=== PATIENT | male | born 1945 | race Caucasian/White ===

== ENCOUNTER → 2017-01-17 | Outpatient (CLI) | payer OTHER, MEDICARE ==
[~2017-01-17] MED LIST: ASPI81TA28 PO; CHOL2000 PO; CYAN100020 PO; DVN/160 PO; FOLATE PO; HYDR-5688 PO; LEVE250T PO; MELO7.5T5 PO; METF-384 PO; MULT-506 PO; SILD1TAB11 PO; TRAM-10 PO; VSC/10 PO; ZOLP5TAB6 PO
== END | disposition home or self-care (01) ==
LOC: C.LAB 13:11
PROVIDERS: ATTEND Urology
DX: N52.9 Male erectile dysfunction, unspecified (principal); R32 Unspecified urinary incontinence; C61 Malignant neoplasm of prostate

== ENCOUNTER 2017-02-09 10:13 | Inpatient (IN) | payer OTHER, MEDICARE ==
[2017-01-17 13:28] VITALS: Ht 182.9 cm; Wt 79.3 kg
--- NOTE | 2017-01-17 14:10 | PAT Medication Instructions ---
Service Date Jan 17, 2017. Current Home Medication List Aspirin (Aspirin Ec), 81 MG PO QAM Cholecalciferol (Vitamin D3), 1 CAP PO QAM Cyanocobalamin (Vitamin B12), 1 TAB PO QAM Hydrocodone/Acetaminophen 5MG/325MG (Palisades 5MG/325MG), 1 TABLET PO Q6 PRN for Pain Levetiracetam (Keppra), 1,000 MG PO BID Meloxicam (Mobic), 7.5 MG PO Q6 PRN for QAM Metformin Hcl (Glucophage), 1,000 MG PO BID Multivitamin (Multivitamin), 1 TAB PO QAM Sildenafil Citrate (Viagra), 25 MG PO PRN Solifenacin Succinate (Vesicare), 10 MG PO DAILY PRN for PRN Tramadol (Ultram), 50 MG PO Q4H PRN for Pain Valsartan (Diovan), 160 MG PO QAM Zolpidem Tartrate (Zolpidem Tartrate), 1 TAB PO HS PRN for Insomnia [Folate], 1,000 MCG PO QAM Medication Instructions For Your Scheduled Surgery - Hold the following medications 1 week prior to surgery per surgeon's instructions: Meloxicam (Mobic), 7.5 MG PO Q6 PRN for QAM - Hold the following medications 48 hours prior to surgery: Metformin Hcl (Glucophage), 1,000 MG PO BID - Hold the following medications the morning of surgery: [Folate], 1,000 MCG PO QAM Valsartan (Diovan), 160 MG PO QAM Sildenafil Citrate (Viagra), 25 MG PO PRN Multivitamin (Multivitamin), 1 TAB PO QAM Cholecalciferol (Vitamin D3), 1 CAP PO QAM Cyanocobalamin (Vitamin B12), 1 TAB PO QAM - Take the following medications the morning of surgery with a sip of water: Tramadol (Ultram), 50 MG PO Q4H PRN for Pain (can take up to four hours before the surgery if needed) Aspirin (Aspirin Ec), 81 MG PO QAM Hydrocodone/Acetaminophen 5MG/325MG (Palisades 5MG/325MG), 1 TABLET PO Q6 PRN for Pain (can take up to four hours before the surgery if needed) Solifenacin Succinate (Vesicare), 10 MG PO DAILY PRN for PRN (if needed) Levetiracetam (Keppra), 1,000 MG PO BID - Take the following medications as scheduled the night before surgery: Zolpidem Tartrate (Zolpidem Tartrate), 1 TAB PO HS PRN for Insomnia (if needed) Levetiracetam (Keppra), 1,000 MG PO BID Tramadol (Ultram), 50 MG PO Q4H PRN for Pain (if needed) Hydrocodone/Acetaminophen 5MG/325MG (Palisades 5MG/325MG), 1 TABLET PO Q6 PRN for Pain (if needed) Solifenacin Succinate (Vesicare), 10 MG PO DAILY PRN for PRN (if needed) If you have any questions please call us at [phone] or [phone] or [phone]
[2017-01-17 14:58] LABS: BASO % 0.6 %; BASO ABS # 0.04 K/uL (0-0.2); COMPLETE YES; EOS % 4.5 %; HEMATOCRIT 34.3 % (42-52); IG% 0.3 %; LYMPH ABS # 1.57 K/uL (1.2-3.4); MEAN CELL VOLUME 90.7 fL (80-100); MEAN CORPUSCULAR HEMOGLOBIN 30.2 pg (25-34); MEAN CORPUSCULAR HGB CONC 33.2 g/dl (32-36); MEAN PLATELET VOLUME 9.8 fL (7.4-10.4); MONO % 6.2 %; NEUT % 66.4 %; PLATELET COUNT 256 K/uL (130-400); RED BLOOD COUNT 3.78 M/uL (4.7-6.1); WHITE BLOOD COUNT 7.13 K/uL (4.8-10.8)
[2017-01-17 15:00] LABS: URINE APPEARANCE CLEAR (CLEAR); URINE BILIRUBIN NEG (NEG); URINE EPITHELIAL CELL AUTO 0-5 /lpf (0-5); URINE NITRITE NEG (NEG); URINE SPECIFIC GRAVITY 1.021 (1.000-1.030); UROBILINOGEN NEG (NEG); ZZUR CULT IF INDIC CLEAN CATCH NO
[2017-01-17 15:04] LABS: MANUAL MICROSCOPIC REQUIRED? NO; REVIEW REQ? NO
[2017-01-17 15:04] LABS: ESTIMATED AVERAGE GLUCOSE 123 mg/dl; HA1C FLAG Normal (Normal)
[2017-01-17 15:05] LABS: BUN/CREATININE RATIO 20.2 (10-20); CALCIUM 9.2 mg/dl (8.5-10.1); CREATININE 0.97 mg/dl (0.60-1.40); POTASSIUM 4.1 mmol/L (3.5-5.1)
[2017-01-17 15:05] LABS: URINE COLOR YELLOW
[2017-01-17 15:08] LABS: PARTIAL THROMBOPLASTIN RATIO 1.1; PROTHROMBIN TIME (PATIENT) 10.7 SECONDS (9.0-12.0)
--- NOTE | 2017-01-17 15:11 | DIAGNOSTIC IMAGING REPORT ---
CHEST PREADMISSION(PA/LAT) CLINICAL HISTORY: Preoperative chest COMPARISON STUDY: No previous studies for comparison. FINDINGS: The cardiac and mediastinal contours are normal. There is no evidence of focal pulmonary consolidation. There is no evidence of failure. No pleural effusions are visualized.[ IMPRESSION: No active disease in the chest. Electronically signed by: Gene Boyd M.D. 01/17/2017 3:10 PM Dictated Date/Time: 01/17/2017 3:09 PM
--- NOTE | 2017-02-08 19:11 | HISTORY & PHYSICAL EXAMINATION ---
DATE OF ADMISSION: 02/09/2017 CHIEF COMPLAINT: Chronic left shoulder pain. HISTORY OF PRESENT ILLNESS: This is a 71-year-old male patient of Dr. Hardwick'james complaining of chronic left shoulder pain, longstanding, now progressively getting worse status post a fall, recently in the last couple months. MRI has confirmed a chronic rotator cuff tear. The patient wishes to proceed with a left reversed total shoulder arthroplasty. PAST MEDICAL HISTORY: Hypertension, sleep apnea, carpal tunnel syndrome, diabetes mellitus, rheumatoid arthritis, spine problems, sciatica, kidney stones, prostate cancer. SOCIAL HISTORY: Nonsmoker, nondrinker. PAST SURGICAL HISTORY: Back surgery and prostate surgery. FAMILY HISTORY: Noncontributory. REVIEW OF SYSTEMS: The patient has been complaining of chronic left shoulder pain and decreased motion and strength. Otherwise, denies any shortness of breath, chest pain, nausea, vomiting or joint complaints. MEDICATIONS: Include gabapentin 4 times daily, metformin 1000 mg b.i.d., valsartan 160 mg 2 tablets daily, zolpidem tartrate 5 mg at bedtime, VESIcare 10 mg daily, tramadol as needed, Meloxicam 15 mg daily as needed, hydrocodone as needed, Centrum Silver daily, multivitamin daily, aspirin 81 mg daily, vitamin D3 200 international units daily, vitamin B12 1000 mcg daily, Optimized Folate 1000 mcg daily. ALLERGIES: No known drug allergies. PHYSICAL EXAMINATION: GENERAL: Well-developed, well-nourished 71-year-old male in no acute distress. The patient is alert and oriented x3 and pleasant. HEENT: Normocephalic, atraumatic. Extraocular motions are intact. Pupils are equal and reactive to light. HEART: Regular rate and rhythm. No murmurs appreciated. LUNGS: Clear. ABDOMEN: Soft, nontender, bowel sounds present. EXTREMITIES: Left shoulder reveals 4/5 strength with an active range of motion of 45 degrees. Passively 95 degrees with pain. He has crepitation with passive range of motion. NEUROLOGIC: Neurovascularly, he is intact in his left upper extremity. DIAGNOSES: Left shoulder rotator cuff tendinopathy and osteoarthritis. He also has a history of hypertension, sleep apnea, carpal tunnel syndrome, diabetes mellitus, rheumatoid arthritis, spine problems, sciatica, kidney stones, prostate cancer. PLAN: The patient was advised of his diagnosis. Indications, risks, benefits, and postop course have all been reviewed. The patient wishes to proceed with a left reversed total shoulder arthroplasty. Necessary consent forms, preoperative testing and clearances will be obtained. JOELLEN
[~2017-02-09] VITALS: Ht 182.9 cm; Wt 79.3 kg
[2017-02-09] VITALS (8 sets, daily range): BP systolic 155–178; BP diastolic 73–86; PULSE 59–97; TEMP 36.3–37.1; O2SAT 98–100
[~2017-02-09 10:13] MED LIST changes: +ACETAMINOPHEN 500 MG TAB PO SCH; +ATROPINE SULFATE 0.1 MG/ML 5ML SYR IV PRN; +BUPIVACAINE/EPINEPHRINE 0.5% MPF 1:200,000 10 ML VIAL ONE; +CEFAZOLIN 2000MG IV PUSH 10 ML IV SCH; +CeleBREX 200 MG CAP PO SCH; +EpHEDrine SULFATE INJ 50 MG/ML AMP IV PRN; +FAMOTIDINE 20 MG TAB PO SCH; +FENTANYL CITRATE INJ 50 MCG/1 ML 2 ML VIAL IV PRN; +GABAPENTIN 300 MG CAP PO SCH; +HYDROmorphone INJ 1 MG/ML SYR IV PRN; +LACTATED RINGER'S 1000ML 1,000 ML IV SCH; +METOCLOPRAMIDE HCL 10 MG TAB PO SCH; +ONDANSETRON INJ 2 MG/ML 2 ML VIAL IV PRN; +ROPIVACAINE 0.5% 5 MG/ML 30 ML VIAL ONE
--- NOTE | 2017-02-09 10:46 | History & Physical Bridge Note ---
H&P Re-Evaluation Bridge Note: I have examined the patient, reviewed the History & Physical and in the interval since the performance of the History & Physical I have noted the following changes of clinical significance: No changes noted
[2017-02-09] MEDS: LACTATED RINGER'S 1000ML 1,000 ML IV SCH ×2 (10:58→18:08)
[2017-02-09] MEDS ORDERED: NEOSTIGMINE METHYLSULFATE 5 MG/5 ML SYR ONE (11:04)
[2017-02-09] MEDS ORDERED: LIDOCAINE HCL 2% 2 ML VIAL (20MG/ML) ONE (11:04)
[2017-02-09] MEDS ORDERED: ONDANSETRON INJ 2 MG/ML 2 ML VIAL ONE (11:04)
[2017-02-09] MEDS ORDERED: MIDAZOLAM HCL 1 MG/ML 2ML VIAL ONE ×2 (11:04)
[2017-02-09] MEDS ORDERED: EpHEDrine SULFATE INJ 50 MG/ML AMP ONE (11:04)
[2017-02-09] MEDS ORDERED: GLYCOPYRROLATE INJ 0.2 MG/ML VIAL ONE (11:04)
[2017-02-09] MEDS ORDERED: SUCCINYLCHOLINE CHLORIDE 20 MG/ML 10 ML VIAL IV ONE (11:04)
[2017-02-09] MEDS ORDERED: PHENYLEPHRINE HCL INJ 10 MG/ML VIAL ONE (11:04)
[2017-02-09] MEDS ORDERED: FENTANYL CITRATE INJ 50 MCG/1 ML 2 ML VIAL ONE (11:04)
[2017-02-09] MEDS ORDERED: PROPOFOL IV EMULSION 10 MG/ML 20 ML VIAL IV ONE (11:04)
[2017-02-09] MEDS ORDERED: DEXAMETHASONE SOD INJ 4 MG/ML VIAL ONE (11:04)
[2017-02-09] MEDS ORDERED: BACITRACIN 50000 UNIT VIAL ONE (11:24)
--- NOTE | 2017-02-09 16:01 | [facility] Post Operative Brief Note ---
Immediate Operative Summary Operative Date Feb 09, 2017. Pre-Operative Diagnosis Left shoulder rotator cuff tendinopathy and osteoarthritis norepairable rotaotr cuff tear and biceps rupture Post-Operative Diagnosis same Procedure(s) Performed Left Reverse Total Shoulder Arthroplasty Surgeon Dr. Hardwick Arch Cushion Skiving Machine Operator Surgeon(s) Nasim Bray PA-C Estimated Blood Loss 75cc Findings as above subscapularis supraspinatus and infraspinatus tears Specimens A. Left humeral head Drains 2 hemovac Anesthesia general and regional Complication(s) None Disposition Recovery Room / PACU
[2017-02-09] MEDS ORDERED: ONDANSETRON INJ 2 MG/ML 2 ML VIAL IV PRN (16:15)
[2017-02-09] MEDS ORDERED: METOCLOPRAMIDE HCL INJ 5 MG/ML 2 ML VIAL IV PRN (16:15)
[2017-02-09] MEDS ORDERED: MoRPHine SULFATE 2 MG/ML CARP IV PRN (16:15)
[2017-02-09] MEDS ORDERED: BISACODYL 10 MG SUPP PR PRN (16:15)
[2017-02-09] MEDS ORDERED: MAGNESIUM HYDROXIDE SUSP 30 ML UDC PO PRN (16:15)
[2017-02-09] MEDS ORDERED: SOD PHOSPHATE/SOD BIPHOSPHATE ENEMA 132 ML BTL PR PRN (16:15)
[2017-02-09] MEDS ORDERED: ZOLPIDEM TARTRATE 5 MG TAB PO PRN (16:15)
[2017-02-09] MEDS ORDERED: NALOXONE HCL 0.4 MG/1 ML VIAL/CARP IV PRN (16:15)
[2017-02-09] MEDS ORDERED: SILDENAFIL CITRATE 25 MG PO SCH (16:15)
--- NOTE | 2017-02-09 16:43 | Anesthesiology Progress Note ---
Anesthesia Post Op Note Date & Time Feb 09, 2017 at 16:43 Vital Signs Pain Intensity: 0 Vital Signs Past 12 Hours Date Time Temp Pulse Resp B/P (MAP) Pulse Ox O2 Delivery O2 Flow Rate FiO2 02/09/17 16:35 61 16 166/85 100 Nasal Cannula 2 02/09/17 16:25 61 16 167/82 99 Nasal Cannula 2 02/09/17 16:15 66 15 154/94 100 Oxymask 10 02/09/17 16:06 36.2 76 23 164/94 100 Oxymask 10 02/09/17 13:10 61 18 154/75 (101) 100 High Flow Oxygen 02/09/17 13:01 66 18 150/87 (108) 100 High Flow Oxygen 02/09/17 12:50 58 18 139/68 (91) 98 02/09/17 11:03 37.1 64 18 171/86 98 Room Air Notes Mental Status: alert / awake / arousable, participated in evaluation Pt Amnestic to Procedure: Yes Nausea / Vomiting: adequately controlled Pain: adequately controlled Airway Patency, RR, SpO2: stable & adequate BP & HR: stable & adequate Hydration State: stable & adequate Anesthetic Complications: no major complications apparent
--- NOTE | 2017-02-09 16:51 | DIAGNOSTIC IMAGING REPORT ---
LEFT SHOULDER 2 VIEWS CLINICAL HISTORY: Postoperative examination. FINDINGS: 2 portable supine views of the left shoulder are obtained. No prior studies are available for comparison at the time of dictation. The skeletal structures are osteopenic. A left shoulder arthroplasty is in near-anatomic alignment. No acute fracture is seen. No periprosthetic lucency is identified. Productive change is noted at the acromioclavicular joint. There are expected postoperative changes overlying the left shoulder including skin clips, a surgical drain, subcutaneous gas, and soft tissue swelling. The visualized left lung parenchyma appears clear. IMPRESSION: Expected postoperative findings status post left shoulder arthroplasty. No acute fracture is seen. Electronically signed by: Noel Dotson M.D. 02/09/2017 4:50 PM Dictated Date/Time: 02/09/2017 4:49 PM
[2017-02-09] MEDS ORDERED: NURSING VERBAL MED ORDER ONE (19:00)
[2017-02-09] MEDS ORDERED: MoRPHine SULFATE 4 MG/ML 1 ML CARP\\VIAL IV PRN (19:00)
[2017-02-09] MEDS ORDERED: HydrALAZINE HCL 20 MG/ML VIAL IV. PRN (19:00)
[2017-02-09] MEDS: POTASSIUM CHLORIDE INJ 10 MEQ in SODIUM CHLORIDE 0.9% 1000ML 1,000 ML IV SCH (19:32)
--- NOTE | 2017-02-09 19:43 | Medical Consult ---
Consultation Date of Consultation: Feb 09, 2017. Attending Physician: Arnie Hardwick M.D. Reason for Consultation: Medical management History of Present Illness This is a 71-year-old male with PMHx of prostate cancer s/p surgical resection and XRT in 1998, incontinence, seizure disorder, sleep apnea, carpal tunnel syndrome, DM II, rheumatoid arthritis, spine problems, sciatica, nephrolithiasis who presents for an elective left reverse total shoulder arthroplasty by Dr. Hardwick on 02/09/17. Patient reports his shoulder currently is pain-free. Earlier patient reports falling with causing discomfort, since being adjusted this has resolved. He reports not being able to piece since coming up to the floor from PACU, and notes he feels as if he's needs to go slightly. Patient denies any lower abdominal pain. He reports not having a Isaacs during surgery. Patient anticipates utilizing [facility] PT/OT after 4-6 weeks from surgery per orthopedics. Past Medical/Surgical History Medical history Arthritis Hypertension Prostate cancer incontinence Seizure disorder sleep apnea carpal tunnel syndrome DM II rheumatoid arthritis sciatica hx nephrolithiasis Surgical history Back surgery Inguinal hernia repair Nasal septal deviation repair Radical prostatectomy Social History Smoking Status: Never Smoker Smokeless Tobacco Use: No Alcohol Use: none Drug Use: none Marital Status: Housing Status: lives with family Occupation Status: employed (electrician's helper) Allergies Coded Allergies: No Known Allergies (Unverified , 01/17/17) Current Inpatient Medications Current Inpatient Medications Medications (Trade) Dose Ordered Sig/David Route Start Time Stop Time Status Last Admin Dose Admin Aspirin (Ecotrin Tab) 81 mg QAM PO 02/10/17 09:00 03/12/17 08:59 Levetiracetam (Keppra Tab) 1,000 mg BID PO 02/09/17 21:00 03/11/17 20:59 Valsartan (Diovan Tab) 160 mg QAM PO 02/10/17 09:00 03/12/17 08:59 Zolpidem Tartrate (Ambien Tab) 5 mg HSZ PRN PO 02/09/17 16:15 03/11/17 16:14 Cholecalciferol (Vitamin D Tab) 2,000 inter.unit QAM PO 02/10/17 09:00 03/12/17 08:59 Cyanocobalamin (Vitamin B-12 Tab) 1,000 mcg QAM PO 02/10/17 09:00 03/12/17 08:59 Non-Formulary Medication (Solifenacin Succinate (Vesicare)) 10 mg DAILY PRN PO 02/09/17 16:15 03/11/17 16:14 UNV Folic Acid (Folvite Tab) 1 mg QAM PO 02/10/17 09:00 03/12/17 08:59 Diphenhydramine HCl (Benadryl Cap) 25 mg Q8 PRN PO 02/09/17 16:15 03/11/17 16:14 Zolpidem Tartrate (Ambien Tab) 5 mg HSZ PRN PO 02/09/17 16:15 03/11/17 16:14 Metoclopramide HCl (Reglan Inj) 10 mg Q6H PRN IV 02/09/17 16:15 03/11/17 16:14 Ondansetron HCl (Zofran Inj) 4 mg Q6H PRN IV 02/09/17 16:15 03/11/17 16:14 Pantoprazole Sodium (Protonix Tab) 40 mg QAM PO 02/10/17 09:00 03/12/17 08:59 Potassium Chloride 10 meq/ Sodium Chloride 1,005 ml @ 100 mls/hr Q10H3M IV 02/09/17 19:00 02/10/17 16:00 Oxycodone HCl (Roxicodone Immediate Rel Tab) `1-2 TABS FOR PAIN `1 TAB... Q4H PRN PO 02/09/17 16:15 02/23/17 16:14 Oxycodone HCl (Oxycontin Tab) 10 mg Q12 PO 02/09/17 21:00 02/23/17 20:59 Acetaminophen (Tylenol Tab) 1,000 mg Q8H PO 02/09/17 22:00 03/11/17 21:59 Morphine Sulfate (MoRPHine SULFATE INJ) as above Q2H PRN IV 02/09/17 16:15 02/23/17 16:14 UNV Naloxone HCl (Narcan Inj) 0.1 mg Q2M PRN IV 02/09/17 16:15 03/11/17 16:14 Magnesium Hydroxide (Milk Of Magnesia Susp) 30 ml Q6H PRN PO 11/9/17 16:15 03/11/17 16:14 Bisacodyl (Dulcolax Supp) 10 mg DAILY PRN SD 02/09/17 16:15 03/11/17 16:14 Sodium Biphosphate/ Sodium Phosphate (Fleet Enema) 132 ml DAILY PRN SD 02/09/17 16:15 03/11/17 16:14 Docusate Sodium (coLACE CAP) 100 mg BID PO 02/09/17 21:00 03/11/17 20:59 Multivitamins (Multivitamin Tab) 1 tab DAILY PO 02/10/17 09:00 03/12/17 08:59 Cefazolin Sodium 1000 mg/Dextrose 55 ml @ 100 mls/hr Q8H IV 02/09/17 16:15 02/10/17 00:47 UNV Insulin Aspart (novoLOG ASPART) SLIDING SCALE G... ACHS SC 02/09/17 21:00 03/11/17 20:59 Review of Systems Constitutional: No fever, sweats or chills Eyes: No diplopia, no worsening or blurred vision ENT: normal hearing, no trouble swallowing Respiratory: No cough, sputum, dyspnea at rest or on exertion Cardiovascular: No chest pain, tightness or palpitations Abdomen: No pain, nausea, vomiting, diarrhea or constipation Musculoskeletal: No joint pain, calf pain, swelling. + Left shoulder with some discomfort earlier, currently pain-free Neurologic: No weakness, numbness/tingling, or balance problems, + neuropathy worse in the right leg compared to the last and goes up to the ankle. Psychiatric: No anxiety or depression Skin: No rash or itch Physical Exam Date Time Temp Pulse Resp B/P (MAP) Pulse Ox O2 Delivery O2 Flow Rate FiO2 02/09/17 18:25 100 Nasal Cannula 2.0 02/09/17 18:00 36.3 60 18 178/85 (116) 100 Nasal Cannula 2.0 02/09/17 17:29 62 20 173/77 (109) 100 Nasal Cannula 2.0 02/09/17 17:05 99 Nasal Cannula 2.0 02/09/17 17:00 36.6 59 16 160/80 (106) 99 Nasal Cannula 2.0 02/09/17 16:45 36.2 62 15 160/80 99 Nasal Cannula 2 02/09/17 16:35 61 16 166/85 100 Nasal Cannula 2 02/09/17 16:25 61 16 167/82 99 Nasal Cannula 2 02/09/17 16:15 66 15 154/94 100 Oxymask 10 02/09/17 16:06 36.2 76 23 164/94 100 Oxymask 10 02/09/17 13:10 61 18 154/75 (101) 100 High Flow Oxygen 02/09/17 13:01 66 18 150/87 (108) 100 High Flow Oxygen 02/09/17 12:50 58 18 139/68 (91) 98 02/09/17 11:03 37.1 64 18 171/86 98 Room Air General: awake, alert, no apparent distress, +thin Head: Normocephalic, atraumatic ENT: PERRL, EOMI, no pharyngeal exudate, mucous membranes moist Chest: Clear to auscultation, on room air, no adventitious breath sounds Cardiac: Regular rate and rhythm, no murmur, no JVD, normal peripheral pulses, good capillary refill Abdominal: NABS x 4 quadrants, soft, nontender to palpation, no rebound, guarding or tenderness Extremities: + left shoulder dressing appears C/D/I, currently in sling, Hemovac drain in place. Otherwise normal inspection, no peripheral edema or erythema, calfs nontender to palpation Psych: Normal mood and affect Neuro: AAO x 3, speech is clear, no peripheral sensory deficits Laboratory Results Last 24 Hours Test 02/09/17 10:55 02/09/17 16:08 02/09/17 17:01 Bedside Glucose 106 mg/dl 114 mg/dl 131 mg/dl Assessment & Plan This is a 71-year-old male with PMHx of prostate cancer s/p surgical resection and XRT in 1998, incontinence, seizure disorder, sleep apnea, carpal tunnel syndrome, DM II, rheumatoid arthritis, lumbar spine DJD, sciatica, nephrolithiasis who presents for an elective left reverse total shoulder arthroplasty by Dr. Hardwick on 02/09/17. S/P total reverse left shoulder arthroplasty - Pain management, bowel regimen, DVT with ASA 81 mg daily per the primary team - PT/OT Urinary retention -Bladder scan Q4H and straight cathprn for urine retention of>450 mL -NSS currently running at 100 ml/hr - Patient is tolerating oral intake without difficulties Sciatica Lumbar DJD History of microdiscectomy 10 years ago -Has seen Dr. Tovar as an outpatient, previously received injections into the lumbar spine for pain relief but it has been more than 6 months since that point. He plans to make an appointment after this hospitalization and after healing of shoulder DM type II -Resume metformin 1000mg BID - Insulin sliding scale with Accu-Cheks before meals at bedtime Hypertension - Continue valsartan 160 mg every morning - Blood pressure is elevated in the 170s to 180s - can use IV hydralazine prn for SBP >175 Seizure disorder - Continue Keppra 1000 mg po BID - Follows with Dr. Bansal as an outpatient Insomnia -Continue zolpidem 5 mg qhs prn DVT prophylaxis: Teds, SCDs, ASA 81 mg daily CODE STATUS: Full code Disposition: From home, lives with , anticipate outpatient PT and OT after 4 -6 weeks. Thank you for allowing us to participate in the care of Mr. Musa, please do not hesitate to call with any questions or concerns. Supervising Note by Dr. Go I agree with above note. My exam did not differ from the APC's described in this note. I discussed plan of care with APC and patient in detail and answered all of the patient's questions.
--- NOTE | 2017-02-09 20:37 | OPERATIVE REPORT ---
DATE OF OPERATION: 02/09/2017 INDICATION FOR PROCEDURE: The patient is a 71-year-old male who presents with chronic pain and weakness in his left shoulder. He was worked up with x-rays and MRI demonstrating a massive rotator cuff tear, biceps rupture. Based on x-ray and MRI criteria, he has nonrepairable rotator cuff tear. Clinically, he has pseudoparalytic arm and cannot raise his arm up over head and he has a functional deltoid when his arm is assisted to be raised over head. PREOPERATIVE DIAGNOSES: Left shoulder rotator cuff arthropathy, chronic nonrepairable rotator cuff tear, long head biceps rupture, nonrepairable rotator cuff. POSTOPERATIVE DIAGNOSIS: Same. PROCEDURE: Left reverse total shoulder arthroplasty. SURGEON: Arnie Hardwick MD. OCULAR PATHOLOGIST: Nasim Bray PA-C. ANESTHESIA: Regional block and general. OPERATIVE PROCEDURE: The patient was taken to the operating room and anesthetized with regional block and general anesthetic. He was placed on about a 30 degree beachchair position on the operating room table. A towel roll was placed on the medial border of his left scapula. He was translated to the left side of the bed, so his shoulder could be manipulated off the bed as necessary. His head was placed on a foam headrest. He had protective eyewear placed. His lower extremities were well padded. He had TEDs and SCDs placed. His left shoulder exam demonstrated good passive range of motion and subacromial crepitation and anterior instability. After shoulder was sterilely prepped and draped with ChloraPrep, an anterior deltopectoral approach was performed. A longitudinal incision was made in the deltopectoral interval. Skin was incised sharply. Subcutaneous flaps were elevated. The cephalic vein was dissected out and retracted laterally with the deltoid. Pectoralis was retracted medially. The upper centimeter of the pectoralis was released for inferior exposure. There was a large bursal collection of fluid overlying the subscapularis tendon. An abnormal subscapularis tendon which appeared to be torn and moderately retracted. He had a very thin tendinopathic subscap tissue but some of the lower subscapularis was still attached. The biceps tendon was noted to be ruptured and retracted distally. There was still some muscle fibers of the subscapularis that was thin tissue that was confluent with the capsule of the joint and some of this tissue was intact and still repairable. The supraspinatus tissue was completely torn most of the infraspinatus was torn. He did have a small section of infraspinatus and teres minor still intact posteriorly. There were degenerative changes on the undersurface of the intact rotator cuff tissue. The humeral head showed good articular surface as well as the glenoid. There was biceps remnants in the joint where it had previously ruptured and retracted. First, I removed all the subscapularis bursal tissue and subacromial bursal tissue. Then we freed up the subdeltoid adhesions around the posterior deltoid and identified the circumflex vessels that were tied off with silk ties and divided laterally. The muscle fibers of the subscapularis was split at the level of the circumflex vessels, reflected off the inferior capsule. These fibers were significantly scarred there. We did use a Kitner soft tissue elevator to free up these fibers and placed a blunt Марина retractor there. We did try to identify the axillary nerve with a tug test, but could not identify in typical fashion. The upper part of the capsule was already torn off the lesser tuberosity and the lower part was released. Then we did release of the capsule and remaining subscapularis tendon tissue off the neck of the humerus subperiosteally. At this time, I did a capsular release starting in the rotator interval and extended down to about the 5 o'clock position staying above the level of the course of the axillary nerve. I placed a #1 Vicryl traction suture into the end of the capsular subscapularis tissue. The Fukuda retractor was placed into the joint and the humeral head was retracted posteriorly. The degenerative glenoid labrum was resected circumferentially and the biceps tendon was resected. Then I did a capsular release anterior inferiorly and posterior inferiorly using electrocautery on bone and a Monzon elevator staying the capsular glenoid bone junction to stay away from the course of the axillary nerve. After I completed the releases then the humeral head was exposed with extension and external rotation. I used the Tornier Aequalis reversed II glenoid component and the Ascend Flex shoulder system humeral component. The guide for the neck cut was placed down to the humeral head. The guide was set at 20 degrees of retroversion. The humeral head cut was made. The patient had very hard bone. We did open up the canal with an awl, followed by broaches up to a size 4, which had a tight fit. The patient had dense cancellous bone. We placed a cup protector in place and retracted the humeral head posterior to the glenoid. I curetted the articular cartilage off the glenoid, so we get the tubers and the glenoid. Then I used the guide for the 29 mm baseplate. I drilled the hole for the reamer at 10 degrees of inferior tilt. I used the reamer at 10 degrees of inferior tilt. Then we widened the hole for the baseplate and impacted the 29 mm baseplate in position with tight pressfit. We used anterior and posterior compression screws and superior and inferior locking screws to transfix the baseplate with an excellent fixation. Then the fan reamer was placed for the glenoid glenosphere at 36 mm diameter and I chose to use a +2 offset with offset inferior. After irrigation of the baseplate and clearing all the bone from the fan reamer, then the glenoid sphere was impacted onto the base plate and then screw was tightened and we assessed the stability and then moved on back to the humerus. We used the +0 thickness reversed tray low offset and dialed this into the best coverage over the humeral cut surface and then used the +6 mm reversed insert trial and this had good stability through full range of motion. There was no shuck and the soft tissue tension on the deltoid and conjoined tendon appeared appropriate. The trial was removed and then the final component was assembled. Final component was the 4B long TTC humeral stem Ascend Flex system and that was assembled to the +0 reversed tray, assembled to the 6 mm 36 mm diameter polyethylene insert. We placed drill holes through the hard bone, the bicipital groove area lateral to the lesser tuberosity. I placed three #5 FiberWire sutures. Then these were later used for the repair. The implant was then impacted into position with a tight pressfit. The humerus was reduced to the glenosphere, stability was verified and then after copious irrigation with antibiotic solution and bacitracin. The subscapularis capsular type tissue was repaired using the #5 FiberWire sutures with Vijay-Sanchez suture technique. The pectoralis was repaired with a [id number] #2 FiberWire suture. I took the arm through range of motion and patient had 130 degrees of forward elevation, 90 degrees of abduction and 55 degrees of external rotation without any tension on the repair. After further irrigation, 2 drains were brought out laterally into a Hemovac and the deltoid pectoral interval was repaired with [id number] #1 Vicryl sutures. The subcutaneous tissue was closed with interrupted 2-0 Vicryl, skin closed with abelardo. Sterile dressing was applied and a sling immobilizer. The patient tolerated the procedure well. SHYLA Eden was my cutter first. He functioned as cutter first during the procedure with performing soft tissue retraction, instrument management and performed the subcutaneous and skin closure and will participate in postoperative care of the patient. I attest to the content of the Intraoperative Record and any orders documented therein. Any exception s are noted below.
[2017-02-09] MEDS ORDERED: VALSARTAN 80 MG TAB PO ONE (20:45)
[2017-02-09] MEDS: DOCUSATE SODIUM 100 MG CAP PO SCH (21:20)
[2017-02-09] MEDS: OXYCODONE HCL 10 MG TABCR (OXYCONTIN) PO SCH (21:20)
[2017-02-09] MEDS: LEVETIRACETAM 500 MG TAB PO SCH (21:21)
[2017-02-09] MEDS: ACETAMINOPHEN 500 MG TAB PO SCH (21:22)
[2017-02-09] MEDS: CEFAZOLIN IV 1,000 MG in SYRINGE 0 ML IV SCH (21:23)
[2017-02-09] MEDS: INSULIN ASPART 100 UNITS/ML 3 ML PEN SC SCH (21:29)
[2017-02-10] MEDS: ZOLPIDEM TARTRATE 5 MG TAB PO PRN (00:07)
[2017-02-10 03:08] VITALS: BP 129/72; PULSE 93; TEMP 36.7; O2SAT 96
[2017-02-10] MEDS: ACETAMINOPHEN 500 MG TAB PO SCH ×3 (05:11→21:22)
[2017-02-10] MEDS: CEFAZOLIN IV 1,000 MG in SYRINGE 0 ML IV SCH (05:12)
[2017-02-10] MEDS: POTASSIUM CHLORIDE INJ 10 MEQ in SODIUM CHLORIDE 0.9% 1000ML 1,000 ML IV SCH ×2 (05:12→15:06)
[2017-02-10 05:48] LABS: HEMATOCRIT 29.6 % (42-52); MEAN CELL VOLUME 88.9 fL (80-100); MEAN CORPUSCULAR HEMOGLOBIN 29.4 pg (25-34); MEAN CORPUSCULAR HGB CONC 33.1 g/dl (32-36); PLATELET COUNT 215 K/uL (130-400); RED BLOOD COUNT 3.33 M/uL (4.7-6.1); WHITE BLOOD COUNT 13.21 K/uL (4.8-10.8)
[2017-02-10 06:24] LABS: BUN/CREATININE RATIO 16.2 (10-20); CALCIUM 7.9 mg/dl (8.5-10.1); CREATININE 1.23 mg/dl (0.60-1.40); POTASSIUM 4.3 mmol/L (3.5-5.1)
[2017-02-10 07:41] VITALS: BP 130/58; PULSE 90; TEMP 36.5; O2SAT 97
[2017-02-10 08:42] VITALS: O2SAT 97
--- NOTE | 2017-02-10 08:50 | Orthopedic Progress Note ---
Orthopedic Progress Note Date of Service Feb 10, 2017. Subjective Post OP Day: 1 Reports: feeling well, pain controlled w PO medications, Denies: complaints, chest pain, SOB, nausea / vomiting, light headedness, calf pain Objective calves soft nontender, N/V intact, capillary refill less than 2 sec., dressing C /D/I, A&O x3 SLING IN TACT, FINGERS MOBILE Date Time Temp Pulse Resp B/P (MAP) Pulse Ox O2 Delivery O2 Flow Rate FiO2 02/10/17 08:42 97 Room Air 02/10/17 07:41 36.5 90 18 130/58 (82) 97 Room Air 02/10/17 07:25 Room Air 02/10/17 03:08 36.7 93 16 129/72 (91) 96 Room Air 02/10/17 00:10 Room Air 02/09/17 23:01 36.5 97 17 160/73 (102) 98 Room Air 02/09/17 20:02 36.3 84 18 157/84 (108) 100 Room Air 02/09/17 19:11 36.3 65 18 155/76 (102) 98 Room Air 02/09/17 18:25 100 Nasal Cannula 2.0 02/09/17 18:00 36.3 60 18 178/85 (116) 100 Nasal Cannula 2.0 02/09/17 17:29 62 20 173/77 (109) 100 Nasal Cannula 2.0 02/09/17 17:05 99 Nasal Cannula 2.0 02/09/17 17:00 36.6 59 16 160/80 (106) 99 Nasal Cannula 2.0 02/09/17 16:45 36.2 62 15 160/80 99 Nasal Cannula 2 02/09/17 16:35 61 16 166/85 100 Nasal Cannula 2 02/09/17 16:25 61 16 167/82 99 Nasal Cannula 2 02/09/17 16:15 66 15 154/94 100 Oxymask 10 02/09/17 16:06 36.2 76 23 164/94 100 Oxymask 10 02/09/17 13:10 61 18 154/75 (101) 100 High Flow Oxygen 02/09/17 13:01 66 18 150/87 (108) 100 High Flow Oxygen 02/09/17 12:50 58 18 139/68 (91) 98 02/09/17 11:03 37.1 64 18 171/86 98 Room Air Laboratory Results 24 Hours: Test 02/10/17 05:33 Hematocrit 29.6 % Hemoglobin 9.8 g/dL Assessment & Plan Assessment: POD #1, LEFT REVERSED TSA Plan: LIMITED PT/ OT, NO FORMAL PT JUST HEP DVT PROPH- ASA D/C PLANNING- HOME PER MEDICINE Inhouse Planning Pain Management: Oxycontin, Morphine, PO Tylenol, Oxy IR DVT Prophylaxis: TEDs, SCDs, ASA Discharge Planning Discharge Planning: home Pain Management: Oxycontin, PO Tylenol, Oxy IR DVT Prophylaxis: ASA
--- NOTE | 2017-02-10 08:51 | Discharge Instructions ---
Discharge Instructions Date of Service Feb 10, 2017. Admission Reason for Admission: Left Shoulder Rotator Cuff Arthropahty Discharge Discharge Diagnosis / Problem: LEFT REVERSEDE TSA Discharge Goals Goal(s): Improve function Activity Recommendations Activity Limitations: as noted below . Instructions / Follow-Up Instructions / Follow-Up ACTIVITY RECOMMENDATIONS: SELF CARE INSTRUCTIONS AFTER TOTAL SHOULDER ARTHROPLASTY REVERSE A. You may do daily exercises as taught in physical therapy while in hospital. No lifting with the operative arm. B. You are to wear your sling/immobilizer at all times EXCEPT when performing your daily exercises and for hygiene purposes. C. You may perform dry, daily dressing changes. Please keep your incision covered. You may shower 48 hours after surgery. Do not apply soap or any ointment/ lotions directly over incision. Do not soak incision in bath tub/swimming pool. D. You may use ice as needed to operative shoulder. SPECIAL CARE INSTRUCTIONS: VERY IMPORTANT TO READ AND REVIEW A. There are a few signs you need to watch for after you are home. Call [facility] at [phone] if you experience any of the followin. Increased severe shoulder pain. Some pain is expected especially when you exercise. 2. Increased swelling in you shoulder or arm; pain or swelling in either upper extremity. 3. Any fluid drainage from the incision. 4. Shortness of breath or chest pain. B. Please call [facility] at [phone] if you have any questions or concerns about your operation or recovery. C. Call your physician if: 1. Temperature is greater than 101 degrees (F). 2. Pain is not relieved by prescribed pain medications. 3. Increase drainage or redness from incision. 4. Unanswered questions or concerns. FOLLOW UP VISIT: Please call [facility] at [phone] to schedule a follow up appointment with Dr. Hardwick or his PA in 12-14 days from your surgery date. Current Hospital Diet Patient's current hospital diet: Diabetes Type 2 Diet Discharge Diet Recommended Diet: Regular Diet Procedures Procedures Performed: Left Reverse Total Shoulder Arthroplasty Pending Studies Studies pending at discharge: no Laboratory Results Hemoglobin A1c Test 01/17/17 14:23 Range/Units Estimated Average Glucose 123 mg/dl Hemoglobin A1c 5.9 H 4.5-5.6 % Medical Emergencies . Who to Call and When: Medical Emergencies: If at any time you feel your situation is an emergency, please call 911 immediately. . Non-Emergent Contact Non-Emergency issues call your: Primary Care Provider . "Provider Documentation" section prepared by Nasim Bray. . VTE Core Measure Inpt VTE Proph given/why not?: Other Anticoagulation (ASA), T.E.D. Stockings, SCD's [place] Drug Monitoring Program Search Results: patient reviewed within database, no issues identified
[2017-02-10] MEDS: LEVETIRACETAM 500 MG TAB PO SCH ×2 (08:56→21:10)
[2017-02-10] MEDS: CHOLECALCIFEROL 1000 INTER.UNIT TAB PO SCH (08:57)
[2017-02-10] MEDS: CYANOCOBALAMIN 500 MCG TAB (VIT B-12) PO SCH (08:57)
[2017-02-10] MEDS: DOCUSATE SODIUM 100 MG CAP PO SCH ×2 (08:57→21:11)
[2017-02-10] MEDS: MULTIVITAMIN TAB PO SCH (08:57)
[2017-02-10] MEDS: PANTOprazole SOD 40 MG TAB PO SCH (08:57)
[2017-02-10] MEDS: ASPIRIN 81 MG ECTAB PO SCH (08:58)
[2017-02-10] MEDS ORDERED: VALSARTAN 80 MG TAB PO SCH ×2 (09:00→21:00)
[2017-02-10] MEDS: INSULIN ASPART 100 UNITS/ML 3 ML PEN SC SCH ×4 (09:00→21:21)
[2017-02-10] MEDS: OXYCODONE HCL 10 MG TABCR (OXYCONTIN) PO SCH ×2 (09:04→21:10)
[2017-02-10 11:20] VITALS: BP 124/78; PULSE 93; TEMP 36.7; O2SAT 99
[2017-02-10] MEDS: OXYCODONE HCL IR 5 MG TAB (IMMEDIATE RELEASE) PO PRN ×2 (12:26→19:41)
[2017-02-10 15:33] VITALS: BP 117/66; PULSE 89; TEMP 37; O2SAT 98
--- NOTE | 2017-02-10 17:13 | Progress Note ---
Orthopedic SOAP Note Subjective Date of Service: Feb 10, 2017. Reports: feeling well Additional Notes: still some numbness in index finger Objective good radial pulse , axillary motor nerve and sensation intact, able to abduct shoulder actively, cannot flex index finger or thumb actively. Date Time Temp Pulse Resp B/P (MAP) Pulse Ox O2 Delivery O2 Flow Rate FiO2 02/10/17 15:33 37.0 89 16 117/66 (83) 98 Room Air 02/10/17 15:20 Room Air 02/10/17 11:20 36.7 93 18 124/78 (93) 99 Room Air 02/10/17 08:42 97 Room Air 02/10/17 07:41 36.5 90 18 130/58 (82) 97 Room Air 02/10/17 07:25 Room Air 02/10/17 03:08 36.7 93 16 129/72 (91) 96 Room Air 02/10/17 00:10 Room Air 02/09/17 23:01 36.5 97 17 160/73 (102) 98 Room Air 02/09/17 20:02 36.3 84 18 157/84 (108) 100 Room Air 02/09/17 19:11 36.3 65 18 155/76 (102) 98 Room Air 02/09/17 18:25 100 Nasal Cannula 2.0 02/09/17 18:00 36.3 60 18 178/85 (116) 100 Nasal Cannula 2.0 02/09/17 17:29 62 20 173/77 (109) 100 Nasal Cannula 2.0 Laboratory Results 24 Hours: Test 02/10/17 05:33 Hematocrit 29.6 % Hemoglobin 9.8 g/dL Assessment POD #1, LEFT REVERSED TSA,possible traction neuropraxia vs residual effects of nerve block Plan LIMITED PT/ OT, NO FORMAL PT JUST HEP,observe neuro status. DVT PROPH- ASA D/C PLANNING- HOME PER MEDICINE
--- NOTE | 2017-02-10 18:09 | Hospitalist Progress Note ---
Hospitalist Progress Note Date of Service Feb 10, 2017. (Patience Perkins PA-C) Subjective Pt evaluation today including: conversation w/ patient, conversation w/ family , physical exam, chart review, lab review, review of studies, review of inpatient medication list Patient seen and evaluated. No acute events overnight. Reporting good pain control with medications but having significant pain off medications. Ambulating without difficulty. Tolerating a diet. Still has some numbness/tingling in L hand resulting in some limitation in movement. Perfusion adequately. Constitutional: No fever, No chills Respiratory: No cough Cardiovascular: No chest pain, No palpitations Abdomen: No pain, No nausea, No vomiting, No diarrhea, No constipation Musculoskeletal: + joint pain (L shoulder) Neurologic: + numbness/tingling (L hand) Heme: No abnormal bleeding/bruising Skin: No rash (Patience Perkins PA-C) Medications Current Inpatient Medications Medications (Trade) Dose Ordered Sig/David Route Start Time Stop Time Status Last Admin Dose Admin Aspirin (Ecotrin Tab) 81 mg QAM PO 02/10/17 09:00 03/12/17 08:59 02/10/17 08:58 81 MG Levetiracetam (Keppra Tab) 1,000 mg BID PO 02/09/17 21:00 03/11/17 20:59 02/10/17 08:56 1,000 MG Cholecalciferol (Vitamin D Tab) 2,000 inter.unit QAM PO 02/10/17 09:00 03/12/17 08:59 02/10/17 08:57 2,000 INTER.UNIT Cyanocobalamin (Vitamin B-12 Tab) 1,000 mcg QAM PO 02/10/17 09:00 03/12/17 08:59 02/10/17 08:57 1,000 MCG Miscellaneous Information (Order Awaiting Action) 1 ea QS PO 02/09/17 19:00 03/11/17 18:59 Folic Acid (Folvite Tab) 1 mg QAM PO 02/10/17 09:00 03/12/17 08:59 02/10/17 08:58 1 MG Diphenhydramine HCl (Benadryl Cap) 25 mg Q8 PRN PO 02/09/17 16:15 03/11/17 16:14 Zolpidem Tartrate (Ambien Tab) 5 mg HSZ PRN PO 02/09/17 16:15 03/11/17 16:14 02/10/17 00:07 5 MG Metoclopramide HCl (Reglan Inj) 10 mg Q6H PRN IV 02/09/17 16:15 03/11/17 16:14 Ondansetron HCl (Zofran Inj) 4 mg Q6H PRN IV 02/09/17 16:15 03/11/17 16:14 Pantoprazole Sodium (Protonix Tab) 40 mg QAM PO 02/10/17 09:00 03/12/17 08:59 02/10/17 08:57 40 MG Oxycodone HCl (Roxicodone Immediate Rel Tab) `1-2 TABS FOR PAIN `1 TAB... Q4H PRN PO 02/09/17 16:15 02/23/17 16:14 02/10/17 12:26 5 MG Oxycodone HCl (Oxycontin Tab) 10 mg Q12 PO 02/09/17 21:00 02/23/17 20:59 02/10/17 09:04 10 MG Acetaminophen (Tylenol Tab) 1,000 mg Q8H PO 02/09/17 22:00 03/11/17 21:59 02/10/17 13:47 1,000 MG Morphine Sulfate (MoRPHine SULFATE INJ) 2 mg Q2H PRN IV 02/09/17 16:15 02/23/17 16:14 Naloxone HCl (Narcan Inj) 0.1 mg Q2M PRN IV 02/09/17 16:15 03/11/17 16:14 Magnesium Hydroxide (Milk Of Magnesia Susp) 30 ml Q6H PRN PO 02/09/17 16:15 03/11/17 16:14 Bisacodyl (Dulcolax Supp) 10 mg DAILY PRN MO 02/09/17 16:15 03/11/17 16:14 Sodium Biphosphate/ Sodium Phosphate (Fleet Enema) 132 ml DAILY PRN MO 02/09/17 16:15 03/11/17 16:14 Docusate Sodium (coLACE CAP) 100 mg BID PO 02/09/17 21:00 03/11/17 20:59 02/10/17 08:57 100 MG Multivitamins (Multivitamin Tab) 1 tab DAILY PO 02/10/17 09:00 03/12/17 08:59 02/10/17 08:57 1 TAB Insulin Aspart (novoLOG ASPART) SLIDING SCALE G... ACHS SC 02/09/17 21:00 03/11/17 20:59 02/10/17 12:50 5 UNITS Morphine Sulfate (MoRPHine SULFATE INJ) 4 mg Q2H PRN IV 02/09/17 19:00 02/23/17 18:59 Hydralazine HCl (HydrALAZINE INJ) 10 mg Q6 PRN IV. 02/09/17 19:00 03/11/17 18:59 Valsartan (Diovan Tab) 160 mg QPM PO 02/10/17 21:00 03/12/17 20:59 (Patience Perkins PA-C) Objective Vital Signs Date Time Temp Pulse Resp B/P (MAP) Pulse Ox O2 Delivery O2 Flow Rate FiO2 02/10/17 15:33 37.0 89 16 117/66 (83) 98 Room Air 02/10/17 15:20 Room Air 02/10/17 11:20 36.7 93 18 124/78 (93) 99 Room Air 02/10/17 08:42 97 Room Air 02/10/17 07:41 36.5 90 18 130/58 (82) 97 Room Air 02/10/17 07:25 Room Air 02/10/17 03:08 36.7 93 16 129/72 (91) 96 Room Air 02/10/17 00:10 Room Air 02/09/17 23:01 36.5 97 17 160/73 (102) 98 Room Air 02/09/17 20:02 36.3 84 18 157/84 (108) 100 Room Air 02/09/17 19:11 36.3 65 18 155/76 (102) 98 Room Air 02/09/17 18:25 100 Nasal Cannula 2.0 (Patience Perkins PA-C) Physical Exam General Appearance: WD/WN, no apparent distress Eyes: sclerae normal ENT: hearing grossly normal Neck: supple, no JVD, trachea midline Respiratory/Chest: lungs clear, normal breath sounds, no respiratory distress, no accessory muscle use Cardiovascular: regular rate, rhythm, no gallop, no murmur Abdomen: normal bowel sounds, non tender, soft Extremities: no pedal edema, no calf tenderness Neurologic/Psychiatric: alert, oriented x 3, + motor weakness (reduced flexion of fingers but improving) Skin: normal color, warm/dry (Patience Perkins, ROSALINDAC) Laboratory Results Last 24 Hours Test 02/09/17 20:45 02/10/17 05:33 02/10/17 07:54 02/10/17 11:47 Bedside Glucose 123 mg/dl 142 mg/dl 130 mg/dl White Blood Count 13.21 K/uL Red Blood Count 3.33 M/uL Hemoglobin 9.8 g/dL Hematocrit 29.6 % Mean Corpuscular Volume 88.9 fL Mean Corpuscular Hemoglobin 29.4 pg Mean Corpuscular Hemoglobin Concent 33.1 g/dl RDW Standard Deviation 43.2 fL RDW Coefficient of Variation 13.2 % Platelet Count 215 K/uL Mean Platelet Volume 10.0 fL Sodium Level 135 mmol/L Potassium Level 4.3 mmol/L Chloride Level 103 mmol/L Carbon Dioxide Level 25 mmol/L Anion Gap 7.0 mmol/L Blood Urea Nitrogen 20 mg/dl Creatinine 1.23 mg/dl Est Creatinine Clear Calc Drug Dose 59.6 ml/min Estimated GFR () 67.6 Estimated GFR (Non- 58.3 BUN/Creatinine Ratio 16.2 Random Glucose 138 mg/dl Calcium Level 7.9 mg/dl Test 02/10/17 17:20 Bedside Glucose 148 mg/dl (Patience Perkins, SHYLA-C) Assessment and Plan This is a 71-year-old male with PMHx of prostate cancer s/p surgical resection and XRT in 1998, incontinence, seizure disorder, sleep apnea, carpal tunnel syndrome, DM II, rheumatoid arthritis, lumbar spine DJD, sciatica, nephrolithiasis who presents for an elective left reverse total shoulder arthroplasty by Dr. Hardwick on 02/09/17. S/P Total Reverse L Shoulder Arthroplasty - Pain management, bowel regimen, DVT with ASA 81 mg daily per the primary team - PT/OT Urinary Retention: IMPROVING - Continue to monitor - can bladder scan and straight cath PRN Sciatica/Lumbar DJD/Microdiscectomy (10 Years Ago): STABLE - Has seen Dr. Tovar as an outpatient, previously received injections into the lumbar spine for pain relief but it has been more than 6 months since that point. He plans to make an appointment after this hospitalization and after healing of shoulder DM type II: A1c 5.9 - Cover with SSI and can continue Metformin at D/C Hypertension - Valsartan 160 mg daily and Hydralazine PRN Seizure Disorder - Keppra 1000 mg po BID - Follows with Dr. Bansal as an outpatient Insomnia - Zolpidem 5 mg PRN DVT prophylaxis: DMITRIY/SCDs CODE STATUS: FULL RESUSCITATION Disposition: From home, lives with , anticipate outpatient PT and OT and D/ C tomorrow by primary Thank you for allowing us to participate in the care of Mr. Musa, please do not hesitate to call with any questions or concerns. (Patience Perkins, [place]) Reviewed: Pt Seen/Exam by Me (Kyra Bravo MD) History Physician Able Seaman Supervision Note: I interviewed and examined the patient. Discussed with SHYLA Perkins and agree with findings and plan as documented in the note. Any exceptions or clarifications are listed here: Pt still with weakness and numbness in left thumb-3rd or 4th fingers. Otherwise has a sore throat from intubation, no CP or SOB Vitals Reviewed RRR no mgr CTAB no wcr Ext no edema, no calf tenderness 71 yo male with left reverse TSA, also with left thumb and index finger weakness , numbness in 3rd and maybe 4th digit, possible residual nerve block vs traction neuropraxia as per Ortho note -observe for return of nerve function left hand -pain control -continue home meds, can restart metformin tomorrow Documented By: Kyra Bravo (Kyra Bravo MD)
[2017-02-10] MEDS ORDERED: COUGH DROP (SUGAR FREE) LOZ 24 LOZ/1 BOX ONE (21:05)
[2017-02-10] MEDS ORDERED: NURSING DECISION MEDICATION ORDER SCH (21:15)
[2017-02-10 23:05] VITALS: BP 139/70; PULSE 98; TEMP 36.8; O2SAT 96
[2017-02-10] MEDS ORDERED: COUGH DROP (SUGAR FREE) LOZ 24 LOZ/1 BOX PO PRN (23:15)
[2017-02-11] MEDS: ZOLPIDEM TARTRATE 5 MG TAB PO PRN (01:26)
[2017-02-11] MEDS: ACETAMINOPHEN 500 MG TAB PO SCH (05:25)
[2017-02-11 06:13] LABS: HEMATOCRIT 28.8 % (42-52); MEAN CELL VOLUME 89.2 fL (80-100); MEAN CORPUSCULAR HEMOGLOBIN 29.4 pg (25-34); MEAN PLATELET VOLUME 10.3 fL (7.4-10.4); PLATELET COUNT 229 K/uL (130-400); RED BLOOD COUNT 3.23 M/uL (4.7-6.1); WHITE BLOOD COUNT 13.42 K/uL (4.8-10.8)
[2017-02-11 06:34] VITALS: BP 134/68; PULSE 90; TEMP 36.7; O2SAT 98
[2017-02-11 06:47] LABS: BUN/CREATININE RATIO 21.2 (10-20); CALCIUM 8.7 mg/dl (8.5-10.1); CREATININE 1.03 mg/dl (0.60-1.40); POTASSIUM 3.9 mmol/L (3.5-5.1)
[2017-02-11] MEDS: OXYCODONE HCL IR 5 MG TAB (IMMEDIATE RELEASE) PO PRN (07:39)
[2017-02-11] MEDS: OXYCODONE HCL 10 MG TABCR (OXYCONTIN) PO SCH (07:39)
[2017-02-11] MEDS: PANTOprazole SOD 40 MG TAB PO SCH (07:40)
[2017-02-11] MEDS: MULTIVITAMIN TAB PO SCH (07:40)
[2017-02-11] MEDS: ASPIRIN 81 MG ECTAB PO SCH (07:41)
[2017-02-11] MEDS: DOCUSATE SODIUM 100 MG CAP PO SCH (07:41)
[2017-02-11] MEDS: CYANOCOBALAMIN 500 MCG TAB (VIT B-12) PO SCH (07:41)
[2017-02-11] MEDS: CHOLECALCIFEROL 1000 INTER.UNIT TAB PO SCH (07:41)
[2017-02-11] MEDS: LEVETIRACETAM 500 MG TAB PO SCH (07:42)
[2017-02-11] MEDS: INSULIN ASPART 100 UNITS/ML 3 ML PEN SC SCH ×2 (07:47→12:52)
--- NOTE | 2017-02-11 10:04 | Orthopedic Progress Note ---
Orthopedic Progress Note Date of Service Feb 11, 2017. Subjective Post OP Day: 2 Reports: feeling well, pain controlled w PO medications, Denies: complaints, chest pain, SOB, nausea / vomiting, light headedness, calf pain Objective calves soft nontender, N/V intact, capillary refill less than 2 sec., dressing C /D/I, A&O x3, hemovac drainage (25 cc today) Left hand fingers are mobile. NV intact. LUE in sling. Date Time Temp Pulse Resp B/P (MAP) Pulse Ox O2 Delivery O2 Flow Rate FiO2 02/11/17 06:34 36.7 90 16 134/68 (90) 98 Room Air 02/10/17 23:38 Room Air 02/10/17 23:05 36.8 98 18 139/70 (93) 96 Room Air 02/10/17 15:33 37.0 89 16 117/66 (83) 98 Room Air 02/10/17 15:20 Room Air 02/10/17 11:20 36.7 93 18 124/78 (93) 99 Room Air Laboratory Results 24 Hours: Test 02/11/17 05:21 Hematocrit 28.8 % Hemoglobin 9.5 g/dL Assessment & Plan Assessment: POD #2, LEFT REVERSED TSA, possible traction neuropraxia vs residual effects of nerve block--NV intact today Plan: LIMITED PT/ OT, NO FORMAL PT JUST HEP,observe neuro status. DVT PROPH- ASA D/C PLANNING- HOME today PER MEDICINE Inhouse Planning Pain Management: Oxycontin, Morphine, PO Tylenol, Oxy IR DVT Prophylaxis: TEDs, SCDs, ASA Discharge Planning Discharge Planning: home Pain Management: PO Tylenol, Oxy IR DVT Prophylaxis: ASA
[2017-02-11] MEDS ORDERED: ACET-24 PO (10:05)
[2017-02-11] MEDS ORDERED: RXC5 PO (10:05)
[2017-02-11 12:19] VITALS: BP 134/68; PULSE 90; TEMP 36.7; O2SAT 98
== END 2017-02-11 13:20 | disposition home or self-care (01) | DRG 483 ==
LOC: C.ACU 10:13 → C.3E 10:45 → ENRESERV 16:36
PROVIDERS: ADMIT Orthopaedic Surgery Sports Medicine; ATTEND Orthopaedic Surgery Sports Medicine
PROC: 0RRK0JZ Replacement of Left Shoulder Joint with Synthetic Substitute, Open Approach (ICD-10-PCS; principal; 2017-02-09 12:15)
DX: M19.012 Primary osteoarthritis, left shoulder (principal); I10 Essential (primary) hypertension; G47.30 Sleep apnea, unspecified; E11.9 Type 2 diabetes mellitus without complications; Z85.46 Personal history of malignant neoplasm of prostate; Z79.82 Long term (current) use of aspirin

== ENCOUNTER → 2017-02-14 | Outpatient (CLI) | payer OTHER, MEDICARE ==
[~2017-02-14] MED LIST changes: +ACET-24 PO; -ACETAMINOPHEN 500 MG TAB PO SCH; -ATROPINE SULFATE 0.1 MG/ML 5ML SYR IV PRN; -BUPIVACAINE/EPINEPHRINE 0.5% MPF 1:200,000 10 ML VIAL ONE; -CEFAZOLIN 2000MG IV PUSH 10 ML IV SCH; -CeleBREX 200 MG CAP PO SCH; -EpHEDrine SULFATE INJ 50 MG/ML AMP IV PRN; -FAMOTIDINE 20 MG TAB PO SCH; -FENTANYL CITRATE INJ 50 MCG/1 ML 2 ML VIAL IV PRN; -GABAPENTIN 300 MG CAP PO SCH; -HYDR-5688 PO; -HYDROmorphone INJ 1 MG/ML SYR IV PRN; -LACTATED RINGER'S 1000ML 1,000 ML IV SCH; -METOCLOPRAMIDE HCL 10 MG TAB PO SCH; -ONDANSETRON INJ 2 MG/ML 2 ML VIAL IV PRN; -ROPIVACAINE 0.5% 5 MG/ML 30 ML VIAL ONE; +RXC5 PO; -TRAM-10 PO
[2017-02-14 13:12] LABS: BASO % 0.2 %; BASO ABS # 0.02 K/uL (0-0.2); EOS % 1.1 %; HEMATOCRIT 25.5 % (42-52); IG% 0.4 %; LYMPH % 13.1 %; LYMPH ABS # 1.24 K/uL (1.2-3.4); MEAN CELL VOLUME 89.2 fL (80-100); MEAN CORPUSCULAR HEMOGLOBIN 29.7 pg (25-34); MEAN CORPUSCULAR HGB CONC 33.3 g/dl (32-36); MEAN PLATELET VOLUME 10.2 fL (7.4-10.4); MONO % 9.2 %; PLATELET COUNT 270 K/uL (130-400); RED BLOOD COUNT 2.86 M/uL (4.7-6.1); WHITE BLOOD COUNT 9.46 K/uL (4.8-10.8)
[2017-02-14 13:44] LABS: COMPLETE YES
== END | disposition home or self-care (01) ==
LOC: C.LAB 12:02
PROVIDERS: ATTEND Physician Assistant
DX: M19.012 Primary osteoarthritis, left shoulder (principal)

== ENCOUNTER → 2017-02-21 | Outpatient (CLI) | payer OTHER, MEDICARE ==
[2017-02-21 10:15] LABS: BASO % 0.3 %; BASO ABS # 0.03 K/uL (0-0.2); COMPLETE YES; EOS % 2.5 %; HEMATOCRIT 27.7 % (42-52); IG% 0.4 %; LYMPH % 15.6 %; LYMPH ABS # 1.56 K/uL (1.2-3.4); MEAN CELL VOLUME 90.2 fL (80-100); MEAN CORPUSCULAR HEMOGLOBIN 29.3 pg (25-34); MEAN CORPUSCULAR HGB CONC 32.5 g/dl (32-36); MEAN PLATELET VOLUME 9.5 fL (7.4-10.4); MONO % 7.5 %; NEUT % 73.7 %; PLATELET COUNT 613 K/uL (130-400); RED BLOOD COUNT 3.07 M/uL (4.7-6.1); WHITE BLOOD COUNT 10.02 K/uL (4.8-10.8)
[2017-02-21 10:25] LABS: PARTIAL THROMBOPLASTIN RATIO 1.1; PROTHROMBIN TIME (PATIENT) 11.1 SECONDS (9.0-12.0)
== END | disposition home or self-care (01) ==
LOC: C.LAB 09:16
PROVIDERS: ATTEND Orthopaedic Surgery Sports Medicine
DX: Z98.890 Other specified postprocedural states (principal)

== ENCOUNTER 2019-10-16 08:35 | Inpatient (IN) ==
--- NOTE | 2019-10-01 12:31 | Anesthesiology Consultation ---
Date of Service October 01, 2019 Assessment & Plan (1) Encounter for pre-operative examination: COVID Status: As of 09/30 assessment, patient denies travel to endemic area, known exposure/sick contacts, or symptoms of COVID19. Patient instructed to follow strict social distancing guidelines, wear a mask in public and avoid travel for 14 days prior to surgery. Preoperative COVID19 testing to be completed prior to surgery. Patient made aware to self-isolate as much as possible between COVID testing and surgery. Chart Review Chart Review: Acceptable Risk for Surgery and Patient seen in Pre Admission Testing Teaching & Discussion Instructed NPO after midnight before surgery, except medications with 15 cc of water. Medication instructions provided according to the PAT guidelines. History Surgery Operation Date: 10/16/19 07:45 Proposed Procedures p L2-S1 Decompression, T12-S1 Fusion, Spinal Cord Monitoring - Cricket Tovar, Height/Weight Height: 5 ft 11 in Weight: 71.8 kg Allergies Allergy/AdvReac Type Severity Reaction Status Date / Time No Known Allergies Allergy Verified 09/25/19 11:42 Medications Home Medications Medication Instructions Recorded Confirmed Last Taken ascorbic acid (vitamin C) [Vitamin 1,000 mg PO QAM 09/25/19 09/25/19 Unknown C] cholecalciferol (vitamin D3) 25 mcg PO QAM 09/25/19 09/25/19 Unknown [Vitamin D3] cyanocobalamin (vitamin B-12) 1,000 mcg PO QAM 09/25/19 09/25/19 Unknown docusate sodium [Stool Softener] 100 mg PO BID 09/25/19 09/25/19 Unknown ferrous sulfate [iron] 325 mg PO BID 09/25/19 09/25/19 Unknown folic acid 1 mg PO QAM 09/25/19 09/25/19 Unknown gabapentin 600 mg PO BID 09/25/19 09/25/19 Unknown irbesartan 300 mg PO QAM 09/25/19 09/25/19 Unknown levetiracetam [Keppra] 1,000 mg PO BID 09/25/19 09/25/19 Unknown metformin 1,000 mg PO BID 09/25/19 09/25/19 Unknown multivitamin 1 tab PO QAM 09/25/19 09/25/19 Unknown oxybutynin chloride 5 mg PO BID 09/25/19 09/25/19 Unknown tramadol 50 mg PO Q6H PRN 09/25/19 09/25/19 Unknown vitamins A,C,T-rejk-fljrke 1 tab PO BID 09/25/19 09/25/19 Unknown [PreserVision AREDS] Past Medical History Medical History Arthritis Cancer PROSTATE, s/p total prostatectomy 20 yrs ago Chronic back pain Deviated septum Diabetes mellitus, type 2 High blood pressure Kidney stones Seizure 1 SEIZURE LONG TIME AGO ON MEDS SINCE-NO ISSUES SINCE Exercise / Class Metabolic Activity II 4-5 Yardwork/Stairs/Walk up hill (Limited by back pain but denies any chest pain or SOB with 1 FOS) Past Family History Family History Father Hypertension Grandmother Diabetes PATERNAL Sister Family hx of colon cancer Past Surgical History Surgical History H/O shoulder surgery LEFT History of cardiac cath 2008 NO STENTS NEEDED, FALSE + STRESS TEST History of colonoscopy History of prostate surgery History of prostatectomy 20 YRS AGO History of total knee replacement LEFT Hx of hernia repair Previous back surgery MINI LAMINECTOMY Past Anesthesia History No Hx of Anesthesia Complications and No Family Hx of Anesthesia Complications History of PONV No Hx of PONV and No Hx of Motion Sickness Social History Smoking Status: Former smoker Do You Dip or Chew Tobacco: No Smoking End Date: QUIT 1964 Hx Alcohol Use: No Hx Substance Use: No Review of Systems Pt denies any recent chest pain, shortness of breath, palpitations, cough, fever or URI. Physical Exam Vital Signs BP: 142/75 P: 58bpm SPO2: 98% RA T: 97.7 F R: 12 ENMT Mouth: + dentures (full upper) and + small oral opening; no chipped teeth and no loose teeth Thyromental Distance: > or= 3.5 Finger Breadths (3.5) Mallampati Class: II Neck normal visual inspection; neck extension not limited Respiratory normal respiratory effort Auscultation: lungs clear to auscultation bilaterally Cardiovascular Rate/Rhythm: regular rate and regular rhythm Heart Sounds: no murmur Extremities: no edema Testing Laboratory Results 10/01/19 12:20 10/01/19 12:20 PT 11.5 Seconds (9.0-12.0) 10/01/19 12:20 INR 1.1 (0.9-1.1) 10/01/19 12:20 APTT 31.6 Seconds (21.0-31.0) H 10/01/19 12:20 Urine Color Yellow 10/01/19 12:20 Urine Appearance Clear (Clear) 10/01/19 12:20 Urine pH 7.0 (4.5-7.5) 10/01/19 12:20 Ur Specific [place] 1.017 (1.000-1.030) 10/01/19 12:20 Urine Protein Negative (Negative) 10/01/19 12:20 Urine Glucose (UA) Negative (Negative) 10/01/19 12:20 Urine Ketones Negative (Negative) 10/01/19 12:20 Urine Nitrite Negative (Negative) 10/01/19 12:20 Ur Leukocyte Esterase Negative (Negative) 10/01/19 12:20 Blood Type A Positive 10/01/19 12:20 Antibody Screen NEGATIVE 10/01/19 12:20 Electrocardiogram Date: 10/01/19 Findings: + SB @ (59bpm) Chest X-Ray Date: 10/01/19 Findings: + NAD
--- NOTE | 2019-10-01 12:33 | PAT Medication Instructions ---
Medication Instructions Date of Service October 01, 2019 Home Medications ascorbic acid (vitamin C) 1,000 mg PO QAM cholecalciferol (vitamin D3) 25 mcg PO QAM cyanocobalamin (vitamin B-12) 1,000 mcg PO QAM docusate sodium [Stool Softener] 100 mg PO BID ferrous sulfate [iron] 325 mg PO BID folic acid 1 mg PO QAM gabapentin 600 mg PO BID irbesartan 300 mg PO QAM levetiracetam [Keppra] 1,000 mg PO BID metformin 1,000 mg PO BID multivitamin 1 tab PO QAM oxybutynin chloride 5 mg PO BID tramadol 50 mg PO Q6H PRN vitamins A,C,E-qzux-mtyfac [PreserVision AREDS] 1 tab PO BID STOP taking 2 weeks before surgery If surgery is within 2 weeks, stop taking as soon as possible. vitamins A,C,W-vbyj-vwzkox [PreserVision AREDS] 1 tab PO BID DO NOT take the morning of surgery ascorbic acid (vitamin C) 1,000 mg PO QAM cholecalciferol (vitamin D3) 25 mcg PO QAM cyanocobalamin (vitamin B-12) 1,000 mcg PO QAM docusate sodium [Stool Softener] 100 mg PO BID ferrous sulfate [iron] 325 mg PO BID folic acid 1 mg PO QAM irbesartan 300 mg PO QAM metformin 1,000 mg PO BID multivitamin 1 tab PO QAM oxybutynin chloride 5 mg PO BID Take morning of surgery With a small sip of water, OTHERWISE NOTHING TO EAT OR DRINK AFTER MIDNIGHT: gabapentin 600 mg PO BID levetiracetam [Keppra] 1,000 mg PO BID tramadol 50 mg PO Q6H PRN (if needed, may be taken up to four hours before surgery) Take evening before surgery docusate sodium [Stool Softener] 100 mg PO BID ferrous sulfate [iron] 325 mg PO BID gabapentin 600 mg PO BID levetiracetam [Keppra] 1,000 mg PO BID metformin 1,000 mg PO BID oxybutynin chloride 5 mg PO BID tramadol 50 mg PO Q6H PRN (if needed) Other Notes If you have any questions please call us at [phone] or [phone] or [phone] or [phone]
[2019-10-01 13:03] LABS: Basophils # (auto) 0.03 K/uL (0-0.2); Basophils % (auto) 0.5 %; Eosinophils # (auto) 0.24 K/uL (0-0.5); Eosinophils % (auto) 3.6 %; Hematocrit (blood only) 36.9 % (42-52); Hemoglobin 11.8 g/dL (14.0-18.0); Immature Granulocytes # (auto) 0.02 K/uL (0.00-0.02); Immature Granulocytes % (auto) 0.3 %; Lymphocytes # (auto) 1.27 K/uL (1.2-3.4); Lymphocytes % (auto) 19.1 %; Mean Corpuscular Volume 90.7 fL (80-100); Mean Platelet Volume 11.3 fL (7.4-10.4); Monocytes # (auto) 0.55 K/uL (0.11-0.59); Monocytes % (auto) 8.3 %; Neutrophils # (auto) 4.55 K/uL (1.4-6.5); Neutrophils % (auto) 68.2 %; Platelet Count 216 K/uL (130-400); RDW Coefficient of Variation 13.5 % (11.5-14.5); RDW Standard Deviation 44.4 fL (36.4-46.3); Red Blood Count 4.07 M/uL (4.7-6.1); White Blood Count 6.66 K/uL (4.8-10.8)
[2019-10-01 13:14] LABS: INR 1.1 (0.9-1.1); Partial Thromboplastin Ratio 1.1; Partial Thromboplastin Time 31.6 Seconds (21.0-31.0); Prothrombin Time 11.5 Seconds (9.0-12.0)
[2019-10-01 13:16] LABS: Appearance Urine Clear (Clear); Bilirubin Urine Negative (Negative); Blood Urine Negative (Negative); Color Urine Yellow; Glucose Urine UA Negative (Negative); Ketones Urine Negative (Negative); Leukocyte Esterase Urine Negative (Negative); Nitrite Urine Negative (Negative); Protein Urine Negative (Negative); Specific Gravity Urine 1.017 (1.000-1.030); Urobilinogen Urine Negative (Negative)
--- NOTE | 2019-10-01 13:19 | XRay Report ---
XR chest Pre-admission PA/Lat HISTORY: Preop. COMPARISON: None. FINDINGS: The lungs are clear. Cardiac silhouette is normal in size. No pleural effusions. No pneumot horax. Left shoulder prosthesis. IMPRESSION: No acute process. ACT 112: Negative or not required by law. Electronically signed by: Matias Garg M.D. 10/01/2019 1:18 PM
--- NOTE | 2019-10-01 13:27 | Electrocardiogram Report ---
Test Reason : Blood Pressure : / mmHG Vent. Rate : 059 BPM Atrial Rate : 059 BPM P-R Int : 152 ms QRS Dur : 082 ms QT Int : 434 ms P-R-T Axes : 070 074 079 degrees QTc Int : 429 ms Sinus bradycardia Otherwise normal ECG When compared with ECG of 30-MAR-2018 14:56, No significant change was found Confirmed by Agustin Cole ([id number]) on 10/01/2019 1:26:25 PM Referred By: Cricket Tovar Confirmed By:Agustin Cole
[2019-10-01 15:57] LABS: BUN Creatinine Ratio 15.6 (10-20); Calcium 9.1 mg/dl (8.5-10.1); Creatinine Clr Calc Pharmacy 55.4 ml/min; Est GFR (African American) 70.3; Est GFR (Non-African American) 60.6; Potassium 4.2 mmol/L (3.5-5.1)
[~2019-10-16 08:35] MED LIST changes: -ACET-24 PO; +ACETAMINOPHEN 500 MG TAB PO SCH; -ASPI81TA28 PO; +CEFAZOLIN 1000MG 1,000 MG/7.5 ML SYR IV SCH; -CHOL2000 PO; -CYAN100020 PO; +CeleBREX 200 MG CAP PO SCH; -DVN/160 PO; -FOLATE PO; +GABAPENTIN 300 MG CAP PO SCH; -LEVE250T PO; +LR 15ML/HR IV SCH; -MELO7.5T5 PO; -METF-384 PO; -MULT-506 PO; -RXC5 PO; -SILD1TAB11 PO; -VSC/10 PO; -ZOLP5TAB6 PO
[2019-10-16] MEDS ORDERED: ONDANSETRON INJ 2 MG/ML 2 ML VIAL IV PRN ×2 (09:46→17:40)
[2019-10-16] MEDS ORDERED: ATROPINE SULFATE 0.1 MG/ML 10ML SYR IV PRN (09:46)
[2019-10-16] MEDS ORDERED: ePHEDrine sulfate 50 MG/ML AMP IV PRN (09:46)
--- NOTE | 2019-10-16 10:49 | History & Physical Bridge Note ---
Date of Service October 16, 2019 History & Physical Bridge Note I have examined the patient, reviewed the History & Physical and in the interval since the performance of the History & Physical I have noted the following changes of clinical significance: no changes noted
--- NOTE | 2019-10-16 10:50 | History & Physical Report ---
Date of Service October 16, 2019 Assessment & Plan (1) Neurogenic claudication due to lumbar spinal stenosis: L2-S1 decompression, T12-S1 fusion Present on Admission?: Yes History of Present Illness Chief Complaint: Back and bilateral leg pain Primary Care Provider: Ash Ackerman This is a 74-year-old male that has marked back and leg symptoms. After failing a course of nonoperative care is here for surgical intervention. Allergies Allergy/AdvReac Type Severity Reaction Status Date / Time No Known Allergies Allergy Verified 10/16/19 09:03 Home Medications Home Medications Medication Instructions Recorded Confirmed Type ascorbic acid (vitamin C) [Vitamin 1,000 mg PO QAM 09/25/19 10/16/19 History C] cholecalciferol (vitamin D3) 25 mcg PO QAM 09/25/19 10/16/19 History [Vitamin D3] cyanocobalamin (vitamin B-12) 1,000 mcg PO QAM 09/25/19 10/16/19 History docusate sodium [Stool Softener] 100 mg PO BID 09/25/19 10/16/19 History ferrous sulfate [iron] 325 mg PO BID 09/25/19 10/16/19 History folic acid 1 mg PO QAM 09/25/19 10/16/19 History gabapentin 600 mg PO BID 09/25/19 10/16/19 History irbesartan 300 mg PO QAM 09/25/19 10/16/19 History levetiracetam [Keppra] 1,000 mg PO BID 09/25/19 10/16/19 History metformin 1,000 mg PO BID 09/25/19 10/16/19 History multivitamin 1 tab PO QAM 09/25/19 10/16/19 History oxybutynin chloride 5 mg PO BID 09/25/19 10/16/19 History tramadol 50 mg PO Q6H PRN 09/25/19 10/16/19 History vitamins A,C,T-slog-syfhph 1 tab PO BID 09/25/19 10/16/19 History [PreserVision AREDS] Past Med/Surg History Medical History Arthritis Cancer PROSTATE, s/p total prostatectomy 20 yrs ago Chronic back pain Deviated septum Diabetes mellitus, type 2 High blood pressure Kidney stones Seizure 1 SEIZURE LONG TIME AGO ON MEDS SINCE-NO ISSUES SINCE Surgical History H/O shoulder surgery LEFT History of cardiac cath 2008 NO STENTS NEEDED, FALSE + STRESS TEST History of colonoscopy History of prostate surgery History of prostatectomy 20 YRS AGO History of total knee replacement LEFT Hx of hernia repair Previous back surgery MINI LAMINECTOMY Family History Father Hypertension Grandmother Diabetes PATERNAL Sister Family hx of colon cancer Social History (Updated 09/13/19 @ 09:04 by Jolynn Mullins) Preferred Language: Dive[place] Communication Ability: Effective Sap Abap Developer Required: No Beliefs That Will Affect Care: None marital status: Current Living Situation: Spouse current occupational status: retired Other Information That Helps Us Care for You: No Feels Safe at Home: Yes Safety Concerns: Feels Safe At This Time Smoking Status: Former smoker Do You Dip or Chew Tobacco: No ; Smoking End Date: QUIT 1964 ; Second Hand Exposure: Yes (FRIENDS/RESTAURANT IN PAST) ; Hx Alcohol Use: No Hx Substance Use: No Physical Exam Physical Exam: Patient is alert and oriented neurologically intact Heart regular rate and rhythm Lungs clear to auscultation Results & Data Vital Signs (Past 12 Hours) Vital Signs Temp Pulse Resp BP Pulse Ox 10/16/19 09:42 36.7 C 58 L 16 147/76 H 99
[2019-10-16] MEDS ORDERED: HYDROmorphone INJ 2 MG/ML SYR/VIAL ONE (11:17)
[2019-10-16] MEDS ORDERED: BUPIVACAINE/EPINEPHRINE 0.25% 1:200,000 30 ML VIAL ONE (11:17)
[2019-10-16] MEDS ORDERED: PROPOFOL IV EMULSION 10 MG/ML 20 ML VIAL IV ONE (11:17)
[2019-10-16] MEDS ORDERED: LIDOCAINE HCL 2% 2 ML VIAL/AMP(20MG/ML) INFIL ONE (11:17)
[2019-10-16] MEDS ORDERED: NEOSTIGMINE METHYLSULFATE 1 MG/ML 10ML VIAL ONE (11:17)
[2019-10-16] MEDS ORDERED: GLYCOPYRROLATE 0.2 MG/ML VIAL ONE (11:17)
[2019-10-16] MEDS ORDERED: ONDANSETRON INJ 2 MG/ML 2 ML VIAL ONE (11:17)
[2019-10-16] MEDS ORDERED: ROCURONIUM BROMIDE 10 MG/ML 5 ML VIAL IV ONE (11:17)
[2019-10-16] MEDS ORDERED: DEXAMETHASONE SOD INJ 4 MG/ML VIAL ONE (11:17)
[2019-10-16] MEDS ORDERED: BACITRACIN INJ 50,000 UNIT VIAL ONE (11:18)
[2019-10-16] MEDS ORDERED: ALBUMIN HUMAN 5% 12.5 GM/250 ML VIAL IV ONE (11:20)
[2019-10-16] MEDS ORDERED: FLOSEAL HEMOSTATIC MATRIX 10ML TOP ONE (12:51)
[2019-10-16] MEDS ORDERED: ePHEDrine sulfate 50 MG/ML AMP ONE (15:06)
--- NOTE | 2019-10-16 15:34 | Operative Report ---
Post Operative Report Pre & Post Diagnosis Operation Date: 10/16/19 10:05 Pre-Op Diagnosis: LUMBAR SPINAL STENOSIS WITH NEUROGENIC CLAUDICATION Post-Op Diagnosis: LUMBAR SPINAL STENOSIS WITH NEUROGENIC CLAUDICATION I identified the patient and participated in the time-out.: Yes Procedure Operation Date: 10/16/19 10:05 Actual Procedures #1 lumbar decompression with bilateral medial facetectomies and foraminotomies L2-3, L3-4, L4-5 L5-S1. #2 posterior spinal fusion T12-S1. #3 placement posterior segmental instrumentation T12 and S1. #4 interbody fusion L4-5 and L5-S1. #5 placement peek cage 8 x 26 mm at L4-5 and 11 x 26 mm at L5-S1. #6 placement of locally harvested morselized autograft in the posterior lateral gutters. #7 placement peek collagen sponge and master graft in the posterior lateral gutters and ostial amp and interbody space. Surgeon Cricket Tovar, DO Virtual Customer Assistant Mireya Cuevas Estimated Blood Loss 800 Findings See Below Patient has significant degenerative disease and scoliosis had over 800 cc an EBL during the procedure. This did add to the significant technical difficulty adding at least 30% enlarged operative time. Specimens None Indications This is a 74-year-old male who presents above-mentioned diagnosis after failing course of nonoperative care is here for surgical invention. Description of Procedure Patient was met with identified informed consent obtained. Patient was then taken to the operative suite underwent an patient placed in a prone position the Deshawn table on top of the Jamal frame. All bony prominences well-padded eyes inspected to ensure no external pressure placed upon them. This point the thoracolumbar spine was prepped and draped in normal sterile fashion. Sharp dissection with assistance of Bovie cautery was performed down to and exposing the lamina and transverse processes of T12 and the sacrum. Caudal cephalad fashion complete laminectomy of L5 L4 L3 and L2 was performed including bilateral medial facetectomies and foraminotomies addressing severe spinal stenosis. Pedicle screws were then placed in T12 L1-L2 L3-L4-L5 and S1 levels bilaterally with assistance of fluoroscopy and appropriately sized agustina contoured and placed. Believe a transforaminal approach on the right complete discectomy of L5-S1 was performed endplates curetted to subcortical bleeding bone and an 11 x 26 mm peek cage filled with osteo-bone graft tapped in position. Then proceeded L4-[address] of a transforaminal approach on the right complete discectomy performed endplates curetted to subcortical bleeding bone and an 8 mm peek cage filled with osteo-bone graft tapped position. The rods were then locked into final position bilaterally. A cross-link was locked into position. The transverse processes of T12 L1-L2 L3-L4-L5 and the sacral ala were then burred to subcortical bleeding bone. Infuse collagen sponge master graft local autograft placed in the posterior lateral gutters. 15 round SUMIT drain inserted. The incision was then closed with 1 Vicryl in the fascia 2-0 Vicryl subcutaneously and 4 Monocryl for final skin closure. Steri-Strip sterile dressings placed. Patient will continue PACU stable condition. Please note spinal cord monitoring was utilized that the procedure no changes noted. Lastly Mireya Cuevas was present at the entire procedure involved in patient positioning complex portions of the surgery and final skin closure. I attest to the content of the Intraoperative Record and any orders documented therein. Any exceptions are noted below.
--- NOTE | 2019-10-16 15:40 | Fluoroscopy Report ---
INTRAOPERATIVE RADIOGRAPHS CLINICAL HISTORY: T12-S1 spinal fusion. Fluoroscopy time: 43 seconds. FINDINGS: 4 spot fluoroscopic views of the thoracolumbar spine are presented. There has been discecto my at L4-L5 and L5-S1 with laminectomy and posterior fusion from T12-S1. Interpedicular screws are pr esent at all levels. The orthopedic hardware appears intact. IMPRESSION: Intraoperative images from T12-S1 spinal fusion as above. Electronically signed by: Noel Dotson M.D. 10/16/2019 3:39 PM
[2019-10-16] MEDS: fentaNYL citrate 100 MCG/2 ML VIAL IV PRN ×4 (16:17→16:32)
[2019-10-16 16:18] LABS: Hematocrit (blood only) 27.6 % (42-52); Hemoglobin 9.5 g/dL (14.0-18.0)
[2019-10-16] MEDS: HYDROmorphone INJ 1 MG/ML SYRINGE IV PRN ×4 (16:37→16:58)
--- NOTE | 2019-10-16 16:52 | Anesthesiology Progress Note ---
Date of Service October 16, 2019 Anesthesia Post Procedure Vital Signs Vital Signs: Temp Pulse Pulse Resp BP BP Pulse Ox 10/16/19 16:50 75 20 133/77 99 10/16/19 16:40 79 12 142/70 H 99 10/16/19 16:30 79 15 148/77 H 99 10/16/19 16:20 73 18 153/77 H 99 10/16/19 16:10 76 16 158/82 H 100 10/16/19 16:00 79 20 151/72 H 100 10/16/19 15:54 36.2 C L 79 14 144/76 H 100 10/16/19 09:42 36.7 C 58 L 16 147/76 H 99 Pain Intensity Back: Pain Intensity: 4 Transfer of Care Handoff Completed per policy Notes Mental Status: alert / awake / arousable and participated in evaluation Patient Amnestic to Procedure: Yes Nausea / Vomiting: adequately controlled Pain: adequately controlled Airway Patency, RR, SpO2: stable & adequate BP & HR: stable & adequate Hydration State: stable & adequate Anesthetic Complications: no major complications apparent and Pt Satisfied with anesthetic care
[2019-10-16] MEDS ORDERED: NALOXONE HCL 0.4 MG/1 ML VIAL/CARP IV PRN (17:40)
[2019-10-16] MEDS ORDERED: SOD PHOSPHATE/SOD BIPHOSPHATE ENEMA 132 ML BTL PR PRN (17:40)
[2019-10-16] MEDS ORDERED: HYDROmorphone INJ 0.5 MG/0.5 ML SYR IV PRN (17:40)
[2019-10-16] MEDS ORDERED: DO NOT ADMINISTER PNEUMOCOCCAL VACCINE PRN (17:40)
[2019-10-16] MEDS ORDERED: FAMOTIDINE 20 MG TAB PO PRN (17:40)
[2019-10-16] MEDS ORDERED: LORazepam 0.5 MG/1 ML VIAL IV PRN (17:40)
[2019-10-16] MEDS ORDERED: PROMETHAZINE HCL 12.5 MG in SODIUM CHLORIDE 0.9% 50 ML IV PRN (17:40)
[2019-10-16] MEDS ORDERED: HYDROmorphone INJ 1 MG/ML SYRINGE IV PRN (17:40)
[2019-10-16] MEDS ORDERED: LORazepam 0.5 MG TAB PO PRN (17:40)
[2019-10-16] MEDS ORDERED: METOCLOPRAMIDE HCL INJ 5 MG/ML 2 ML VIAL IV PRN (17:40)
[2019-10-16] MEDS ORDERED: ALUMINUM/MAGNESIUM SUSP 30 ML UDC PO PRN (17:40)
[2019-10-16] MEDS ORDERED: ACETAMINOPHEN 1,000 MG/100 ML VIAL IV PRN (17:40)
[2019-10-16] MEDS ORDERED: MAGNESIUM HYDROXIDE SUSP 30 ML UDC PO PRN (17:40)
[2019-10-16] MEDS ORDERED: DO NOT ADMINISTER FLU VACCINE PRN (17:40)
[2019-10-16] MEDS ORDERED: bisacodyL 10 MG SUPP PR PRN (17:40)
[2019-10-16] MEDS ORDERED: ONDANSETRON 4 MG OD TAB PO PRN (17:40)
[2019-10-16] MEDS ORDERED: PHARMACY GLYCEMIC MGMT CONSULT PRN (18:22)
[2019-10-16] MEDS ORDERED: GLUCOSE 40% GEL 15 GM TUBE PO PRN (18:30)
[2019-10-16] MEDS ORDERED: GLUCAGON FOR INJ 1 MG VIAL IM PRN (18:30)
[2019-10-16] MEDS ORDERED: GLUCOSE 10 TABS/TUBE PO PRN (18:30)
[2019-10-16] MEDS ORDERED: CARBOHYDRATES FOR HYPOGLYCEMIA PO PRN (18:30)
[2019-10-16] MEDS ORDERED: DEXTROSE 50% 50 ML SYRINGE IV PRN (18:30)
[2019-10-16] MEDS ORDERED: LANTUS PER UNIT CHARGE SQ ONE (18:30)
[2019-10-16] MEDS: OXYCODONE HCL IR 5 MG TAB (IMMEDIATE RELEASE) PO PRN (19:04)
[2019-10-16] MEDS: SODIUM CHLORIDE 0.9% 1000ML 1,000 ML IV SCH (19:05)
[2019-10-16] MEDS: CEFAZOLIN 2000MG 2,000 MG/15 ML SYR IV SCH (19:06)
[2019-10-16] MEDS: INSULIN ASPART 100 UNITS/ML 3 ML PEN SC SCH ×2 (19:10→21:11)
--- NOTE | 2019-10-16 19:54 | Hospitalist Consultation ---
Date of Consultation October 16, 2019 Assessment & Plan (1) Neurogenic claudication due to lumbar spinal stenosis: Patient is a very pleasant 74 year old gentleman consulted on for medical management, POD#0 lumbar decompression and Fusion T12-S1 surgery for lumbar spinal stenosis with neurogenic claudication. Neurogenic Claudication 2/2 Lumbar Spinal Stenosis -POD#0 Lumbar decompression and Spinal fusion T12-S1 with Dr. Tovar -Continue pain management per orthopedic surgery -Continue Gabapentin 600mg BID -Advance diet as tolerated -Nasal Cannula O2 PRN, >93% -Neurovascular checks q4h -PT Consulted -CBC, BMP in AM Diabetes Mellitus 2 -SSI -Lantus 12u QD -Hold Metformin while inpatient -Glycemic consult requested Seizure -Continue Keppra 1000mg qAM, 1500mg qHS Overactive Bladder -Continue Oxybutynin 5mg QD HTN -Continue Irbesartan 300mg daily Dispo: Med/Surg FEN: Full Liquids, NSS 100ml/hr DVT: SCDs Code: Full (2) Overactive bladder: (3) Diabetes mellitus, type 2: (4) Seizure: (5) High blood pressure: Supervising Physician Co-Signing Physician Notes Attending addendum: I have physically seen this patient, have supervised the medical residents activities, and agree with the H&P unless as otherwise noted. Assessment and Plan: Status post lumbar decompression and spinal fusion T12-S1- Seen postoperatively medically stable. Ongoing care and pain management per Dr. Tovar. Diabetes mellitus- Continue Lantus 12 units subcu daily. Hold metformin Placed on Accu-Cheks before meals and at bedtime with NovoLog coverage for scale Hypertension- Continue irbesartan 3 to milligrams p.o. daily Follow renal function Seizure disorder- Continue current dosing of Keppra 1000 mg p.o. every morning and 1500 mg p.o. nightly Overactive bladder- Continue oxybutynin 5 mg p.o. daily Remainder of orders and notations as noted. We will follow during hospital stay. History of Present Illness Reason for Consultation: Medical Management Attending Physician: Cricket Tovar, DO History of Present Illness Patient is a very pleasant 74 year old gentleman consulted on for medical management, POD#0 lumbar decompression and Fusion T12-S1 surgery for lumbar spinal stenosis with neurogenic claudication. Patient states that he had significantly worsened low back and R hip pain s/p a L knee replacement and that he had gone from taking a single dose of tramadol daily, up to 4x/day. His notes that the patients pain and symptoms drastically worsened within the past 6-8 weeks stating that he couldn't go more than being up and about for 15 minutes before having to lye down. Patient noted that his right leg "felt like a sponge." Currently patient states that his pain is a 5/10 and manageable, he had just taken an oxycodone a few minutes prior to exam. He He denies any nausea, vomiting, diarrhea, sob, chest pain, fevers, chills, weakness, headache, visual changes, abdominal pain. Allergies Allergy/AdvReac Type Severity Reaction Status Date / Time No Known Allergies Allergy Verified 10/16/19 09:03 Home Medications Home Medications Medication Instructions Recorded Confirmed Type ascorbic acid (vitamin C) [Vitamin 1,000 mg PO QAM 09/25/19 10/16/19 History C] cholecalciferol (vitamin D3) 25 mcg PO QAM 09/25/19 10/16/19 History [Vitamin D3] cyanocobalamin (vitamin B-12) 1,000 mcg PO QAM 09/25/19 10/16/19 History docusate sodium [Stool Softener] 100 mg PO BID 09/25/19 10/16/19 History ferrous sulfate [iron] 325 mg PO BID 09/25/19 10/16/19 History folic acid 1 mg PO QAM 09/25/19 10/16/19 History gabapentin 600 mg PO BID 09/25/19 10/16/19 History irbesartan 300 mg PO QAM 09/25/19 10/16/19 History levetiracetam [Keppra] 1,000 mg PO BID 09/25/19 10/16/19 History metformin 1,000 mg PO BID 09/25/19 10/16/19 History multivitamin 1 tab PO QAM 09/25/19 10/16/19 History oxybutynin chloride 5 mg PO BID 09/25/19 10/16/19 History tramadol 50 mg PO Q6H PRN 09/25/19 10/16/19 History vitamins A,C,K-oidx-kunwpo 1 tab PO BID 09/25/19 10/16/19 History [PreserVision AREDS] oxycodone 5 mg PO Q6H PRN #20 tab 10/17/19 Rx tramadol 50 mg PO Q6H PRN #20 tab 10/17/19 Rx Patient History Medical History Arthritis Cancer PROSTATE, s/p total prostatectomy 20 yrs ago Chronic back pain Deviated septum Diabetes mellitus, type 2 High blood pressure Kidney stones Seizure 1 SEIZURE LONG TIME AGO ON MEDS SINCE-NO ISSUES SINCE Surgical History H/O shoulder surgery LEFT History of cardiac cath 2008 NO STENTS NEEDED, FALSE + STRESS TEST History of colonoscopy History of prostate surgery History of prostatectomy 20 YRS AGO History of total knee replacement LEFT Hx of hernia repair Previous back surgery MINI LAMINECTOMY Family History Father Hypertension Grandmother Diabetes PATERNAL Sister Family hx of colon cancer Social History (Updated 09/13/19 @ 09:04 by Jolynn Mullins) Preferred Language: [place] Citizen Communication Ability: Effective 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 Beliefs That Will Affect Care: None marital status: Current Living Situation: Spouse current occupational status: retired Other Information That Helps Us Care for You: No Feels Safe at Home: Yes Safety Concerns: Feels Safe At This Time Smoking Status: Former smoker Do You Dip or Chew Tobacco: No ; Smoking End Date: QUIT 1964 ; Second Hand Exposure: Yes (FRIENDS/RESTAURANT IN PAST) ; Hx Alcohol Use: No Hx Substance Use: No Review of Systems Review of Systems: All systems reviewed & are unremarkable except as noted in Subjective Physical Exam Constitutional: well developed and well nourished; no acute distress Eyes: PERRL, conjunctivae normal, anicteric sclerae ENMT: external ear and nose normal, oropharynx normal Neck: trachea midline, no thyromegaly Respiratory: normal respiratory effort, lungs clear to auscultation Cardiovascular: RRR, no murmur, no edema Vessels: posterior tibial pulses present and dorsalis pedis pulses present Extremities: normal capillary refill; no calf tenderness Gastrointestinal (Abdomen): normal bowel sounds, soft, nontender, no hepatosplenomegaly Neurologic: PERRL, EOMI, accommodation nl, no face palsy, no dysarthria CN's II-XI intact bilaterally and awake Results & Data Results & Data ([facility]) Vital Signs (Past 12 Hours) Vital Signs Temp Pulse Pulse Resp BP BP Pulse Ox 10/16/19 18:51 36.4 C L 77 16 138/75 100 10/16/19 18:00 36.0 C L 78 14 139/72 100 10/16/19 17:40 36.5 C 75 13 146/70 H 100 10/16/19 17:20 74 12 154/69 H 98 10/16/19 17:10 36.4 C L 73 12 150/70 H 98 10/16/19 17:00 73 12 108/82 96 10/16/19 16:50 75 20 133/77 99 10/16/19 16:40 79 12 142/70 H 99 10/16/19 16:30 79 15 148/77 H 99 10/16/19 16:20 73 18 153/77 H 99 10/16/19 16:10 76 16 158/82 H 100 10/16/19 16:00 79 20 151/72 H 100 10/16/19 15:54 36.2 C L 79 14 144/76 H 100 10/16/19 09:42 36.7 C 58 L 16 147/76 H 99 PG Care Time/CCT Total # of Minutes Spent Total Time Spent with Patient: Total time spent is greater than 50% in coordination of care (as documented) at patient's floor/unit and/or counseling patient: Coding Level of Care Code 43007 Inpt Consult Level 3 Diagnoses Neurogenic claudication due to lumbar spinal stenosis M48.062 Overactive bladder N32.81 Diabetes mellitus, type 2 E11.9 Seizure R56.9 High blood pressure I10 Resident Activity Tracking Resident Involvement: Resident Care Provided Care Provided: Adult Hospital Medicine
[2019-10-16] MEDS ORDERED: NON-FORMULARY MEDICATION (Vitamins A,C,E-Zinc-Copper [Preservision Areds] 1 TAB) PO SCH (21:00)
[2019-10-16] MEDS ORDERED: levETIRAcetam 500 MG TAB PO SCH (21:00)
[2019-10-16] MEDS: OXYBUTYNIN CHLORIDE 5 MG TAB PO SCH (21:09)
[2019-10-16] MEDS: GABAPENTIN 300 MG CAP PO SCH (21:09)
[2019-10-16] MEDS: levETIRAcetam 500 MG TAB PO SCH (21:10)
[2019-10-16] MEDS: DOCUSATE SODIUM/SENNA 50/8.6MG TAB PO SCH (21:10)
[2019-10-16] MEDS: ACETAMINOPHEN 500 MG TAB PO PRN (21:15)
[2019-10-17] MEDS: INSULIN ASPART 100 UNITS/ML 3 ML PEN SC SCH ×6 (00:04→21:30)
[2019-10-17] MEDS: CEFAZOLIN 2000MG 2,000 MG/15 ML SYR IV SCH (02:59)
[2019-10-17] MEDS: OXYCODONE HCL IR 5 MG TAB (IMMEDIATE RELEASE) PO PRN ×4 (03:04→21:04)
[2019-10-17] MEDS: SODIUM CHLORIDE 0.9% 1000ML 1,000 ML IV SCH (05:24)
[2019-10-17] MEDS: POLYETHYLENE (MIRALAX) 17 GM PACK PO SCH ×4 (05:24→23:42)
[2019-10-17 06:23] LABS: Basophils # (auto) 0.01 K/uL (0-0.2); Basophils % (auto) 0.1 %; Eosinophils # (auto) 0.02 K/uL (0-0.5); Eosinophils % (auto) 0.2 %; Hematocrit (blood only) 24.1 % (42-52); Hemoglobin 8.1 g/dL (14.0-18.0); Immature Granulocytes # (auto) 0.03 K/uL (0.00-0.02); Immature Granulocytes % (auto) 0.3 %; Lymphocytes # (auto) 1.03 K/uL (1.2-3.4); Lymphocytes % (auto) 8.9 %; Mean Corpuscular Hemoglobin 29.6 pg (25-34); Mean Corpuscular Hgb Conc 33.6 g/dL (32-36); Mean Platelet Volume 10.8 fL (7.4-10.4); Monocytes # (auto) 0.82 K/uL (0.11-0.59); Monocytes % (auto) 7.1 %; Neutrophils # (auto) 9.62 K/uL (1.4-6.5); Neutrophils % (auto) 83.4 %; Platelet Count 176 K/uL (130-400); RDW Coefficient of Variation 13.9 % (11.5-14.5); RDW Standard Deviation 44.6 fL (36.4-46.3); Red Blood Count 2.74 M/uL (4.7-6.1); White Blood Count 11.53 K/uL (4.8-10.8)
[2019-10-17 06:58] LABS: BUN Creatinine Ratio 16.4 (10-20); Calcium 7.9 mg/dl (8.5-10.1); Creatinine Clr Calc Pharmacy 55.1 ml/min; Est GFR (African American) 70.3; Est GFR (Non-African American) 60.6
[2019-10-17] MEDS ORDERED: SODIUM CHLORIDE 0.9% 250 ML IV PRN (08:13)
--- NOTE | 2019-10-17 08:15 | Orthopedic Progress Note ---
Date of Service October 17, 2019 Assessment & Plan (1) Neurogenic claudication due to lumbar spinal stenosis: This time we will transfuse 2 units of blood. Will initiate physical therapy. Monitor his SUMIT output. Present on Admission?: Yes Admission and Anticipated Discharge Date Admission Date: October 16, 2019 Subjective Patient's back pain is controlled right leg pain markedly improved. Physical Exam Physical Exam: Patient is good strength testing. Results & Data ([facility]) Vital Signs (Past 12 Hours) Vital Signs Temp Pulse Resp BP Pulse Ox 10/17/19 07:23 36.4 C L 70 15 104/57 L 99 10/17/19 03:11 36.4 C L 67 15 114/64 100 10/16/19 23:00 36.4 C L 66 15 110/58 L 95 10/16/19 20:54 36.3 C L 75 16 122/58 L 98
--- NOTE | 2019-10-17 08:28 | Anesthesiology Progress Note ---
Date of Service October 17, 2019 Anesthesia Post Procedure Vital Signs Vital Signs: Temp Pulse Pulse Resp BP BP Pulse Ox 10/17/19 07:23 36.4 C L 70 15 104/57 L 99 10/17/19 03:11 36.4 C L 67 15 114/64 100 10/16/19 23:00 36.4 C L 66 15 110/58 L 95 10/16/19 20:54 36.3 C L 75 16 122/58 L 98 10/16/19 19:40 36.5 C 82 16 141/70 H 97 10/16/19 18:51 36.4 C L 77 16 138/75 100 10/16/19 18:00 36.0 C L 78 14 139/72 100 10/16/19 17:40 36.5 C 75 13 146/70 H 100 10/16/19 17:20 74 12 154/69 H 98 10/16/19 17:10 36.4 C L 73 12 150/70 H 98 10/16/19 17:00 73 12 108/82 96 10/16/19 16:50 75 20 133/77 99 10/16/19 16:40 79 12 142/70 H 99 10/16/19 16:30 79 15 148/77 H 99 10/16/19 16:20 73 18 153/77 H 99 10/16/19 16:10 76 16 158/82 H 100 10/16/19 16:00 79 20 151/72 H 100 10/16/19 15:54 36.2 C L 79 14 144/76 H 100 10/16/19 09:42 36.7 C 58 L 16 147/76 H 99 Pain Intensity Back: Pain Intensity: 2 Notes Mental Status: alert / awake / arousable Patient Amnestic to Procedure: Yes Nausea / Vomiting: adequately controlled Pain: adequately controlled Airway Patency, RR, SpO2: stable & adequate BP & HR: stable & adequate Hydration State: stable & adequate Anesthetic Complications: no major complications apparent and Pt Satisfied with anesthetic care
[2019-10-17] MEDS ORDERED: NovoLIN-N (NPH) PER UNIT CHARGE SQ SCH (09:00)
[2019-10-17] MEDS ORDERED: INSULIN GLARGINE SOLOSTAR 100 UNITS/ML 3 ML PEN SC SCH (09:00)
[2019-10-17] MEDS: GABAPENTIN 300 MG CAP PO SCH ×2 (09:03→21:00)
[2019-10-17] MEDS: CYANOCOBALAMIN 500 MCG TABLET (VITAMIN B-12) PO SCH (09:03)
[2019-10-17] MEDS: IRBESARTAN 150 MG TAB PO SCH (09:04)
[2019-10-17] MEDS: MULTIVITAMIN TAB PO SCH (09:04)
[2019-10-17] MEDS: OXYBUTYNIN CHLORIDE 5 MG TAB PO SCH ×2 (09:04→21:02)
[2019-10-17] MEDS: FERROUS SULFATE 325 MG TAB PO SCH ×2 (09:04→17:05)
[2019-10-17] MEDS: FOLIC ACID 1 MG TAB PO SCH (09:04)
[2019-10-17] MEDS: CHOLECALCIFEROL 1,000 UNITS 25 MCG TAB PO SCH (09:04)
[2019-10-17] MEDS: ASCORBIC ACID 500 MG TAB PO SCH (09:04)
[2019-10-17] MEDS: DEXAMETHASONE SOD PHOSPHATE 6 MG in SYRINGE 0 ML IV SCH (09:12)
[2019-10-17] MEDS: levETIRAcetam 500 MG TAB PO SCH ×2 (09:12→21:00)
[2019-10-17] MEDS: ACETAMINOPHEN 500 MG TAB PO PRN ×2 (11:14→22:13)
--- NOTE | 2019-10-17 15:28 | Pharmacy Report ---
Glycemic Control Consultation - Date of Service October 17, 2019 - Scope Scope: Glycemic Pharmacist consulted for glycemic control and to write orders per [facility], located within [facility] inpatient glycemic control protocol. - Objective Weight: 71.4 kg Acctejinderecks BSG (last 24hrs): 10/16/19 10/16/19 10/16/19 16:12 18:13 20:51 Glucose POC Glucose 182 H 200 H 172 H 10/16/19 10/17/19 10/17/19 23:59 04:00 05:58 Glucose 120 H POC Glucose 152 H 126 H 10/17/19 10/17/19 08:23 12:11 Glucose POC Glucose 109 H 150 H Laboratory Data (last 24hrs): 10/17/19 05:58 Potassium 4.0 Carbon Dioxide 26 Anion Gap 7.0 Creatinine 1.17 Est Cr Clr Drug Dosing 55.1 - Recent Pertinent Medications Outpatient Anti-diabetic Regimen: * metformin * A1c = 5.9 % 08/19/19 - Assessment & Plan Assessment & Plan: ASSESSMENT: * 74 year old now s/p lumbar decompression/fusion, POD 1. Type 2 diabetic managed on metformin only at home * Pharmacy consulted for glycemic management * Received 19 units of insulin yesterday, of which 15 were basal to help cover with steroids * Fasting BSG this AM 120 mg/dL - steroids ordered again this AM / will utilize NPH to cover hyperglycemic effects - used a slightly lower than traditional dose of NPH this AM, as Lantus is still on board * Tighten CR this AM PLAN FOR INPATIENT GLYCEMIC CONTROL: * Holding outpatient oral diabetes medications * Basal insulin * NPH 10 units x 1 * Bolus insulin * NovoLog per scale ACHS or Q6hrs while NPO * Goal Range: Low 110 mg/dL - High 140 mg/dL * Correction Factor: 35 mg/dL/unit * Nutritional / Prandial insulin per carb ratio of 1 unit per 12 grams CHO consumed * Please note that the plan above was derived based on current level of insulin resistance and hospital stress. These recommendations are appropriate for inpatient admission only. Plan of care upon discharge will need to be reassessed to avoid potential outpatient hypo/hyperglycemia. Thank you.
--- NOTE | 2019-10-17 17:53 | Hospitalist Progress Note ---
Date of Service October 17, 2019 Assessment & Plan (1) Neurogenic claudication due to lumbar spinal stenosis: This patient is a 74-year-old male consulted on for medical management, POD#1 lumbar decompression and Fusion T12-S1 surgery for lumbar spinal stenosis with neurogenic claudication. Neurogenic Claudication 2/2 Lumbar Spinal Stenosis-he is doing very well postoperatively. Hemoglobin did drop to 8.1 he had some lightheadedness overnight. He was transfused 2 units PRBCs today and is feeling well. Has some soreness in the back. -Continue pain management per orthopedic surgery-dexamethasone 6 mg IV daily, IV Dilaudid as needed, acetaminophen as needed, and tramadol PRN. -Continue Gabapentin 600mg BID -Follow CBC again in the morning for acute blood loss anemia -PT/OT consultations Diabetes Mellitus 2-very well controlled, last hemoglobin A1c was 5.9% in 08/2019. He is not having hypoglycemia here despite being on dexamethasone Pharmacy glycemic control consult is in place -Continue basal and bolus insulin as per pharmacy -Hold Metformin while inpatient Seizure disorder-with a history of partial complex seizures since 2007, none since then and doing very well. Follows with neurology Dr. Perez of [facility] -Continue Keppra 1000mg qAM, 1500mg qHS Overactive Bladder -Continue Oxybutynin 5mg twice daily HTN-blood pressures are well controlled -Continue Irbesartan 300mg daily Dispo: Continued stay med/Surg DVT: SCDs Code: Full Hospitalist service will sign off at this time. Please feel free to reconsult or call with any new or acute issues. Thank you. (2) Overactive bladder: (3) Diabetes mellitus, type 2: (4) Seizure: (5) High blood pressure: (6) Acute blood loss anemia: Admission and Anticipated Discharge Date Admission Date: October 16, 2019 Subjective Patient reports he had some lightheadedness with standing last night, but none further today. He denies chest pains or shortness of breath. He received 2 units of packed red blood cells today as ordered by orthopedic surgery. He denies any nausea or vomiting, no abdominal pain. He has not had a bowel movement yet but is passing flatus. He is tolerating regular diet. He is pleased with his recovery. He has no other complaints. We reviewed his medical history. He had his Isaacs catheter removed and he has voided since that time. Review of Systems Review of Systems: All systems reviewed & are unremarkable except as noted in HPI & below He reports a history of overactive bladder and urinary incontinence only at nighttime for which he wears diapers Physical Exam Constitutional: WD/WN, vitals as above Eyes: + anicteric sclerae Neck: trachea midline, no thyromegaly Respiratory: normal respiratory effort, lungs clear to auscultation Cardiovascular: RRR, no murmur, no edema Chest (Breasts): Chest: normal inspection of chest Gastrointestinal (Abdomen): normal bowel sounds, soft, nontender, no hepatosplenomegaly Musculoskeletal: Extremities: extremities normal to inspection; no cyanosis and no clubbing Skin: no rashes, warm and dry Neurologic: moves all extremities and awake; no focal motor deficits Psychiatric: A+Ox3, euthymic affect Lymphatic: no lymphedema Results & Data Results & Data ([facility]) Vital Signs (Past 12 Hours) Vital Signs Temp Pulse Pulse Resp BP BP BP 10/17/19 15:31 36.6 C 66 16 144/71 H 10/17/19 14:44 36.6 C 67 16 122/66 10/17/19 14:10 36.4 C L 90 16 121/71 10/17/19 12:45 36.7 C 74 16 117/65 10/17/19 12:17 36.8 C 78 16 118/65 10/17/19 12:15 36.9 C 70 16 115/62 10/17/19 12:00 37.0 C 81 16 100/60 10/17/19 11:46 36.8 C 73 16 106/61 10/17/19 10:45 36.7 C 73 16 133/68 10/17/19 10:15 36.5 C 76 16 128/70 10/17/19 09:45 36.8 C 71 16 120/68 10/17/19 09:15 36.4 C L 71 18 130/67 10/17/19 09:00 36.5 C 75 18 116/67 10/17/19 08:41 36.8 C 90 18 115/68 10/17/19 07:23 36.4 C L 70 15 104/57 L Pulse Ox 10/17/19 15:31 98 10/17/19 14:44 94 10/17/19 14:10 07/16/20 12:45 10/17/19 12:17 10/17/19 12:15 10/17/19 12:00 99 10/17/19 11:46 10/17/19 10:45 99 10/17/19 10:15 97 10/17/19 09:45 97 10/17/19 09:15 99 10/17/19 09:00 99 10/17/19 08:41 10/17/19 07:23 99 Laboratory Results 10/17/19 10/17/19 10/17/19 Range/Units 17:10 12:11 08:23 WBC (4.8-10.8) K/uL RBC (4.7-6.1) M/uL Hgb (14.0-18.0) g/dL Hct (42-52) % MCV (80-100) fL MCH (25-34) pg MCHC (32-36) g/dL RDW Std Deviation (36.4-46.3) fL RDW Coeff of Hallie (11.5-14.5) % Plt Count (130-400) K/uL MPV (7.4-10.4) fL Immature Gran % (Auto) % Neut % (Auto) % Lymph % (Auto) % Valley % (Auto) % Eos % (Auto) % Baso % (Auto) % Neut # (Auto) (1.4-6.5) K/uL Lymph # (Auto) (1.2-3.4) K/uL Valley # (Auto) (0.11-0.59) K/uL Eos # (Auto) (0-0.5) K/uL Baso # (Auto) (0-0.2) K/uL Immature Gran # (Auto) (0.00-0.02) K/uL Sodium (136-145) mmol/L Potassium (3.5-5.1) mmol/L Chloride (98-107) mmol/L Carbon Dioxide (21-32) mmol/L Anion Gap (3-11) BUN (7-18) mg/dl Creatinine (0.6-1.4) mg/dl Est Cr Clr Drug Dosing ml/min Est GFR ( Amer) Est GFR (Non-Af Amer) BUN/Creatinine Ratio (10-20) Glucose (70-99) mg/dl POC Glucose 122 H 150 H 109 H (70-99) mg/dl Calcium (8.5-10.1) mg/dl Blood Type Antibody Screen Crossmatch 10/17/19 10/17/19 10/17/19 Range/Units 05:58 05:58 04:00 WBC 11.53 H (4.8-10.8) K/uL RBC 2.74 L (4.7-6.1) M/uL Hgb 8.1 L (14.0-18.0) g/dL Hct 24.1 L (42-52) % MCV 88.0 (80-100) fL MCH 29.6 (25-34) pg MCHC 33.6 (32-36) g/dL RDW Std Deviation 44.6 (36.4-46.3) fL RDW Coeff of Hallie 13.9 (11.5-14.5) % Plt Count 176 (130-400) K/uL MPV 10.8 H (7.4-10.4) fL Immature Gran % (Auto) 0.3 % Neut % (Auto) 83.4 % Lymph % (Auto) 8.9 % Valley % (Auto) 7.1 % Eos % (Auto) 0.2 % Baso % (Auto) 0.1 % Neut # (Auto) 9.62 H (1.4-6.5) K/uL Lymph # (Auto) 1.03 L (1.2-3.4) K/uL Valley # (Auto) 0.82 H (0.11-0.59) K/uL Eos # (Auto) 0.02 (0-0.5) K/uL Baso # (Auto) 0.01 (0-0.2) K/uL Immature Gran # (Auto) 0.03 H (0.00-0.02) K/uL Sodium 144 (136-145) mmol/L Potassium 4.0 (3.5-5.1) mmol/L Chloride 111 H (98-107) mmol/L Carbon Dioxide 26 (21-32) mmol/L Anion Gap 7.0 (3-11) BUN 19 H (7-18) mg/dl Creatinine 1.17 (0.6-1.4) mg/dl Est Cr Clr Drug Dosing 55.1 ml/min Est GFR ( Amer) 70.3 Est GFR (Non-Af Amer) 60.6 BUN/Creatinine Ratio 16.4 (10-20) Glucose 120 H (70-99) mg/dl POC Glucose 126 H (70-99) mg/dl Calcium 7.9 L (8.5-10.1) mg/dl Blood Type Antibody Screen Crossmatch 10/16/19 10/16/19 10/16/19 Range/Units 23:59 20:51 18:13 WBC (4.8-10.8) K/uL RBC (4.7-6.1) M/uL Hgb (14.0-18.0) g/dL Hct (42-52) % MCV (80-100) fL MCH (25-34) pg MCHC (32-36) g/dL RDW Std Deviation (36.4-46.3) fL RDW Coeff of Hallie (11.5-14.5) % Plt Count (130-400) K/uL MPV (7.4-10.4) fL Immature Gran % (Auto) % Neut % (Auto) % Lymph % (Auto) % Valley % (Auto) % Eos % (Auto) % Baso % (Auto) % Neut # (Auto) (1.4-6.5) K/uL Lymph # (Auto) (1.2-3.4) K/uL Valley # (Auto) (0.11-0.59) K/uL Eos # (Auto) (0-0.5) K/uL Baso # (Auto) (0-0.2) K/uL Immature Gran # (Auto) (0.00-0.02) K/uL Sodium (136-145) mmol/L Potassium (3.5-5.1) mmol/L Chloride (98-107) mmol/L Carbon Dioxide (21-32) mmol/L Anion Gap (3-11) BUN (7-18) mg/dl Creatinine (0.6-1.4) mg/dl Est Cr Clr Drug Dosing ml/min Est GFR ( Amer) Est GFR (Non-Af Amer) BUN/Creatinine Ratio (10-20) Glucose (70-99) mg/dl POC Glucose 152 H 172 H 200 H (70-99) mg/dl Calcium (8.5-10.1) mg/dl Blood Type Antibody Screen Crossmatch 10/16/19 Range/Units 08:55 WBC (4.8-10.8) K/uL RBC (4.7-6.1) M/uL Hgb (14.0-18.0) g/dL Hct (42-52) % MCV (80-100) fL MCH (25-34) pg MCHC (32-36) g/dL RDW Std Deviation (36.4-46.3) fL RDW Coeff of Hallie (11.5-14.5) % Plt Count (130-400) K/uL MPV (7.4-10.4) fL Immature Gran % (Auto) % Neut % (Auto) % Lymph % (Auto) % Valley % (Auto) % Eos % (Auto) % Baso % (Auto) % Neut # (Auto) (1.4-6.5) K/uL Lymph # (Auto) (1.2-3.4) K/uL Valley # (Auto) (0.11-0.59) K/uL Eos # (Auto) (0-0.5) K/uL Baso # (Auto) (0-0.2) K/uL Immature Gran # (Auto) (0.00-0.02) K/uL Sodium (136-145) mmol/L Potassium (3.5-5.1) mmol/L Chloride (98-107) mmol/L Carbon Dioxide (21-32) mmol/L Anion Gap (3-11) BUN (7-18) mg/dl Creatinine (0.6-1.4) mg/dl Est Cr Clr Drug Dosing ml/min Est GFR ( Amer) Est GFR (Non-Af Amer) BUN/Creatinine Ratio (10-20) Glucose (70-99) mg/dl POC Glucose (70-99) mg/dl Calcium (8.5-10.1) mg/dl Blood Type A Positive Antibody Screen NEGATIVE Crossmatch See Detail PG Care Time/CCT Total # of Minutes Spent Total Time Spent with Patient: Total time spent is greater than 50% in coordination of care (as documented) at patient's floor/unit and/or counseling patient: Coding Level of Care Code 63629 Subseq Hosp Care Lvl 2 Diagnoses Neurogenic claudication due to lumbar spinal stenosis M48.062 Overactive bladder N32.81 Diabetes mellitus, type 2 E11.9 Seizure R56.9 High blood pressure I10 Acute blood loss anemia D62
[2019-10-17] MEDS: DOCUSATE SODIUM/SENNA 50/8.6MG TAB PO SCH (21:01)
[2019-10-17] MEDS: TRAMADOL HCL 50 MG TABLET PO PRN (23:39)
--- NOTE | 2019-10-18 02:18 | Billing Data ---
Date of Service October 18, 2019 Coding Level of Care Code 78548 Inpt Consult Level 3
[2019-10-18] MEDS: OXYCODONE HCL IR 5 MG TAB (IMMEDIATE RELEASE) PO PRN ×4 (04:40→22:27)
[2019-10-18] MEDS: POLYETHYLENE (MIRALAX) 17 GM PACK PO SCH ×4 (04:41→23:56)
[2019-10-18 06:08] LABS: Basophils # (auto) 0.01 K/uL (0-0.2); Basophils % (auto) 0.1 %; Eosinophils % (auto) 0.9 %; Hematocrit (blood only) 28.5 % (42-52); Hemoglobin 9.6 g/dL (14.0-18.0); Immature Granulocytes # (auto) 0.05 K/uL (0.00-0.02); Immature Granulocytes % (auto) 0.4 %; Lymphocytes # (auto) 1.36 K/uL (1.2-3.4); Lymphocytes % (auto) 11.6 %; Mean Corpuscular Hemoglobin 29.2 pg (25-34); Mean Corpuscular Hgb Conc 33.7 g/dL (32-36); Mean Corpuscular Volume 86.6 fL (80-100); Mean Platelet Volume 10.6 fL (7.4-10.4); Monocytes # (auto) 1.13 K/uL (0.11-0.59); Monocytes % (auto) 9.7 %; Neutrophils # (auto) 9.03 K/uL (1.4-6.5); Neutrophils % (auto) 77.3 %; Platelet Count 144 K/uL (130-400); RDW Coefficient of Variation 14.6 % (11.5-14.5); RDW Standard Deviation 45.9 fL (36.4-46.3); Red Blood Count 3.29 M/uL (4.7-6.1); White Blood Count 11.68 K/uL (4.8-10.8)
[2019-10-18 06:38] LABS: BUN Creatinine Ratio 17.5 (10-20); Est GFR (African American) 65.5; Est GFR (Non-African American) 56.5
[2019-10-18] MEDS: TRAMADOL HCL 50 MG TABLET PO PRN ×2 (07:49→15:11)
[2019-10-18] MEDS: CYANOCOBALAMIN 500 MCG TABLET (VITAMIN B-12) PO SCH (07:51)
[2019-10-18] MEDS: FOLIC ACID 1 MG TAB PO SCH (07:51)
[2019-10-18] MEDS: FERROUS SULFATE 325 MG TAB PO SCH ×2 (07:51→17:44)
[2019-10-18] MEDS: CHOLECALCIFEROL 1,000 UNITS 25 MCG TAB PO SCH (07:51)
[2019-10-18] MEDS: GABAPENTIN 300 MG CAP PO SCH ×2 (07:51→20:37)
[2019-10-18] MEDS: ASCORBIC ACID 500 MG TAB PO SCH (07:52)
[2019-10-18] MEDS: MULTIVITAMIN TAB PO SCH (07:52)
[2019-10-18] MEDS: levETIRAcetam 500 MG TAB PO SCH ×2 (07:52→20:37)
[2019-10-18] MEDS: IRBESARTAN 150 MG TAB PO SCH (07:52)
[2019-10-18] MEDS: OXYBUTYNIN CHLORIDE 5 MG TAB PO SCH ×2 (07:53→20:36)
[2019-10-18] MEDS: DEXAMETHASONE SOD PHOSPHATE 6 MG in SYRINGE 0 ML IV SCH (07:55)
[2019-10-18] MEDS: INSULIN ASPART 100 UNITS/ML 3 ML PEN SC SCH ×4 (08:37→20:40)
[2019-10-18] MEDS ORDERED: NovoLIN-N (NPH) PER UNIT CHARGE SQ SCH (09:00)
--- NOTE | 2019-10-18 09:38 | XRay Report ---
XR lumbar spine 2-3V CLINICAL HISTORY: post op standing COMPARISON STUDY: No previous studies for comparison. FINDINGS: There are postsurgical changes of a T12-S1 posterior spinal fusion. There is evidence for d iscectomies interbody fusions at the L4-5 and L-S1 levels. There is an overlying posterior surgical d rain. There is a mild S-shaped scoliosis. There are moderate multilevel degenerative changes. There a re scattered air-fluid levels present within the bowel, possibly representing a postsurgical ileus. IMPRESSION: 1. Postsurgical changes within the thoracolumbar spine 2. Multiple air-fluid levels, possibly representing a postsurgical ileus ACT 112: Negative or not required by law. Electronically signed by: Gene Boyd M.D. 10/18/2019 9:36 AM
--- NOTE | 2019-10-18 10:34 | Orthopedic Progress Note ---
Date of Service October 18, 2019 Assessment & Plan (1) Neurogenic claudication due to lumbar spinal stenosis: We will continue physical therapy today monitor his SUMIT output advance his bowel regiment anticipate discharge home later this weekend. Present on Admission?: Yes Admission and Anticipated Discharge Date Admission Date: October 16, 2019 Subjective Patient's back pain is controlled leg symptoms markedly improved. Physical Exam Physical Exam: He has good strength testing peers comfortable. Results & Data ([facility]) Vital Signs (Past 12 Hours) Vital Signs Temp Pulse Resp BP Pulse Ox 10/18/19 07:24 36.5 C 67 16 126/60 98 10/17/19 23:49 36.8 C 76 18 124/61 98
[2019-10-18] MEDS: DOCUSATE SODIUM/SENNA 50/8.6MG TAB PO SCH (20:38)
[2019-10-18] MEDS: ACETAMINOPHEN 500 MG TAB PO PRN (22:28)
[2019-10-19] MEDS: OXYCODONE HCL IR 5 MG TAB (IMMEDIATE RELEASE) PO PRN ×4 (04:12→22:20)
[2019-10-19] MEDS: POLYETHYLENE (MIRALAX) 17 GM PACK PO SCH ×2 (05:31→12:34)
[2019-10-19] MEDS: GABAPENTIN 300 MG CAP PO SCH ×2 (08:00→20:09)
[2019-10-19] MEDS: IRBESARTAN 150 MG TAB PO SCH (08:00)
[2019-10-19] MEDS: FOLIC ACID 1 MG TAB PO SCH (08:00)
[2019-10-19] MEDS: ASCORBIC ACID 500 MG TAB PO SCH (08:00)
[2019-10-19] MEDS: FERROUS SULFATE 325 MG TAB PO SCH ×2 (08:00→16:35)
[2019-10-19] MEDS: OXYBUTYNIN CHLORIDE 5 MG TAB PO SCH ×2 (08:00→20:08)
[2019-10-19] MEDS: MULTIVITAMIN TAB PO SCH (08:00)
[2019-10-19] MEDS: CHOLECALCIFEROL 1,000 UNITS 25 MCG TAB PO SCH (08:00)
[2019-10-19] MEDS: CYANOCOBALAMIN 500 MCG TABLET (VITAMIN B-12) PO SCH (08:00)
[2019-10-19] MEDS: levETIRAcetam 500 MG TAB PO SCH ×2 (08:01→20:08)
[2019-10-19] MEDS: DEXAMETHASONE SOD PHOSPHATE 6 MG in SYRINGE 0 ML IV SCH ×2 (08:01→08:08)
[2019-10-19] MEDS ORDERED: NovoLIN-N (NPH) PER UNIT CHARGE SQ SCH (09:00)
[2019-10-19] MEDS: INSULIN ASPART 100 UNITS/ML 3 ML PEN SC SCH ×4 (09:11→21:20)
--- NOTE | 2019-10-19 09:49 | Orthopedic Progress Note ---
Date of Service October 19, 2019 Assessment & Plan (1) Neurogenic claudication due to lumbar spinal stenosis: This time we will continue physical therapy today monitor his SUMIT output continue his bowel regiment. Anticipate discharge home tomorrow. Present on Admission?: Yes Admission and Anticipated Discharge Date Admission Date: October 16, 2019 Subjective Back pain controlled leg pain improved. No bowel movement as of yet. Positive flatus. Physical Exam Physical Exam: Patient is in the chair at the bedside. Is good strength testing. Appears comfortable. Results & Data ([facility]) Vital Signs (Past 12 Hours) Vital Signs Temp Pulse Resp BP BP Pulse Ox 10/19/19 07:00 36.4 C L 68 16 121/66 96 10/18/19 23:12 37.1 C 77 16 130/57 L 98
[2019-10-19] MEDS: ACETAMINOPHEN 500 MG TAB PO PRN ×2 (12:43→20:10)
[2019-10-19] MEDS: DOCUSATE SODIUM/SENNA 50/8.6MG TAB PO SCH (20:10)
[2019-10-20] MEDS: ACETAMINOPHEN 500 MG TAB PO PRN (04:59)
[2019-10-20] MEDS: CHOLECALCIFEROL 1,000 UNITS 25 MCG TAB PO SCH (07:48)
[2019-10-20] MEDS: ASCORBIC ACID 500 MG TAB PO SCH (07:48)
[2019-10-20] MEDS: OXYBUTYNIN CHLORIDE 5 MG TAB PO SCH (07:49)
[2019-10-20] MEDS: FOLIC ACID 1 MG TAB PO SCH (07:49)
[2019-10-20] MEDS: levETIRAcetam 500 MG TAB PO SCH (07:49)
[2019-10-20] MEDS: FERROUS SULFATE 325 MG TAB PO SCH (07:49)
[2019-10-20] MEDS: GABAPENTIN 300 MG CAP PO SCH (07:49)
[2019-10-20] MEDS: IRBESARTAN 150 MG TAB PO SCH (07:49)
[2019-10-20] MEDS: CYANOCOBALAMIN 500 MCG TABLET (VITAMIN B-12) PO SCH (07:50)
[2019-10-20] MEDS: MULTIVITAMIN TAB PO SCH (07:50)
[2019-10-20] MEDS: INSULIN ASPART 100 UNITS/ML 3 ML PEN SC SCH ×2 (07:55→12:55)
[2019-10-20] MEDS: DEXAMETHASONE SOD PHOSPHATE 6 MG in SYRINGE 0 ML IV SCH ×2 (08:04→08:08)
--- NOTE | 2019-10-20 08:46 | Discharge Summary ---
Date of Service October 20, 2019 Admission HPI Per Admitting Provider This is a 74-year-old male that has marked back and leg symptoms. After failing a course of nonoperative care is here for surgical intervention. Admission Exam (Per Admitting) Constitutional WD/WN, vitals as above Eyes normal visual rodriguez by confrontation ENMT external ear and nose normal, oropharynx normal Neck normal visual inspection Respiratory normal respiratory effort Cardiovascular RRR, no murmur, no edema Gastrointestinal (Abdomen) Inspection/Auscultation: abdomen normal to inspection Musculoskeletal Extremities: extremities normal to inspection and strength 5/5 throughout Skin no rashes, warm and dry Neurologic patellar DTR's 2+ bilat, sensation intact normal touch/pain/proprioception and moves all extremities Psychiatric A+Ox3, euthymic affect Discharge Data Consultations 10/16/19 17:40 Consult Case Management - Discharge Planning Routine 10/16/19 18:36 Consult Hospitalist Routine Procedures Performed Operation Date: 10/16/19 10:05 Actual Procedures p L2-S1 Decompression, T12-S1 Fusion, Spinal Cord Monitoring, Interbody placement at L4-L5, L5-S1, Application of Bone Morphogenetic Protein (Not Applicable) - Cricket Tovar, [facility] Course (1) Neurogenic claudication due to lumbar spinal stenosis: Patient has had an uncomplicated postoperative course. He has made progress in physical therapy daily. Pain is controlled. He has had a bowel movement on postoperative day 3. Lab values have been stable. He is being discharged home on postoperative day 4. Discharge Instructions ACTIVITY RECOMMENDATIONS: SELF CARE INSTRUCTIONS AFTER THORACIC/LUMBAR FUSIONS 1. You may walk to your tolerance. It is good exercise for your legs and back. Expect some back and intermittent leg aches and pains. 2. You may perform "counter-top" level activities (make a sandwich, reuben with a project, etc.). 3. No bending or lifting of more than 10 pounds or back twisting of any nature (roll like a log when turning in bed). 4. You may ride in a car for 20-30 minutes at a time. No driving until after your first visit with your doctor. 5. Frequent changes of position and restricting sitting to 30 minutes at a time will help limit the amount of back spasms and stiffness you may experience. 6. You may discontinue the use of ambulatory aids (cane, crutches, etc.) once your strength and confidence allow. 7. You may infant toddler lead teacher the shower and let water strike your incision when you arrive home at least once daily. Do not take a tub bath, sit in a hot tub or go into a swimming pool until after your first recheck in the office. SPECIAL CARE INSTRUCTIONS: VERY IMPORTANT TO READ AND REVIEW A. Your surgical incision has been closed with a cosmetic suture under the skin that will dissolve in about 6 weeks. In 14 days, you can use a pair of clean scissors and cut the suture that is left outside of the skin at the ends of your incision. 1. The small skin tapes can be removed 7 days after surgery if they have not fallen off by that point. 2. You may keep the wound open to air as much as possible to promote healing after post-op day number 5 unless told otherwise by your doctor. 3. If you think the wound looks like it is becoming infected (redness or worsening drainage) and/or you are experiencing fever, chill or worsening back pain and muscle spasms, contact the office so that we may evaluate you as soon as possible. B. Complications are uncommon, but please contact us if you have any signs or symptoms of: 1. wound infection (fever higher than 102.5 degrees F, redness, separation of wound, drainage, or increasing pain from the incision) 2. blood clots in legs (pain, swelling, redness and warmth in legs) 3. urinary tract infection (fever higher than 102.5 degrees F, burning upon urination or increased frequency of urination) 4. nerve problems (inability to walk on your toes or heels, numbness, loss of bowel or bladder control) 5. any other symptoms that concern you C. Please call the office at if you have any concerns or questions about your operation or recovery. D. No smoking! Smoking drastically decreases the chance of a solid fusion. E. Do not take any anti-inflammatory medications (Indocin, Advil, Motrin, Aspirin, Naprosyn, etc.) as these may inhibit the chance of a solid fusion. Tylenol is okay to take for pain. MANAGING PAIN AFTER SPINAL SURGERY 1. Narcotic medication is intended for short-term use and will be provided for surgical pain. Surgical pain usually lasts for a period of 4-6 weeks. Narcotic medication includes Percocet, Vicodin, Darvocet, Tylenol #3 or Lortab. 2. Longer-term pain is more appropriately treated with non-narcotic medication such as Tylenol ES. 3. Muscle spasm is not appropriately treated with narcotics. Muscle relaxers such as Soma, Flexeril or Skelaxin can be used along with Tylenol ES. 4. Remember that we all live with some "aches and pains". This is not unusual or uncommon after an injury or as we get older. a. Back pain is expected and may include muscle spasms for 4 to 6 weeks after surgery. The pain should gradually improve. If the pain worsens for no apparent reason, please contact the office. b. Intermittent leg pain may also be experienced and should not be concerned about unless it worsens for no apparent reason. If so, please contact the office. 5. We will provide appropriate medication within the normal guidelines of their prescribed use. We will also be very cautious and aware of potential abuse and extended duration of patients' medication needs. a. Pain medications are for your comfort and to assist with sleep and rest so that the tissue can heal. They are not provided in order to return to normal activity and should not be used through the day. To do so or worsening pain at night can result from ongoing tissue damage and development of tolerance to the prescribed medicine. 6. Please allow 2-3 days to process refills. Prescriptions will not be mailed but must be picked up at the office. FOLLOW UP VISIT: Keep your scheduled follow-up appointment. Any questions, please call the office at . Supervising Physician Co-Signing Physician Notes Dr. Cricket Tovar
[2019-10-20] MEDS ORDERED: NovoLIN-N (NPH) PER UNIT CHARGE SQ SCH (09:00)
[2019-10-20] MEDS: OXYCODONE HCL IR 5 MG TAB (IMMEDIATE RELEASE) PO PRN (10:46)
== END 2019-10-20 13:27 | disposition home or self-care (01) | DRG 454 ==
LOC: ASU 08:35 → 3E 16:41

== ENCOUNTER 2023-11-20 08:38 | Observation (INO) ==
--- NOTE | 2023-10-24 10:37 | PAT Medication Instructions ---
Medication Instructions Date of Service October 24, 2023 Home Medications Medication Instructions Recorded oxycodone 5 mg tablet 5 mg PO Q6H PRN pain, severe #20 10/17/19 tabs oxybutynin chloride 10 mg 10 mg PO BID #180 tabs 10/26/22 tablet,extended release 24 hr ascorbic acid (vitamin C) 1,000 mg tablet (Vitamin C) 1,000 mg PO QAM cholecalciferol (vitamin D3) 25 mcg (1,000 unit) capsule (Vitamin D3) 25 mcg PO QAM cyanocobalamin (vitamin B-12) 1,000 mcg capsule 1,000 mcg PO QAM docusate sodium 100 mg capsule (Stool Softener) 100 mg PO BID ferrous sulfate 325 mg (65 mg iron) tablet (iron) 325 mg PO BID folic acid 1 mg tablet 1 mg PO QAM gabapentin 300 mg capsule 600 mg PO BID irbesartan 300 mg tablet 300 mg PO QAM levetiracetam 1,000 mg tablet (Keppra) 1,000 mg PO BID metformin 1,000 mg tablet 1,000 mg PO BID multivitamin 1 tab PO QAM tramadol 50 mg tablet 50 mg PO Q6H PRN vitamins A,C,R-uawz-mqxibg 2,148 mcg-113 mg-45 mg-17.4 mg tablet (PreserVision AREDS) 1 tab PO BID oxycodone 5 mg tablet 5 mg PO Q6H PRN evolocumab 140 mg/mL subcutaneous pen injector (Repatha SureClick) 0 mg subcut UD oxybutynin chloride 10 mg tablet,extended release 24 hr 10 mg PO BID ASK your prescriber and surgeon evolocumab 140 mg/mL subcutaneous pen injector (Repatha SureClick) 0 mg subcut UD STOP taking 2 weeks before surgery (or as soon as possible if surgery is within 2 weeks) vitamins A,C,J-eojg-gikssw 2,148 mcg-113 mg-45 mg-17.4 mg tablet (PreserVision AREDS) 1 tab PO BID DO NOT take the morning of surgery ascorbic acid (vitamin C) 1,000 mg tablet (Vitamin C) 1,000 mg PO QAM cholecalciferol (vitamin D3) 25 mcg (1,000 unit) capsule (Vitamin D3) 25 mcg PO QAM cyanocobalamin (vitamin B-12) 1,000 mcg capsule 1,000 mcg PO QAM docusate sodium 100 mg capsule (Stool Softener) 100 mg PO BID ferrous sulfate 325 mg (65 mg iron) tablet (iron) 325 mg PO BID folic acid 1 mg tablet 1 mg PO QAM irbesartan 300 mg tablet 300 mg PO QAM metformin 1,000 mg tablet 1,000 mg PO BID multivitamin 1 tab PO QAM oxybutynin chloride 10 mg tablet,extended release 24 hr 10 mg PO BID Take morning of surgery With a small sip of water, OTHERWISE NOTHING TO EAT OR DRINK AFTER MIDNIGHT: gabapentin 300 mg capsule 600 mg PO BID levetiracetam 1,000 mg tablet (Keppra) 1,000 mg PO BID tramadol 50 mg tablet 50 mg PO Q6H PRN(if needed) oxycodone 5 mg tablet 5 mg PO Q6H PRN(if needed) Take evening before surgery docusate sodium 100 mg capsule (Stool Softener) 100 mg PO BID ferrous sulfate 325 mg (65 mg iron) tablet (iron) 325 mg PO BID gabapentin 300 mg capsule 600 mg PO BID levetiracetam 1,000 mg tablet (Keppra) 1,000 mg PO BID metformin 1,000 mg tablet 1,000 mg PO BID oxybutynin chloride 10 mg tablet,extended release 24 hr 10 mg PO BID tramadol 50 mg tablet 50 mg PO Q6H PRN(if needed) oxycodone 5 mg tablet 5 mg PO Q6H PRN(if needed) Other Notes If you have any questions please call us at [phone] or [phone] or [phone] or [phone]
--- NOTE | 2023-10-24 14:35 | Anesthesiology Consultation ---
Date of Service October 24, 2023 Assessment & Plan (1) Encounter for pre-operative examination: Plan - will request carotid imaging and most recent office note from Dr. Bhatti completed in [facility] per patient. - surgeon ordered medical clearance (Dr. Ackerman). - Phyllis with surgeon's office advised and patient states he is to remain overnight after surgery. OR notified. Chart Review Chart Review: Pending: Refer to Additional Notes / Consult section and Patient seen in Pre Admission Testing Teaching & Discussion Pre-Anesthesia Teaching/Discussion Notes: Instructed NPO after midnight before surgery, except medications with 15 cc of water. Medication instructions provided according to the PAT guidelines. History Surgery Operation Date: 11/20/23 10:45 Proposed Procedures p OP: Left Total Hip Replacement - Anterior Approach - Sammy Duran MD Height/Weight Height: 5 ft 11 in Weight: 70.6 kg Allergies Allergy/AdvReac Type Severity Reaction Status Date / Time No Known Allergies Allergy Verified 10/24/23 08:34 Medications Home Medications Medication Instructions Recorded Confirmed Last Taken ascorbic acid (vitamin C) 1,000 mg 1,000 mg PO QAM 09/25/19 10/24/23 10/15/19 21:00 tablet (Vitamin C) cholecalciferol (vitamin D3) 25 25 mcg PO QAM 09/25/19 10/24/23 10/15/19 21:00 mcg (1,000 unit) capsule (Vitamin D3) cyanocobalamin (vitamin B-12) 1,000 mcg PO QAM 09/25/19 10/24/23 10/15/19 21:00 1,000 mcg capsule docusate sodium 100 mg capsule 100 mg PO BID 09/25/19 10/24/23 10/15/19 21:00 (Stool Softener) ferrous sulfate 325 mg (65 mg 325 mg PO BID 09/25/19 10/24/23 10/15/19 21:00 iron) tablet (iron) folic acid 1 mg tablet 1 mg PO QAM 09/25/19 10/24/23 10/15/19 21:00 gabapentin 300 mg capsule 600 mg PO BID 09/25/19 10/24/23 10/16/19 06:00 irbesartan 300 mg tablet 300 mg PO QAM 09/25/19 10/24/23 10/16/19 06:00 levetiracetam 1,000 mg tablet 1,000 mg PO BID 09/25/19 10/24/23 10/16/19 06:00 (Keppra) metformin 1,000 mg tablet 1,000 mg PO BID 09/25/19 10/24/23 10/15/19 21:00 multivitamin 1 tab PO QAM 09/25/19 10/24/23 10/15/19 21:00 tramadol 50 mg tablet 50 mg PO Q6H PRN Pain 09/25/19 10/24/23 10/15/19 21:00 vitamins A,C,P-pmmr-pwjxsa 2,148 1 tab PO BID 09/25/19 10/24/23 10/15/19 21:00 mcg-113 mg-45 mg-17.4 mg tablet (PreserVision AREDS) oxycodone 5 mg tablet 5 mg PO Q6H PRN pain, severe #20 10/17/19 10/24/23 Unknown tabs evolocumab 140 mg/mL subcutaneous 0 mg subcut UD 09/05/22 10/24/23 Unknown pen injector (Repmariposa Onealick) oxybutynin chloride 10 mg 10 mg PO BID #180 tabs 10/26/22 10/24/23 Unknown tablet,extended release 24 hr Past Medical History Medical History Arthritis Carotid artery stenosis Chronic back pain Deviated septum Diabetes History of anemia History of colon polyps History of kidney stones History of prostate cancer (~2003) sx and radiation History of seizure one per pt- approx 2019 - and no - re occurrence. Unknown etiology per pt-on Keppra. Hypertension controlled, stable per pt Macular degeneration early stage/no progression over last 2 yrs. Neuropathy feet Urinary incontinence Patient denies h/o stroke, heart attack, heart failure, DM, blood clots/DVTs or blood transfusions. Exercise / Class Metabolic Activity II 4-5 Yardwork/Stairs/Walk up hill (denies chest discomfort or shortness of breath with one flight of stairs) Past Family History Family History Father Hypertension Grandmother Diabetes PATERNAL Sister Family hx of colon cancer Past Surgical History Surgical History History of cardiac cath 2008 no stents History of colonoscopy History of lumbar spinal fusion History of prostatectomy approx 2003 History of total knee replacement left History of total replacement of left shoulder joint Hx of hernia repair Previous back surgery mini laminectomy Past Anesthesia History No Hx of Anesthesia Complications and No Family Hx of Anesthesia Complications History of PONV No Hx of PONV and No Hx of Motion Sickness Social History Smoking Status: Never smoker Do You Dip or Chew Tobacco: No Hx Alcohol Use: No Hx Substance Use: No substance use type: does not use Review of Systems Occasional snoring, denies witnessed apneas. Patient denies chest pain, shortness of breath, dyspnea on exertion, reflux, fever, chills, cough, wheezing, or palpitations. Physical Exam Vital Signs Vitals BP 122/60 P 66 SP02 98% on RA RESP 18 Physical Patient resting comfortably in chair in no acute distress, alert and oriented, responding appropriately throughout visit Full cervical extension range of motion without pain TMD 3.5 finger breadths Mallampati Score 2 Dentition: full upper dentures, denies chipped or loose teeth, caps/crowns, implants or bridges Lungs: normal respiratory effort. Good air movement, clear throughout to auscultation, no adventitious breath sounds Cardiac: regular rate and rhythm, no murmurs noted Carotid arteries: negative bruit bilat Lab Results Anesthesia Preop Results Results Anesthesia Widget: WBC 9.09 K/ul (4.8-10.8) 10/24/23 Hgb 11.4 g/dl (14.0-18.0) L 10/24/23 Hct 34.5 % (42.0-52.0) L 10/24/23 Plt 223 K/uL (130-400) 10/24/23 Na 138 mmol/L (136-145) 10/24/23 K 4.9 mmol/L (3.5-5.1) 10/24/23 Cl 102 mmol/L (98-107) 10/24/23 CO2 29 mmol/L (21-32) 10/24/23 BUN 29 mg/dl (6-23) H 10/24/23 Creat 1.40 mg/dl (0.6-1.4) 10/24/23 Glucose Level 108 mg/dl (70-99(Fasting)) H 10/24/23 PT 11.0 Seconds (9.0-12.0) 10/24/23 PTT 32 Seconds (21-31) H 10/24/23 INR 1.0 (0.9-1.1) 10/24/23 HA1c 7.0 % (4.5-5.6) H 10/24/23 Urine Color Yellow 10/24/23 Urine Appearance Clear (Clear) 10/24/23 Urine pH 6.0 (4.5-7.5) 10/24/23 Urine Specific [place] 1.019 (1.000-1.030) 10/24/23 Urine Protein Trace (Negative) H 10/24/23 Urine Glucose (UA) Negative (Negative) 10/24/23 Urine Ketones Negative (Negative) 10/24/23 Urine Blood Negative (Negative) 10/24/23 Urine Nitrite Negative (Negative) 10/24/23 Urine Bilirubin Negative (Negative) 10/24/23 Urine Urobilinogen Negative (Negative) 10/24/23 Urine Leukocyte Esterase Negative (Negative) 10/24/23 Urine WBC (Auto) 0-5 /hpf (0-5) 10/24/23 Urine RBC (Auto) 3-5 /hpf (0-2) H 10/24/23 Urine Hyaline Casts (Auto) 0-2 /lpf (0-2) 10/24/23 Urine Epithelial Cells (Auto) 0-2 /hpf (0-2) 10/24/23 Urine Bacteria (Auto) None Seen (None Seen) 10/24/23 Blood Type A Positive 10/24/23 Antibody Screen NEGATIVE 10/24/23 Testing Electrocardiogram Date: 10/24/23 Sinus bradycardia, rate 50 bpm Low voltage QRS Chest X-Ray Date: 10/24/23 No acute process of the chest.
--- NOTE | 2023-11-17 13:53 | History & Physical Report ---
Date of Service November 17, 2023 Assessment & Plan (1) Degenerative joint disease of left hip: Plan: Left total hip replacement cemented direct anterior approach most likely overnight stay and then home with [facility] History of Present Illness Chief Complaint: Left hip pain Primary Care Provider: Ash Ackerman Patient is a 78-year-old male with greater than 6-month history of left hip and groin pain. The pain is associated with marked decrease in range of motion. The patient cannot tie his shoe and sock at this time. He has limited standing and walking tolerance and requires a cane for most activities of daily living. Radiographically he has evidence of moderate to advanced degenerative joint disease with moderate acetabular dysplasia and large femoral head cam lesion. He is a diabetic his A1c has been in the mid sixes to no greater than 7. He also has a history of extensive spine surgery with a broken screw but his pain is all hip and groin and in consultation with spine is felt to be the hip as the primary pain generator. He is admitted for elective hip replacement for cemented total hip replacement. Allergies Allergy/AdvReac Type Severity Reaction Status Date / Time No Known Allergies Allergy Verified 10/27/23 13:55 Home Medications Medication Instructions Recorded Confirmed Type ascorbic acid (vitamin C) 1,000 mg 1,000 mg PO QAM 09/25/19 10/27/23 History tablet (Vitamin C) cholecalciferol (vitamin D3) 25 25 mcg PO QAM 09/25/19 10/27/23 History mcg (1,000 unit) capsule (Vitamin D3) cyanocobalamin (vitamin B-12) 1,000 mcg PO QAM 09/25/19 10/27/23 History 1,000 mcg capsule docusate sodium 100 mg capsule 100 mg PO BID 09/25/19 10/27/23 History (Stool Softener) ferrous sulfate 325 mg (65 mg 325 mg PO BID 09/25/19 10/27/23 History iron) tablet (iron) folic acid 1 mg tablet 1 mg PO QAM 09/25/19 10/27/23 History gabapentin 300 mg capsule 600 mg PO BID 09/25/19 10/27/23 History irbesartan 300 mg tablet 300 mg PO QAM 09/25/19 10/27/23 History levetiracetam 1,000 mg tablet 1,000 mg PO BID 09/25/19 10/27/23 History (Keppra) metformin 1,000 mg tablet 1,000 mg PO BID 09/25/19 10/27/23 History multivitamin 1 tab PO QAM 09/25/19 10/27/23 History tramadol 50 mg tablet 50 mg PO Q6H PRN Pain 09/25/19 10/27/23 History vitamins A,C,Q-wddz-jpuxek 2,148 1 tab PO BID 09/25/19 10/27/23 History mcg-113 mg-45 mg-17.4 mg tablet (PreserVision AREDS) oxycodone 5 mg tablet 5 mg PO Q6H PRN pain, severe #20 10/17/19 10/27/23 Rx tabs evolocumab 140 mg/mL subcutaneous 0 mg subcut UD 09/05/22 10/27/23 History pen injector (Makeda Vazquez) oxybutynin chloride 10 mg 10 mg PO BID #180 tabs 10/26/22 10/27/23 Rx tablet,extended release 24 hr Past Med/Surg History Problem List (Updated 11/17/23 @ 13:53 by Sammy Duran MD) 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 History of colon polyps Carotid artery stenosis History of anemia History of kidney stones Urinary incontinence Diabetes History of seizure one per pt- approx 2019 - and no - re occurrence. Unknown etiology per pt-on Keppra. Neuropathy feet History of prostate cancer (~2003) sx and radiation Chronic back pain Deviated septum Arthritis Surgical History History of lumbar spinal fusion History of total replacement of left shoulder joint History of total knee replacement left History of colonoscopy History of prostatectomy approx 2003 History of cardiac cath 2008 no stents Hx of hernia repair Previous back surgery mini laminectomy Family History Father Hypertension Grandmother Diabetes PATERNAL Sister Family hx of colon cancer Social History Smoking Status: Never smoker Second Hand Exposure: Yes (FRIENDS/RESTAURANT IN PAST); Do You Dip or Chew Tobacco: No; Hx Alcohol Use: No Hx Substance Use: No Preferred Language: Albanian Communication Ability: Effective Child Welfare Counselor Required: No Beliefs That Will Affect Care: None marital status: Current Living Situation: Spouse current occupational status: retired Feels Safe at Home: Yes Diet: regular Assistive Devices: Denture - Upper and Other Assistive Devices Comment: reading glasses Review of Systems Review of Systems: Hip and groin pain Physical Exam Physical Exam: Weight 78 kg BMI 24 General: Thin statured male who appears to be his stated age. HEENT: NCAT, EOMI, PERRLA. Neck: Supple without bruits Heart: Regular rate and rhythm no murmurs Lungs: Breath sounds clear and present in all rodriguez Abdomen: Flat soft nontender bowel sounds are positive Extremities: The right hip shows equal leg lengths to the left passive range of motion is 5 to 85 degrees flexion -10 degrees internal rotation all which reproduces groin pain. Neurological and vascular: Intact Results & Data Results & Data Vital Signs (Past 12 Hours) Blood pressure 142/70 Pulse 80
[~2023-11-20 08:38] MED LIST changes: -ACETAMINOPHEN 500 MG TAB PO SCH; +BUPIVACAINE 0.5 % 5 MG/1 ML PF 10ML VIAL ONE; -CEFAZOLIN 1000MG 1,000 MG/7.5 ML SYR IV SCH; -CeleBREX 200 MG CAP PO SCH; -GABAPENTIN 300 MG CAP PO SCH; -LR 15ML/HR IV SCH
[2023-11-20] MEDS ORDERED: PROMETHAZINE HCL 6.25 MG in SODIUM CHLORIDE 0.9% 50 ML IV PRN (09:42)
[2023-11-20] MEDS ORDERED: ONDANSETRON INJ 2 MG/ML 2 ML VIAL IV PRN ×2 (09:42→14:02)
[2023-11-20] MEDS ORDERED: ATROPINE SULFATE 0.1 MG/ML 10ML SYR IV PRN (09:42)
[2023-11-20] MEDS ORDERED: ePHEDrine sulfate 50 MG/ML AMP IV PRN (09:42)
[2023-11-20] MEDS ORDERED: fentaNYL citrate PF 100 MCG/2 ML VIAL IV PRN (09:42)
[2023-11-20] MEDS: traMADol HCL 50 MG TABLET PO SCH (09:47)
[2023-11-20] MEDS: LR 500ML BOLUS, THEN 15ML/HR IV SCH (09:47)
[2023-11-20] MEDS: CeleBREX 200 MG CAP PO SCH (09:47)
[2023-11-20] MEDS: FAMOTIDINE 20 MG TAB PO SCH (09:47)
[2023-11-20] MEDS: METOCLOPRAMIDE HCL 10 MG TABLET PO SCH (09:47)
[2023-11-20] MEDS: ACETAMINOPHEN 500 MG TAB PO SCH ×2 (09:47→14:56)
[2023-11-20] MEDS: GABAPENTIN 300 MG CAP PO SCH (09:48)
[2023-11-20] MEDS ORDERED: MIDAZOLAM HCL 1 MG/ML 2ML VIAL ONE (09:53)
--- NOTE | 2023-11-20 10:13 | History & Physical Bridge Note ---
Date of Service November 20, 2023 History & Physical Bridge Note I have examined the patient, reviewed the History & Physical and in the interval since the performance of the History & Physical I have noted the following changes of clinical significance: no changes noted
[2023-11-20] MEDS: LR 60ML/HR IV SCH (10:25)
[2023-11-20] MEDS: TRANEXAMIC ACID 1,000 MG **IV Pre-op IV SCH (10:27)
[2023-11-20] MEDS: ceFAZolin 2000MG 2,000 MG/15 ML SYR IV SCH ×2 (10:40→18:04)
[2023-11-20] MEDS: ORTHO JOINT ANESTHETIC ONE (11:24)
[2023-11-20] MEDS ORDERED: PROPOFOL IV EMULSION 10 MG/ML 20 ML VIAL IV ONE (11:49)
[2023-11-20] MEDS ORDERED: LIDOCAINE 2% 2 ML VIAL/AMP(20MG/ML) INFIL ONE (11:49)
[2023-11-20] MEDS: ROPIV 0.5% 246mg, Ketorolac 30mg, EPINEPHrine 0.5mg in NSS INFIL SCH (11:50)
[2023-11-20] MEDS ORDERED: PHENYLEPHRINE HCL 10 MG/ML VIAL ONE (11:50)
[2023-11-20] MEDS: TRANEXAMIC ACID 1,000 MG **IV Intra-op IV SCH (11:54)
--- NOTE | 2023-11-20 12:08 | Post Operative Brief Note ---
Immediate Post Op Note Date of Surgery November 20, 2023 Pre & Post Diagnosis Operation Date: 11/20/23 10:40 Pre-Op Diagnosis: Left Hip Degenerative Joint Disease Post-Op Diagnosis: Left Hip Degenerative Joint Disease I identified the patient and participated in the time-out.: Yes Procedure Operation Date: 11/20/23 10:40 Actual Procedures p Left Total Hip Replacement - Anterior Approach, Cemented(Left) - Sammy Duran MD Surgeon Sammy Duran MD Information Systems Auditor none Estimated Blood Loss 100 Findings Consistent with Post-Op Diagnosis
--- NOTE | 2023-11-20 12:23 | Operative Report ---
Post Operative Report Pre & Post Diagnosis Operation Date: 11/20/23 10:40 Pre-Op Diagnosis: Left Hip Degenerative Joint Disease Post-Op Diagnosis: Left Hip Degenerative Joint Disease I identified the patient and participated in the time-out.: Yes Procedure Operation Date: 11/20/23 10:40 Actual Procedures p Left Total Hip Replacement - Anterior Approach, Cemented(Left) - Sammy Duran MD Surgeon Sammy Duran MD Care Transitions Nurse none Estimated Blood Loss 100 Findings Consistent with Post-Op Diagnosis severe degenerative changes with severely inflamed synovial lining Specimens femoral head capsular tissue Complications none Indications components used: [employer] Polar cemented hip system: Acetabulum size 52 with 25 mm dome screw and Oreo Oxinium liner. Femur size 1 standard offset with plus a 28 mm Oxinium inner dual mobility head Description of Procedure following satisfactory spinal anesthesia the patient was supine on the operating room table. The left leg was placed in the traction device in the right leg in the well-leg light. Positioning was confirmed with fluoroscopy. The leg was prepared with ChloraPrep and draped sterilely. A surgical timeout was performed. An anterior approach was performed in the interval between the sartorius and tensor muscles. The circumflex femoral vessels were identified and coagulated. An anterior capsulotomy was performed exposing the arthritic femoral neck and head. Fluoroscopy was used to confirm femoral neck resection level which was completed and the arthritic femoral head was removed. The acetabular self-retaining retractor was placed. Acetabular preparation was completed with excision of redundant capsular tissue and labrum. The acetabulum was reamed under direct vision. A 52 shell was impacted into a healthy bed into a position of 35 to 40 degrees of abduction and 25 degrees of anteversion confirmed with fluoroscopy. A dome screw was placed followed by the Oxinium liner. A small inferior osteophyte was removed. Local anesthetic was placed and the wound was irrigated. The femur was placed into a position of external rotation extension and adduction. The femoral canal was prepared up to a size 1. A trial reduction with a standard offset neck and a +8 inner dual mobility head was performed. Fluoroscopy showed good fit and fill of the proximal canal, very good orientation of the components, and religious of leg length and offset at the level of the lesser trochanter. The hip was dislocated. The trial component removed. A cement restriction plug was placed. Third-generation cement technique was used with Enrike Z be cement to cement the femur. When the cemented hardened the final head dual mobility construct was placed the hip was irrigated and reduced. Fluoroscopy showed similar findings to above and very good cement technique. The wound was irrigated with 500 cc of experience irrigation. There was very little bleeding. The tensor fascia was closed with a running suture of 0 strata fix as well as the deeper subcutaneous fat layers. The most superficial layer was closed with a running subcuticular stitch of 3 oh strata fix. Dermabond Prineo and a negative pressure wound dressing were applied. The patient was returned to his bed in stable condition. I attest to the content of the Intraoperative Record and any orders documented therein. Any exceptions are noted below.
--- NOTE | 2023-11-20 13:22 | Anesthesiology Progress Note ---
Date of Service November 20, 2023 Anesthesia Post Procedure Vital Signs Vital Signs: Temp Pulse Pulse Resp BP Pulse Ox O2 Del Method 11/20/23 13:00 83 15 144/67 H 99 Room Air 11/20/23 12:50 59 L 12 133/43 L 100 Oxymask 11/20/23 12:40 83 15 141/67 H 99 Oxymask 11/20/23 12:30 69 13 143/65 H 100 Oxymask 11/20/23 12:20 68 13 145/89 H 100 Oxymask 11/20/23 12:11 36.1 C L 88 23 113/68 96 Oxymask 11/20/23 09:10 36.7 C 55 L 20 151/81 H 98 Room Air O2 Flow Rate 11/20/23 13:00 11/20/23 12:50 2 11/20/23 12:40 3 11/20/23 12:30 3 11/20/23 12:20 6 11/20/23 12:11 6 11/20/23 09:10 Pain Intensity Left Groin: Pain Intensity: 3 Transfer of Care Handoff Completed per policy Notes Mental Status: alert / awake / arousable Patient Amnestic to Procedure: Yes Nausea / Vomiting: adequately controlled Pain: adequately controlled Airway Patency, RR, SpO2: stable & adequate BP & HR: stable & adequate Hydration State: stable & adequate Neuraxial Anesthesia: was administered and sensory block is resolving Anesthetic Complications: no major complications apparent and Pt Satisfied with anesthetic care
[2023-11-20] MEDS ORDERED: bisacodyL 10 MG SUPP PR PRN (14:02)
[2023-11-20] MEDS ORDERED: METOCLOPRAMIDE HCL INJ 5 MG/ML 2 ML VIAL IV PRN (14:02)
[2023-11-20] MEDS ORDERED: MAGNESIUM HYDROXIDE SUSP 30 ML UDC PO PRN (14:02)
[2023-11-20] MEDS ORDERED: NALOXONE HCL 0.4 MG/1 ML VIAL/CARP IV PRN (14:02)
[2023-11-20] MEDS ORDERED: PHARMACY GLYCEMIC MGMT CONSULT PRN (14:02)
--- NOTE | 2023-11-20 14:21 | Fluoroscopy Report ---
INTRAOPERATIVE RADIOGRAPH CLINICAL HISTORY: Left hip arthroplasty. Fluoro time: 8 seconds Ka,r: 1.21 mGy FINDINGS: A single spot fluoroscopic view of the left hip is obtained. A bipolar left hip arthroplast y is in near anatomic alignment. A single cortical lag screw transfixes the acetabular cup. There is no evidence of acute fracture on this fluoroscopic view. IMPRESSION: Intraoperative image from a left hip arthroplasty procedure as above. Electronically signed by: Noel Dotson M.D. 11/20/2023 2:20 PM
[2023-11-20] MEDS ORDERED: GLUCAGON FOR INJ 1 MG VIAL IM PRN (14:30)
[2023-11-20] MEDS ORDERED: DEXTROSE 50% 50 ML SYRINGE IV PRN (14:30)
[2023-11-20] MEDS ORDERED: CARBOHYDRATES FOR HYPOGLYCEMIA PO PRN (14:30)
[2023-11-20] MEDS ORDERED: GLUCOSE 10 TAB/TUBE PO PRN (14:30)
[2023-11-20] MEDS ORDERED: GLUCOSE 40% GEL 15 GM TUBE PO PRN (14:30)
--- NOTE | 2023-11-20 14:34 | Pharmacy Report ---
Pharmacy Glycemic Short Note 2 - Date of Service November 20, 2023 - Glycemic Short BSG Results (Last 24 hours): 11/20/23 11/20/23 09:07 12:23 POC Glucose 133 H 139 H OUTPATIENT ANTIDIABETIC REGIMEN: * Metformin 1000 mg PO BIDM HbA1c: 7% (10/24/23) ASSESSMENT: * CHELSEA is a 78 year old male POD #0 s/p left total hip replacement * No steroids given in OR * Patient with well-controlled T2DM as an outpatient on metformin only * Fasting blood sugar elevated at 133 mg/dL * Will utilize SC basal/bolus regimen today w/ consideration for restarting metformin only tomorrow PLAN FOR INPATIENT GLYCEMIC CONTROL: * Hold outpatient oral diabetes medications * Basal insulin * Lantus 7 units SC x 1 (~0.1 unit/kg) * Bolus insulin * NovoLog per scale ACHS or Q6hrs while NPO * Goal Range: Low 110 mg/dL - High 140 mg/dL * Correction Factor: 30 mg/dL/unit * Nutritional / Prandial insulin per carb ratio of 1 unit per 10 grams CHO consumed
[2023-11-20] MEDS: SODIUM CHLORIDE 0.9% 1,000 ML IV SCH (14:57)
[2023-11-20] MEDS: INSULIN ASPART PER UNIT CHARGE SC SCH (15:00)
[2023-11-20] MEDS: LANTUS PER UNIT CHARGE SC ONE (15:03)
[2023-11-20] MEDS: oxyCODONE HCL IR 5 MG TAB (IMMEDIATE RELEASE) PO PRN ×2 (15:42→20:10)
[2023-11-20] MEDS: GABAPENTIN 600 MG TAB PO SCH (20:09)
[2023-11-20] MEDS: FERROUS SULFATE 325 MG TAB PO SCH (20:09)
[2023-11-20] MEDS: ASPIRIN 81 MG ECTAB PO SCH (20:09)
[2023-11-20] MEDS: SENNA 8.6 MG TAB PO SCH (20:09)
[2023-11-20] MEDS: OXYBUTYNIN CHLORIDE XL 5 MG TABCR PO SCH (20:10)
[2023-11-20] MEDS: DOCUSATE SODIUM 100 MG CAP PO SCH (20:10)
[2023-11-20] MEDS: levETIRAcetam 500 MG TAB PO SCH (20:10)
[2023-11-20] MEDS ORDERED: DOCUSATE SODIUM 100 MG CAP PO SCH (21:00)
[2023-11-20] MEDS ORDERED: metFORMIN HCL 500 MG TAB PO SCH (21:00)
[2023-11-21 07:11] VITALS: BP 91/48; PULSE 79; RESP 16; TEMP 99.5; O2SAT 96
[2023-11-21 07:12] LABS: Basophils # (auto) 0.04 K/uL (0.00-0.20); Basophils % (auto) 0.3 %; Eosinophils # (auto) 0.17 K/uL (0.00-0.50); Eosinophils % (auto) 1.3 %; Hemoglobin 8.6 g/dl (14.0-18.0); Immature Granulocytes # (auto) 0.06 K/uL (0.01-0.20); Immature Granulocytes % (auto) 0.5 %; Lymphocytes # (auto) 0.73 K/uL (1.20-3.40); Lymphocytes % (auto) 5.7 %; Mean Corpuscular Hemoglobin 28.4 pg (25.0-34.0); Mean Corpuscular Hgb Conc 33.1 g/dL (32.0-36.0); Mean Corpuscular Volume 85.8 fL (80.0-100.0); Mean Platelet Volume 12.1 fL (9.4-12.4); Monocytes # (auto) 0.73 K/uL (0.11-0.59); Monocytes % (auto) 5.7 %; Neutrophils # (auto) 11.01 K/uL (1.40-6.50); Neutrophils % (auto) 86.5 %; Platelet Count 144 K/uL (130-400); RDW Coefficient of Variation 13.2 % (11.5-14.5); RDW Standard Deviation 40.6 fL (36.4-46.3); Red Blood Count 3.03 M/uL (4.70-6.10); White Blood Count 12.74 K/ul (4.8-10.8)
[2023-11-21] MEDS: LOSARTAN POTASSIUM 50 MG TAB PO SCH (07:18)
[2023-11-21] MEDS: ASCORBIC ACID 500 MG TAB PO SCH (07:18)
[2023-11-21] MEDS: FOLIC ACID 1 MG TAB PO SCH (07:19)
[2023-11-21] MEDS: CEROVITE ADV FORMULA TAB PO SCH (07:19)
[2023-11-21] MEDS: MULTIVITAMIN TAB PO SCH (07:19)
[2023-11-21] MEDS: CYANOCOBALAMIN (B-12) 500 MCG TABLET PO SCH (07:19)
[2023-11-21 07:28] LABS: BUN Creatinine Ratio 18.5 (10-20); Creatinine Clr Calc Pharmacy 42.2 ml/min; Est GFR (African American) 50.2 ml/min; Est GFR (Non-African American) 43.3 ml/min; Potassium 4.6 mmol/L (3.5-5.1)
--- NOTE | 2023-11-21 07:41 | Orthopedic Progress Note ---
Date of Service November 21, 2023 Assessment & Plan (1) Degenerative joint disease of left hip: Plan: patient is doing well. He states that his pain is now controlled. He appears to be ready for discharge to home. He will be evaluated by OT PT this morning but as long as he is cleared he is discharged to home where he will be followed by [facility]. We did review his medication protocol this morning as well as hip precautions activities and wound management. (2) Acute blood loss anemia: Plan: Patient is mildly hyper hypotensive but not tachycardic. We did hold his blood pressure this morning and he is advised to hold his blood pressure medicine until his pressure normalizes. He has no orthostasis should be okay for discharge to home Admission and Anticipated Discharge Date Admission Date: November 20, 2023 Subjective Postoperative day #1 left total hip replacement Patient offers no complaints today. He was able to be up to the bathroom twice last night with some assistance. He denies any dizziness or lightheadedness. His pain is well-controlled he denies nausea or vomiting. Physical Exam Physical Exam: Patient is examined at the bedside. He is awake alert and oriented x 3. His hip is located his dressing is clean dry and intact. His thigh and calf are soft and nontender. He is neurologically and vascularly intact. Results & Data Vital Signs (Past 12 Hours) Vital Signs Temp Pulse Resp BP BP Pulse Ox O2 Del Method 11/21/23 07:08 37.5 C 79 16 95/54 L 91/48 L 96 Room Air 11/21/23 02:53 37.3 C 92 H 18 113/52 L 93 Room Air 11/20/23 23:00 36.8 C 76 16 159/73 H 94 Room Air Laboratory Results Hemoglobin 8.6 preoperatively was 11
[2023-11-21] MEDS ORDERED: NON-FORMULARY MEDICATION (Multivitamin Tablet) PO SCH (09:00)
[2023-11-21] MEDS ORDERED: CHOLECALCIFEROL 25 MCG (1000 UNITS) TAB PO SCH (09:00)
[2023-11-21] MEDS ORDERED: OXYBUTYNIN CHLORIDE XL 5 MG TABCR PO SCH (09:00)
[2023-11-21] MEDS: metFORMIN HCL 500 MG TAB PO SCH (09:46)
--- NOTE | 2023-11-23 14:24 | Discharge Summary ---
Date of Service November 23, 2023 Admission HPI Per Admitting Provider Patient is a 78-year-old male with greater than 6-month history of left hip and groin pain. The pain is associated with marked decrease in range of motion. The patient cannot tie his shoe and sock at this time. He has limited standing and walking tolerance and requires a cane for most activities of daily living. Radiographically he has evidence of moderate to advanced degenerative joint disease with moderate acetabular dysplasia and large femoral head cam lesion. He is a diabetic his A1c has been in the mid sixes to no greater than 7. He also has a history of extensive spine surgery with a broken screw but his pain is all hip and groin and in consultation with spine is felt to be the hip as the primary pain generator. He is admitted for elective hip replacement for cemented total hip replacement. Admission Exam Per Admitting Provider Physical Exam: Weight 78 kg BMI 24 General: Thin statured male who appears to be his stated age. HEENT: NCAT, EOMI, PERRLA. Neck: Supple without bruits Heart: Regular rate and rhythm no murmurs Lungs: Breath sounds clear and present in all rodriguez Abdomen: Flat soft nontender bowel sounds are positive Extremities: The right hip shows equal leg lengths to the left passive range of motion is 5 to 85 degrees flexion -10 degrees internal rotation all which reproduces groin pain. Neurological and vascular: Intact Principal Diagnosis Right Hip Osteoarthritis Discharge Data Allergies Allergy/AdvReac Type Severity Reaction Status Date / Time No Known Allergies Allergy Verified 11/20/23 09:03 Procedures Performed Operation Date: 11/20/23 10:40 Actual Procedures p Left Total Hip Replacement - Anterior Approach, Cemented(Left) - Sammy Duran MD Ordered Studies 11/20/23 10:40 FL hip LT 1V Routine Hospital Course (1) Degenerative joint disease of left hip: Patient: JANUSZ SZYMANSKI Admit Date: 11/20/23 MR#: [id number] Att Phy: Sammy Duran MD Acct ID: [id number] Lissa Phy: Ash Ackerman M.D. Date: 1945 Fam Phy: Age: 78 Location: 3N Sex: M Room/Bed: [facility] cc: ~ *NOTICE TO RECEIVING CONSTITUTION PARTY/AGENCY This information is strictly Confidential and protected under [place] law. [place] law prohibits you from making any further disclosure of this information unless further disclosure is expressly permitted by the written consent of the person to whom it pertains or is authorized by law. A general authorization for the release of medical or other information is not sufficient for this purpose. Hospital accepts no responsibility if the information is made available to any other person, INC LUDING THE PATIENT. Date of Service November 21, 2023 Assessment & Plan (1) Degenerative joint disease of left hip: Plan: patient is doing well. He states that his pain is now controlled. He appears to be ready for discharge to home. He will be evaluated by OT PT this morning but as long as he is cleared he is discharged to home where he will be followed by [facility]. We did review his medication protocol this morning as well as hip precautions activities and wound management. (2) Acute blood loss anemia: Plan: Patient is mildly hyper hypotensive but not tachycardic. We did hold his blood pressure this morning and he is advised to hold his blood pressure medicine until his pressure normalizes. He has no orthostasis should be okay for discharge to home Admission and Anticipated Discharge Date Admission Date: November 20, 2023 Subjective Postoperative day #1 left total hip replacement Patient offers no complaints today. He was able to be up to the bathroom twice last night with some assistance. He denies any dizziness or lightheadedness. His pain is well-controlled he denies nausea or vomiting. Physical Exam Physical Exam: Patient is examined at the bedside. He is awake alert and oriented x 3. His hip is located his dressing is clean dry and intact. His thigh and calf are soft and nontender. He is neurologically and vascularly intact. Results & Data Vital Signs (Past 12 Hours) Vital Signs Temp Pulse Resp BP BP Pulse Ox O2 Del Method 11/21/23 07:08 37.5 C 79 16 95/54 L 91/48 L 96 Room Air 11/21/23 02:53 37.3 C 92 H 18 113/52 L 93 Room Air 11/20/23 23:00 36.8 C 76 16 159/73 H 94 Room Air Laboratory Results Hemoglobin 8.6 preoperatively was 11 Signed By: <Electronically signed by Sammy Duran MD> 11/21/23 0740 Created: 11/21/23 0738 (2) Acute blood loss anemia: Patient is mildly hyper hypotensive but not tachycardic. We did hold his blood pressure this morning and he is advised to hold his blood pressure medicine until his pressure normalizes. He has no orthostasis should be okay for discharge to home Total Time Total Time Spent Total Time Spent (In Minutes): 5 Discharge Plan Discharge Items Patient Disposition: Home - Home Health Services Reason For Visit: Osteoarthritis Left Hip Discharge Diagnosis: Osteoarthritis left hip Activity: Per Instructions section Exercise/Sports: None Weightbearing: Full weightbearing Non-emergency contact: Surgeon Call non-emergency contact if: you have any medication questions, your pain is not controlled, your temperature is above 101.5, your wound has increased redness and your wound has increased drainage Follow-up/Referrals: Sammy Duran MD [Surgeon] - ( follow-up with Dr. Duran or his PA in 2 weeks from the day of surgery for her first postoperative visit.) Ash Ackerman [Primary Care Provider] - [facility] [Non-Staff] - (as per surgeon's office ) Diet: Carb Consistent or DM2 Addtl Attending Provider Instructions: DR. CHAVEZ POST-OP INSTRUCTIONS FOR TOTAL HIP ARTHROPLASTY PLEASE REVIEW PRIOR TO SURGERY Day of Surgery You will be admitted and meet the nursing and anesthesia team. Dr. Duran will see you and sign your operative side. Anesthesia will place your spinal anesthetic in the pre-op area Your surgery will be performed and last approximately 1 2 hours. Upon waking, you will notice a dressing and ice pack on your hip. You will remain in the recovery room for 1 2 hours, then be transferred to your room in the ambulatory surgical area if you are to go home the same day as your surgery or transferred to the orthopedic floor if you will be staying overnight. Most of Dr. Chavez total hip patients go home the same day as surgery. This depends on how well you feel. Patients generally seem to feel better in their own home environment, and the risk of exposure to bad bugs is much lower. (Your post-operative medications will be sent to your pharmacy approximately 1-2 days prior to your procedure) Day 1 post-op (if you have an overnight stay in the hospital) You will have bloodwork drawn in the morning Physical therapy will evaluate you in the morning. You will start getting out of bed and ambulating with a walker. They will instruct you on hip motion exercises. Use your cold packs as instructed. This will decrease swelling and minimize pain. nutrition services associate will discuss your discharge plan. Discharge will generally be around 11am Day 1 post-op (all patients) You will be taking Aspirin 81mg twice for 4 weeks to decrease the risk of a blood clot. You will most likely have a drain and a JERRI (superficial wound VAC) dressing post-operatively. This will keep your incision dry as well as aid in early healing. The batteries will wear out and the VAC will lose suction around day 6 - 7 post-op. At that time, you may turn off the device and disconnect from the dressing. You must keep the dressing on until your first post- operative visit with Dr. Duran. If the dressing appears to be saturated, please call our office. Day 2 14 post-op You will have a home nurse visit to assess your status and remove your drain on post-op day 2. You are permitted to shower immediately with the VAC. Do not soak the dressing let the shower flow on your opposite side, and pat dry the plastic. Once the dressing has been removed, you may shower normally with the incision exposed. Do not rub the area simply let soapy water run over the incision and lightly pat dry. Therapy will begin on post-op day 3. Your therapy prescription will be sent to your home therapy company/therapist You should continue doing your home exercises Week 2 post-op and forward You will have your first post-op appointment 2 weeks after surgery which should have been scheduled for you by our office. This appointment will be to check your incision, progression of therapy and pain control. Xrays will be taken to evaluate the prosthesis. You will continue to use a cane or a walker until you feel safe enough to stop using it. You will have a 6-week post-op appointment which should have been scheduled for you by our office. Xrays will be taken to evaluate the prosthesis. You will continue to advance range of motion. By 3 to 4 months after surgery, you should have almost full range of motion and may resume most activities. You may have some pain around the hip with certain activities this is completely normal. You will be scheduled for a 1 year post-op appointment to assess your outcome (sooner if Dr. Duran feels necessary). Pain: The immediate post-op period after hip replacement surgery can be painful. However, the degree and frequency of the pain is generally much less than knee replacement surgery. You should take your pain medicine as you need it, especially prior to physical therapy and bedtime. Your pain will decrease and you may transition to a milder pain medicine (with less side effects, such as Tylenol) as soon as possible. It is common to have pain at night that interferes with sleep this can last for several months. Pain medicines can cause nausea and constipation do not take more than you need. You may be prescribed one or more of the following MEDICATIONS : 1. Celebrex this controls inflammation and makes pain medications mor effective it will be taken once or twice a day 2. Tylenol a pain medicine that can help to decrease your pain you should take 1000mg three times a day 3. Tramadol a pain medicine that can be taken every 4-6 hours (instead of Oxycodone) as needed to control your pain 4. Oxycodone a VERY strong pain medicine that can be taken every 4-6 hours (instead of Tramadol) as needed to control your pain. This medication has the most side effects and is usually not necessary for hip replacements. 5. Aspirin 81mg blood thinning medication to help minimize the risk of development of blood clots unfortunate side effects of pain medicine include nausea and constipation if you experience these issues or have any questions about your post-op medicat ions, call [facility] [place] for assistance/advice on how to manage these issues Hip replacement surgery does not require a lot of aggressive physical therapy. Learning to walk safely and obeying hip precautions are most important. While in the hospital, you will be shown a series of home exercises you should perform these exercises 3 4 times daily in addition to physical therapy. After the completion of home therapy (approx.. 2 weeks), most therapy exercises can be done on your own. You should walk several times a day. Try not to be standing for more than an hour at a time during the first 4 weeks post-op as you may experience more swelling. If you develop swelling, you need to elevate your legs/feet at or above the level of your heart. You may progress from a walker to a cane to walking independently as you feel comfortable. Unless it is an emergency, YOUR ARE NOT PERMITTED TO HAVE ANY DENTAL CLEANING/WORK UNTIL 3 MONTHS AFTER SURGERY. You will be required to take an antibiotic prior to any dental cleaning or dental work in order to prevent your joint prothesis from getting infected. This medication is a one time per visit dose to be taken one hour prior to appointment. You may call our office for this prescription or your dentist may be willing to prescribe the medication. Remember to contact [facility] [place] if you develop any signs of infection which include increased swelling, pain, redness, drainage from incision, warmth, fever, chills or severe pain unrelieved by pain medication. If you develop any chest pain or shortness of breath, you should proceed immediately to the nearest Emergency Room. It is normal to run a low-grade fever after surgery. If your fever is consistent at 101.0 or higher, you will n eed to contact the office. Pending Studies at Discharge: No Stand-Alone Forms: [facility] Medications and DC Order Prescriptions: Continued oxybutynin chloride 10 mg tablet extended release 24hr 10 mg PO BID Qty: 180 3RF Repatha SureClick 140 mg/mL pen injector 0 mg subcut UD Patient Comments: once every 2 weeks , last one given around 10/16/23. metformin 1,000 mg Tablet 1,000 mg PO BID gabapentin 300 mg Capsule 600 mg PO BID levetiracetam [Keppra] 1,000 mg Tablet 1,000 mg PO BID multivitamin Tablet 1 tab PO QAM PreserVision AREDS [id number] [id number] Tablet 1 tab PO BID docusate sodium [Stool Softener] 100 mg Capsule 100 mg PO BID ascorbic acid (vitamin C) [Vitamin C] 1,000 mg Tablet 1,000 mg PO QAM ferrous sulfate [iron] 325 mg (65 mg iron) Tablet 325 mg PO BID folic acid 1 mg Tablet 1 mg PO QAM cholecalciferol (vitamin D3) [Vitamin D3] 25 mcg (1,000 unit) Capsule 25 mcg PO QAM cyanocobalamin (vitamin B-12) 1,000 mcg Capsule 1,000 mcg PO QAM irbesartan 300 mg Tablet 300 mg PO QAM oxycodone 5 mg tablet 5 mg PO Q6H PRN (Reason: pain, severe) Qty: 20 0RF Discontinued tramadol 50 mg Tablet 50 mg PO Q6H PRN (Reason: Pain) Arsalan/Other Patient Handouts: Total Hip Replacement Admission Data Admit Date/Time: 11/20/23 12:15 Attending Provider: Sammy Duran Admit Provider: Sammy Duran Primary Care Provider: Ash Ackerman Other Providers: [facility] Other Interventions: Discharge Summary Assessment (RN) Last Done: 11/21/23 09:22
== END 2023-11-21 13:15 | disposition home health service (06) ==
LOC: 3N 08:38 → ASU 08:38

== ENCOUNTER 2025-01-08 05:53 | Observation (INO) ==
--- NOTE | 2024-12-16 12:13 | PAT Medication Instructions ---
Medication Instructions Date of Service December 16, 2024 Home Medications Medication Instructions Recorded oxycodone 5 mg tablet 5 mg PO Q6H PRN pain, severe #20 10/17/19 tabs oxybutynin chloride 10 mg 10 mg PO BID 30 days #60 tabs 04/01/24 tablet,extended release 24 hr ascorbic acid (vitamin C) 1,000 mg tablet (Vitamin C) 1,000 mg PO QAM cholecalciferol (vitamin D3) 25 mcg (1,000 unit) capsule (Vitamin D3) 25 mcg PO QAM cyanocobalamin (vitamin B-12) 1,000 mcg capsule 1,000 mcg PO QAM docusate sodium 100 mg capsule (Stool Softener) 100 mg PO BID ferrous sulfate 325 mg (65 mg iron) tablet (iron) 325 mg PO BID folic acid 1 mg tablet 1 mg PO QAM gabapentin 300 mg capsule (Neurontin) 600 mg PO BID irbesartan 300 mg tablet (Avapro) 300 mg PO QAM levetiracetam 1,000 mg tablet (Keppra) 1,000 mg PO BID metformin 1,000 mg tablet 1,000 mg PO BID vitamins A,C,P-pfce-jcfcrw 2,148 mcg-113 mg-45 mg-17.4 mg tablet (PreserVision AREDS) 1 tab PO BID oxycodone 5 mg tablet 5 mg PO Q6H PRN evolocumab 140 mg/mL subcutaneous pen injector (Repatha SureClick) 0 mg subcut MONTHLY oxybutynin chloride 10 mg tablet,extended release 24 hr 10 mg PO BID aspirin 81 mg tablet 81 mg PO QAM tramadol 50 mg tablet 50 mg PO DAILY PRN Continue as directed tramadol 50 mg tablet 50 mg PO DAILY PRN(if needed) ASK your prescriber and surgeon evolocumab 140 mg/mL subcutaneous pen injector (Repatha SureClick) 0 mg subcut MONTHLY aspirin 81 mg tablet 81 mg PO QAM STOP taking 2 weeks before surgery (or as soon as possible if surgery is within 2 weeks) vitamins A,C,Q-nziu-byzaou 2,148 mcg-113 mg-45 mg-17.4 mg tablet (PreserVision AREDS) 1 tab PO BID DO NOT take the morning of surgery ascorbic acid (vitamin C) 1,000 mg tablet (Vitamin C) 1,000 mg PO QAM cholecalciferol (vitamin D3) 25 mcg (1,000 unit) capsule (Vitamin D3) 25 mcg PO QAM cyanocobalamin (vitamin B-12) 1,000 mcg capsule 1,000 mcg PO QAM docusate sodium 100 mg capsule (Stool Softener) 100 mg PO BID ferrous sulfate 325 mg (65 mg iron) tablet (iron) 325 mg PO BID folic acid 1 mg tablet 1 mg PO QAM irbesartan 300 mg tablet (Avapro) 300 mg PO QAM metformin 1,000 mg tablet 1,000 mg PO BID oxybutynin chloride 10 mg tablet,extended release 24 hr 10 mg PO BID Take morning of surgery With a small sip of water, OTHERWISE NOTHING TO EAT OR DRINK AFTER MIDNIGHT: gabapentin 300 mg capsule (Neurontin) 600 mg PO BID levetiracetam 1,000 mg tablet (Keppra) 1,000 mg PO BID oxycodone 5 mg tablet 5 mg PO Q6H PRN(if needed) Take evening before surgery docusate sodium 100 mg capsule (Stool Softener) 100 mg PO BID ferrous sulfate 325 mg (65 mg iron) tablet (iron) 325 mg PO BID gabapentin 300 mg capsule (Neurontin) 600 mg PO BID levetiracetam 1,000 mg tablet (Keppra) 1,000 mg PO BID metformin 1,000 mg tablet 1,000 mg PO BID oxycodone 5 mg tablet 5 mg PO Q6H PRN(if needed) oxybutynin chloride 10 mg tablet,extended release 24 hr 10 mg PO BID Other Notes If you have any questions please call us at [phone] or [phone] or [phone] or [phone]
--- NOTE | 2024-12-18 14:48 | Anesthesiology Consultation ---
Date of Service December 18, 2024 Assessment & Plan (1) Encounter for pre-operative examination: - check BSG am DOS. - Case discussed in detail with Dr. Muse who advised patient is acceptable to proceed. - cardiology office visit 07/24/24: "...feeling stable from a cardiac pers pective...25-49% stenosis of proximal right ICA and 25-49% stenosis of proximal left ICA...continue medications...9 month follow up..." - Outpatient joint assessment: Patient is currently scheduled for inpatient pathway. If re-evaluated and patient/surgeon requests outpatient pathway, patient is not recommended candidate for outpatient joint program. Chart Review Chart Review: Acceptable Risk for Surgery and Patient seen in Pre Admission Testing Teaching & Discussion Pre-Anesthesia Teaching/Discussion Notes: Instructed NPO after midnight before surgery, except medications with 15 cc of water. Medication instructions provided according to the PAT guidelines. History Surgery Operation Date: 01/08/25 10:10 Proposed Procedures p Right Reverse Total Shoulder Arthroplasty - Arnie Hardwick MD Height/Weight Height: 5 ft 11 in Weight: 79.3 kg Allergies Allergy/AdvReac Type Severity Reaction Status Date / Time No Known Allergies Allergy Verified 12/18/24 10:59 Medications Home Medications Medication Instructions Recorded Confirmed Last Taken ascorbic acid (vitamin C) 1,000 mg 1,000 mg PO QAM 09/25/19 12/18/24 11/19/23 11:00 tablet (Vitamin C) cholecalciferol (vitamin D3) 25 25 mcg PO QAM 09/25/19 12/18/24 11/19/23 11:00 mcg (1,000 unit) capsule (Vitamin D3) cyanocobalamin (vitamin B-12) 1,000 mcg PO QAM 09/25/19 12/18/24 11/19/23 11:00 1,000 mcg capsule docusate sodium 100 mg capsule 100 mg PO BID 09/25/19 12/18/24 11/19/23 11:00 (Stool Softener) ferrous sulfate 325 mg (65 mg 325 mg PO BID 09/25/19 12/18/24 11/19/23 11:00 iron) tablet (iron) folic acid 1 mg tablet 1 mg PO QAM 09/25/19 12/18/24 11/19/23 11:00 gabapentin 300 mg capsule 600 mg PO BID 09/25/19 12/18/24 11/20/23 07:00 (Neurontin) irbesartan 300 mg tablet (Avapro) 300 mg PO QAM 09/25/19 12/18/24 11/19/23 11:00 levetiracetam 1,000 mg tablet 1,000 mg PO BID 09/25/19 12/18/24 11/20/23 07:00 (Keppra) metformin 1,000 mg tablet 1,000 mg PO BID 09/25/19 12/18/24 11/19/23 11:00 vitamins A,C,O-yizz-jhhaqa 2,148 1 tab PO BID 09/25/19 12/18/24 11/19/23 22:30 mcg-113 mg-45 mg-17.4 mg tablet (PreserVision AREDS) oxycodone 5 mg tablet 5 mg PO Q6H PRN pain, severe #20 10/17/19 12/18/24 11/19/23 12:00 tabs evolocumab 140 mg/mL subcutaneous 0 mg subcut MONTHLY 09/05/22 12/18/24 11/18/23 pen injector (Makeda Vazquez) aspirin 81 mg tablet 81 mg PO QAM 12/16/24 12/18/24 Unknown tramadol 50 mg tablet 50 mg PO DAILY PRN Pain 12/16/24 12/18/24 Unknown oxybutynin chloride 10 mg 10 mg PO DAILY 90 days #90 tabs 12/18/24 12/18/24 Unknown tablet,extended release 24 hr zolpidem 12.5 mg tablet,extended mg PO PRN 12/18/24 12/18/24 Unknown release,multiphase Past Medical History Medical History Arthritis Carotid artery stenosis Follows with [facility] - Cardiology Dr Olea Chronic back pain Deviated septum Diabetes mellitus, type 2 History of anemia possibly hx blood transfusion - oral supplement History of colon polyps History of kidney stones passed on own History of prostate cancer (~2003) sx and radiation - [facility] History of seizure one per pt- approx 2018 - and no reoccurrence. Unknown etiology per pt - on Keppra. Follows with [facility] Dr Bansal Hypertension controlled, stable per pt Macular degeneration early stage/no progression over last 2 yrs. Neuropathy feet Urinary incontinence Patient denies h/o stroke, heart attack, heart failure, or blood clots/DVTs. Exercise / Class Metabolic Activity III < 4 Walking/Shop/Light housework (ambulates with cane, denies chest disc omfort or shortness of breath with usual activities) Past Family History Family History Father Hypertension Grandmother Diabetes PATERNAL Sister Family hx of colon cancer Past Surgical History Surgical History History of bilateral cataract extraction History of cardiac cath 2008 no stents - Follows with [facility] - Cardiology Dr Olea History of colonoscopy History of lumbar spinal fusion Hardware present History of prostatectomy approx 2003 History of tooth extraction Upper/Lower Dentures History of total knee replacement left History of total left hip arthroplasty (11/20/23) History of total replacement of left shoulder joint "I was bleeding down my whole left side. I had black and blue down my whole left side" as per patient (Post-op) Hx of hernia repair Previous back surgery mini laminectomy Past Anesthesia History No Hx of Anesthesia Complications and No Family Hx of Anesthesia Complications History of PONV No Hx of PONV and Hx of Motion Sickness Social History Smoking Status: Never smoker Do You Dip or Chew Tobacco: No Hx Alcohol Use: No Hx Substance Use: No substance use type: does not use Review of Systems Patient denies chest pain, shortness of breath, dyspnea on exertion, snoring, witnessed apneas, reflux, fever, chills, cough, wheezing, or palpitations. Physical Exam Vital Signs Vitals BP 123/69 P 56 TEMP 36.9 SP02 95% on RA RESP 18 Physical Patient resting comfortably in chair in no acute distress, alert and oriented, responding appropriately throughout visit Full cervical extension range of motion without pain TMD 3.5 finger breadths Mallampati Score 2 Dentition: intact, denies chipped or loose teeth, caps/crowns, implants or bridges Lungs: normal respiratory effort. Good air movement, clear throughout to auscultation, no adventitious breath sounds Cardiac: regular rate and rhythm, no murmurs noted Carotid arteries: negative bruit bilat Lab Results Anesthesia Preop Results Results Anesthesia Widget: WBC 5.96 K/ul (4.8-10.8) 12/18/24 Hgb 11.4 g/dl (14.0-18.0) L 12/18/24 Hct 35.7 % (42.0-52.0) L 12/18/24 Plt 163 K/uL (130-400) 12/18/24 Na 139 mmol/L (136-145) 12/18/24 K 4.5 mmol/L (3.5-5.1) 12/18/24 Cl 104 mmol/L (98-107) 12/18/24 CO2 28 mmol/L (21-32) 12/18/24 BUN 18 mg/dl (6-23) 12/18/24 Creat 1.24 mg/dl (0.6-1.4) 12/18/24 Glucose Level 102 mg/dl (70-99(Fasting)) H 12/18/24 PT 11.0 Seconds (9.0-12.0) 12/18/24 PTT 29 Seconds (21-31) 12/18/24 INR 1.0 (0.9-1.1) 12/18/24 HA1c 6.6 % (4.5-5.6) H 12/18/24 Urine Color Yellow 12/18/24 Urine Appearance Clear (Clear) 12/18/24 Urine pH 6.0 (4.5-7.5) 12/18/24 Urine Specific Kingsley 1.007 (1.000-1.030) 12/18/24 Urine Protein Negative (Negative) 12/18/24 Urine Glucose (UA) Negative (Negative) 12/18/24 Urine Ketones Negative (Negative) 12/18/24 Urine Blood Negative (Negative) 12/18/24 Urine Nitrite Negative (Negative) 12/18/24 Urine Bilirubin Negative (Negative) 12/18/24 Urine Urobilinogen Negative (Negative) 12/18/24 Urine Leukocyte Esterase Negative (Negative) 12/18/24 Blood Type A Positive 12/18/24 Antibody Screen NEGATIVE 12/18/24 Testing Electrocardiogram Date: 12/18/24 Sinus bradycardia, rate 54 bpm Cannot rule out inferior infarct, cited on or before 10/24/23 EKG Chest X-Ray Date: 12/18/24 Normal chest x-ray Echocardiogram Date: 07/11/24 LVEF 56% Stage 1 LV diast. dysfx Dilated LV Mild mitral regurgitation Stress Test Date: 04/28/22 No evidence of ischemia by ECG criteria No significant dysrhythmia LVEF 65% No gross segmental wall motion abnormalities Other Testing Carotid doppler 07/12/24 25-49% stenosis bilat ICAs
--- NOTE | 2025-01-07 18:27 | History & Physical Report ---
Date of Service January 07, 2025 Assessment & Plan (1) Rotator cuff arthropathy of right shoulder: Plan: End-stage rotator cuff arthropathy. Patient has pseudoparalysis. Best option is reverse total shoulder arthroplasty. Patient had successful left shoulder reverse total shoulder arthroplasty. (2) History of reverse total replacement of left shoulder joint: History of Present Illness Chief Complaint: Right shoulder pain and weakness dysfunction Primary Care Provider: Arnie Hardwick MD 79-year-old male with chronic right shoulder pain and weakness failed conservative management. History left shoulder replacement 2016 with good outcome. Patient denies headaches, sweats, fevers, chills, double vision, blurred vision, cough, sore throat, dysphagia, chest pain, sob, wheezing, n/v/d, fatigue, mood disorders. ROS positive for foot neuropathy female simple complex seizure chronic low back pain osteoarthritis back Allergies Allergy/AdvReac Type Severity Reaction Status Date / Time No Known Allergies Allergy Verified 12/18/24 10:59 Home Medications Medication Instructions Recorded Confirmed Type ascorbic acid (vitamin C) 1,000 mg 1,000 mg PO QAM 09/25/19 12/18/24 History tablet (Vitamin C) cholecalciferol (vitamin D3) 25 25 mcg PO QAM 09/25/19 12/18/24 History mcg (1,000 unit) capsule (Vitamin D3) cyanocobalamin (vitamin B-12) 1,000 mcg PO QAM 09/25/19 12/18/24 History 1,000 mcg capsule docusate sodium 100 mg capsule 100 mg PO BID 09/25/19 12/18/24 History (Stool Softener) ferrous sulfate 325 mg (65 mg 325 mg PO BID 09/25/19 12/18/24 History iron) tablet (iron) folic acid 1 mg tablet 1 mg PO QAM 09/25/19 12/18/24 History gabapentin 300 mg capsule 600 mg PO BID 09/25/19 12/18/24 History (Neurontin) irbesartan 300 mg tablet (Avapro) 300 mg PO QAM 09/25/19 12/18/24 History levetiracetam 1,000 mg tablet 1,000 mg PO BID 09/25/19 12/18/24 History (Keppra) metformin 1,000 mg tablet 1,000 mg PO BID 09/25/19 12/18/24 History vitamins A,C,X-qyfl-vkcptr 2,148 1 tab PO BID 09/25/19 12/18/24 History mcg-113 mg-45 mg-17.4 mg tablet (PreserVision AREDS) oxycodone 5 mg tablet 5 mg PO Q6H PRN pain, severe #20 10/17/19 12/18/24 Rx tabs evolocumab 140 mg/mL subcutaneous 0 mg subcut MONTHLY 09/05/22 12/18/24 History pen injector (Lazarustrent Taylor) aspirin 81 mg tablet 81 mg PO QAM 12/16/24 12/18/24 History tramadol 50 mg tablet 50 mg PO DAILY PRN Pain 12/16/24 12/18/24 History oxybutynin chloride 10 mg 10 mg PO DAILY 90 days #90 tabs 12/18/24 12/18/24 Rx tablet,extended release 24 hr zolpidem 12.5 mg tablet,extended mg PO PRN 12/18/24 12/18/24 History release,multiphase Past Med/Surg History Problem List (Updated 01/07/25 @ 18:37 by Arnie Hardwick MD) 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 History of colon polyps Carotid artery stenosis Follows with [facility] - Cardiology Dr Olea History of anemia possibly hx blood transfusion - oral supplement History of kidney stones passed on own Urinary incontinence History of seizure one per pt- approx 2018 - and no reoccurrence. Unknown etiology per pt - on Keppra. Follows with [facility] Neurology Dr Bansal Neuropathy feet History of prostate cancer (~2003) sx and [facility] - [facility] Chronic back pain Deviated septum Arthritis Surgical History History of tooth extraction Upper/Lower Dentures History of bilateral cataract extraction History of total left hip arthroplasty (11/20/23) History of lumbar spinal fusion Hardware present History of total replacement of left shoulder joint "I was bleeding down my whole left side. I had black and blue down my whole left side" as per patient (Post-op) History of total knee replacement left History of colonoscopy History of prostatectomy approx 2004 History of cardiac cath 2008 no stents - Follows with [facility] - Cardiology Dr Olea Hx of hernia repair Previous back surgery mini laminectomy Family History Father Hypertension Grandmother Diabetes PATERNAL Sister Family hx of colon cancer Social History Smoking Status: Never smoker Second Hand Exposure: No; Do You Dip or Chew Tobacco: No; Tobacco Cessation Education Requested by Patient: No Hx Alcohol Use: No Hx Substance Use: No Preferred Language: Urdu Communication Ability: Effective Outsole Rounder Required: No Beliefs That Will Affect Care: None marital status: Current Living Situation: Spouse current occupational status: retired Other Information That Helps Us Care for You: No Feels Safe at Home: Yes Safety Concerns: Feels Safe At This Time Diet: regular Assistive Devices: Cane, Denture - Upper, Denture - Lower, Glasses and Walker Review of Systems All systems reviewed & are unremarkable except as noted in HPI & below Physical Exam Constitutional: WD/WN, vitals as above Respiratory: normal respiratory effort; no respiratory distress Cardiovascular: Rate/Rhythm: regular rate and regular rhythm Musculoskeletal: Right shoulder weakness and pseudoparalysis with weakness and limited external rotation ability with 30 degrees of flexion actively with 170 degrees of passive flexion. Subacromial crepitation and positive belly press test Zavaleta and Neer impingement signs. Neurovascular exam normal except for residual numbness median nerve distribution. Skin: no rashes, warm and dry Neurologic: normal touch/pain/proprioception Psychiatric: A+Ox3, euthymic affect Results & Data Diagnostic Findings Hamada stage IV rotator cuff arthropathy [id number] subacromial space and superior glenohumeral joint space
[2025-01-08] MEDS ORDERED: BUPIVACAINE 0.5 % 5 MG/1 ML PF 10ML VIAL ONE (06:32)
[2025-01-08] MEDS: GABAPENTIN 300 MG CAP PO SCH ×2 (06:47→21:25)
[2025-01-08] MEDS: LR 60ML/HR IV SCH (06:47)
[2025-01-08] MEDS ORDERED: ONDANSETRON INJ 2 MG/ML 2 ML VIAL ONE ×3 (06:51→06:52)
[2025-01-08] MEDS ORDERED: ROCURONIUM BROMIDE 10 MG/ML 5 ML VIAL IV ONE ×2 (06:52→08:14)
[2025-01-08] MEDS ORDERED: LIDOCAINE 2% 2 ML VIAL/AMP(20MG/ML) INFIL ONE (06:52)
[2025-01-08] MEDS ORDERED: PROPOFOL IV EMULSION 10 MG/ML 20 ML VIAL IV ONE (06:52)
[2025-01-08] MEDS: LR 15ML/HR IV SCH (06:55)
[2025-01-08] MEDS ORDERED: MIDAZOLAM HCL 1 MG/ML 2ML VIAL ONE (06:57)
[2025-01-08] MEDS ORDERED: ONDANSETRON INJ 2 MG/ML 2 ML VIAL IV PRN ×2 (07:01→12:01)
[2025-01-08] MEDS ORDERED: ATROPINE SULFATE 0.1 MG/ML 10ML SYR IV PRN (07:01)
[2025-01-08] MEDS: FAMOTIDINE 20 MG TAB PO SCH (07:03)
[2025-01-08] MEDS: ACETAMINOPHEN 500 MG TAB PO SCH ×2 (07:03→14:14)
[2025-01-08] MEDS: METOCLOPRAMIDE HCL 10 MG TABLET PO SCH (07:03)
[2025-01-08] MEDS: dexAMETHasone**PF** 10 MG/ML VIAL IV SCH (07:04)
[2025-01-08] MEDS: CeleBREX 200 MG CAP PO SCH (07:04)
--- NOTE | 2025-01-08 07:15 | History & Physical Bridge Note ---
Date of Service January 08, 2025 History & Physical Bridge Note I have examined the patient, reviewed the History & Physical and in the interval since the performance of the History & Physical I have noted the following changes of clinical significance: no changes noted
[2025-01-08] MEDS: TRANEXAMIC ACID 1,000 MG **IV Pre-op IV SCH (07:16)
[2025-01-08] MEDS ORDERED: ePHEDrine sulfate 50 MG/5 ML SYR ONE (08:04)
[2025-01-08] MEDS ORDERED: SUGAMMADEX SODIUM 200 MG/2 ML VIAL IV ONE (09:15)
--- NOTE | 2025-01-08 10:05 | Operative Report ---
Post Operative Report Pre & Post Diagnosis Operation Date: 01/08/25 07:15 Pre-Op Diagnosis: Rotator cuff arthropathy of right shoulder Post-Op Diagnosis: Rotator cuff arthropathy of right shoulder I identified the patient and participated in the time-out.: Yes Procedure Operation Date: 01/08/25 07:15 Actual Procedures p Right Reverse Total Shoulder Arthroplasty(Right) - Arnie Hardwick MD Surgeon Arnie Hardwick MD Content Strategy Lead Fabián MANSFIELD Estimated Blood Loss 45 Findings Consistent with Post-Op Diagnosis Specimens Humeral head Drains 2 Hemovac Anesthesia Type General Regional Complications none Disposition Disposition: Recovery Room Indications 79-year-old male with end-stage rotator cuff arthropathy pseudoparalysis of right shoulder Description of Procedure The patient was taken to the operating room and anesthetized under regional block and general anesthetic. The patient was positioned on the operating table in a 30 beach chair position with a towel roll under the medial border of the right scapula. The arm was draped free to be able to manipulate the shoulder as needed. The right upper extremity was prepped and draped in usual sterile fashion. Exam demonstrated 140 degrees forward flexion and 80 degrees abduction 90 degrees external rotation. Relatively thin arm. An anterior deltopectoral approach was performed. A longitudinal incision was made in the deltopectoral interval. The skin was incised sharply. Subcutaneous flaps were elevated off the fascia. The cephalic vein was dissected out and retracted lateral with the deltoid. Several crossing veins had to be tied off with silk ties and divided. The clavipectoral fascia was divided at the lateral margin of the conjoined tendon and extended up to the CA ligament. The following findings were noted: There is a large subscapularis tendon tear with only about 15 mm of inferior subscapularis attached. There was scarred bursal tissue above the level that extended over the humeral head where there was a massive rotator cuff tear involving the supraspinatus and infraspinatus with retraction only the teres minor was remaining posteriorly. Humeral head was eburnated bone.. The upper centimeter of the pectoralis was released for inferior exposure. A self-retaining retractor was placed. The biceps tendon findings demonstrated that it was retracted distally and not identified. The subscapular muscle fibers were split longitudinally at the level of the circumflex vessels. The circumflex vessels were identified and tied off with silk ties and divided laterally. A Kitner elevator was used to free up the inferior fibers of the subscapularis off of the capsule. The axillary nerve was identified with a tug test and protected with a blunt Марина retractor between the nerve and the capsule. The lower remnant of the subscapularis tendon was then taken down off of the lesser tuberosity subperiosteally.a subperiosteal dissection was performed along the neck of the humerus as the arm was gradually externally rotated exposing the humeral head. The humeral head findings demonstrated rimming osteophytes with eburnated bone. Humerus was articulating with the glenoid which was eburnated bone superiorly and the acromion process consistent with Hamada 4 rotator cuff arthropathy.. retractors were readjusted and the inferior osteophytes were all resected using an artist chisel. A Monzon elevator was used to assist in releasing the capsule of the neck of the humerus. A Fukuda retractor was placed into the joint retracting the humeral head posterior. an anterior-inferior and posterior inferior capsular release were performed with electrocautery and a Monzon elevator on bone with the axillary nerve protected inferiorly by the retractor. Attention was then taken to the humeral preparation. The cutting guide was placed into the humeral head. It was positioned at 20 of retroversion. Oscillating saw was used to resect the humeral head giving the cut above the level of the posterior rotator cuff insertion site. The humerus was then prepared for the stem. [facility] The sizing broaches were used followed by trial broaches up to a size 4 which had the appropriate fit and fill. Patient had very dense cancellous bone. The appropriate sized cut protector was placed. The humerus was then retracted posterior to the glenoid. The glenoid was sized for a 29 baseplate. The guide for the baseplate was positioned in a 10 inferior tilt and the central drill hole was made. The reamer for the 29 baseplate was used. The central drill was widened for the peg. The aequalis hydroxyapatite coated 29 mm standard post baseplate was impacted into position. The base plate was transfixed with superior and inferior locking screws and anterior and posterior compression screws with stable fixation. The fan reamer was used for the 42 millimeter glenoid sphere. After irrigation the 42 mm centered glenoid sphere was impacted onto the baseplate and the security screw was tightened. Attention was taken back to the humerus. The cut protector was removed and the +0 high offset humeral tray trial was assembled to the trial stem rotated appropriately to get bony coverage and then screwed in position. A trial reduction was performed. A +9 trial insert demonstrated good stability an d no shuck. The trials were removed and the canal was irrigated with pulsatile lavage saline solution. The final component was assembled. The final component was 4B long ascend flex Tornier stem assembled to the +0 high offset tray with a 42 mm +9 reversed flex polyethylene component. This was then impacted into the humerus with a tight press-fit. It was reduced to the glenoid sphere. Stabil ity was verified. The pectoralis was repaired with #2 FiberWire [id number] sutures. The arm was taken through a range of motion which demonstrated 130 degrees of flexion 90 degrees abduction and 80 degrees external rotation. The implant was stable through the range of motion tested. The wound was copiously irrigated. 2 Hemovac drains were placed. The deltopectoral interval was closed with [id number] #1 Vicryl sutures. The subcutaneous tissues were closed with 2-0 Vicryl sutures. The skin was closed with surgical abelardo. A Silverlon dressing was applied and a shoulder immobilizer. SHYLA Levin my physician oral surgery assistant acted as transport assistant throughout the procedure .He performed functions including patient positioning, arm positioning, prepping and draping, soft tissue retraction, instrument management, suture management and performed the subcutaneous and skin closure and will participate in the postoperative care of the patient. Im ordering collagen sheets as a primary dressing and bordered super absorbent for secondary dressings for the wound resulting from this surgery. Collagen is being utilized to encourage the growth of blood vessels and granulation tissue. The collagen will also speed up the wound healing process, increase skin tensile strength at the surgery site and lessen the chance of a wound dehiscence, help prevent infection, and reduce the appearance of scarring. The silicone secondary dressings will protect the wound and help keep it clean and minimize that chances for infection. I believe that this treatment protocol is medically necessary to help facilitate the best outcome possible for my patient. I attest to the content of the Intraoperative Record and any orders documented therein. Any exceptions are noted below.
--- NOTE | 2025-01-08 11:16 | Anesthesiology Progress Note ---
Date of Service January 08, 2025 Anesthesia Post Procedure Vital Signs Vital Signs: Temp Pulse Pulse Resp BP Pulse Ox O2 Del Method 01/08/25 11:00 62 15 158/76 H 100 Nasal Cannula 01/08/25 10:50 67 15 158/73 H 100 Nasal Cannula 01/08/25 10:40 69 17 161/66 H 99 Nasal Cannula 01/08/25 10:30 67 16 162/76 H 98 Nasal Cannula 01/08/25 10:20 71 17 156/83 H 97 Oxymask 01/08/25 10:11 36 C L 65 19 145/82 H 99 Oxymask 01/08/25 06:30 36.8 C 64 20 154/70 H 96 Room Air O2 Flow Rate 01/08/25 11:00 2 01/08/25 10:50 2 01/08/25 10:40 2 01/08/25 10:30 2 01/08/25 10:20 4 01/08/25 10:11 8 01/08/25 06:30 Pain Intensity Right Shoulder: Pain Intensity: 3 Lower Back: Pain Intensity: 4 Transfer of Care Handoff Completed per policy Notes Mental Status: alert / awake / arousable Patient Amnestic to Procedure: Yes Nausea / Vomiting: adequately controlled Pain: adequately controlled Airway Patency, RR, SpO2: stable & adequate BP & HR: stable & adequate Hydration State: stable & adequate Anesthetic Complications: no major complications apparent
--- NOTE | 2025-01-08 11:48 | XRay Report ---
XR shoulder RT min 2V routine CLINICAL HISTORY: Post shoulder surgery COMPARISON: None FINDINGS: Right shoulder prosthesis shows no hardware complication. There is expected soft tissue ga s. Postoperative drain is present. Skin abelardo are present. IMPRESSION: Unremarkable postoperative exam. ACT 112: Negative or not required by law. Electronically signed by: Pramod Hall M.D. 01/08/2025 11:47 AM
[2025-01-08] MEDS ORDERED: HYDROmorphone INJ 0.5 MG/0.5 ML SYR IV PRN (12:01)
[2025-01-08] MEDS ORDERED: diphenhydrAMINE Capsule 25 MG CAP PO PRN (12:01)
[2025-01-08] MEDS ORDERED: METOCLOPRAMIDE HCL INJ 5 MG/ML 2 ML VIAL IV PRN (12:01)
[2025-01-08] MEDS ORDERED: ZOLPIDEM TARTRATE 5 MG TAB PO PRN (12:01)
[2025-01-08] MEDS ORDERED: ALUMINUM/MAGNESIUM SUSP 30 ML UDC PO PRN (12:01)
[2025-01-08] MEDS ORDERED: MAGNESIUM HYDROXIDE SUSP 30 ML UDC PO PRN (12:01)
[2025-01-08] MEDS ORDERED: TAMSULOSIN HCL 0.4 MG CAP PO PRN (12:01)
[2025-01-08] MEDS ORDERED: NALOXONE HCL 0.4 MG/1 ML VIAL/CARP IV PRN (12:01)
[2025-01-08] MEDS ORDERED: KETOROLAC TROMETHAMINE 15 MG/ML VIAL IV PRN (12:01)
[2025-01-08] MEDS: BUPIVACAINE LIPOSOME 1.3% 133 MG/10 ML VIAL ONE (12:44)
[2025-01-08] MEDS: SODIUM CHLORIDE 0.9% 1,000 ML IV SCH (13:01)
[2025-01-08] MEDS ORDERED: Nursing to Pharmacy Communication SCH (16:45)
[2025-01-08] MEDS: TRANEXAMIC ACID / 0.7% NACL 1,000 MG/100 ML BAG IV SCH (16:54)
[2025-01-08] MEDS ORDERED: DOCUSATE SODIUM 100 MG CAP PO SCH (21:00)
[2025-01-08] MEDS: DOCUSATE SODIUM 100 MG CAP PO SCH (21:20)
[2025-01-08] MEDS: FERROUS SULFATE 325 MG TAB PO SCH (21:24)
[2025-01-08] MEDS: levETIRAcetam 500 MG TAB PO SCH (21:25)
[2025-01-08] MEDS: SENNA 8.6 MG TAB PO SCH (21:27)
[2025-01-09 04:44] LABS: Hematocrit (blood only) 30.2 % (42.0-52.0); Hemoglobin 10.4 g/dl (14.0-18.0); Immature Granulocytes # (auto) 0.05 K/uL (0.01-0.20); Immature Granulocytes % (auto) 0.4 %; Mean Corpuscular Hemoglobin 30.7 pg (25.0-34.0); Mean Corpuscular Volume 89.1 fL (80.0-100.0); Platelet Count 127 K/uL (130-400); RDW Standard Deviation 44.5 fL (36.4-46.3); Red Blood Count 3.39 M/uL (4.70-6.10); White Blood Count 13.85 K/ul (4.8-10.8)
[2025-01-09 04:58] LABS: Anion Gap 9.0 (3-11); Blood Urea Nitrogen 28.0 mg/dl (6-23); Calcium 8.8 mg/dl (8.6-10.3); Carbon Dioxide 24.0 mmol/L (21-32); Chloride 105.0 mmol/L (98-107); Creatinine Clr Calc Pharmacy 41.8 ml/min; Glucose 108.0 mg/dl (70-99(Fasting)); Potassium 4.1 mmol/L (3.5-5.1); Sodium 138.0 mmol/L (136-145)
--- NOTE | 2025-01-09 08:09 | Orthopedic Progress Note ---
Date of Service January 09, 2025 Assessment & Plan (1) Rotator cuff arthropathy of right shoulder: Plan: Postop day 1 reverse shoulder replacement. Drainage decreased to the point we can remove Hemovac today before discharge. Patient to do home exercises per pr otocol and can start physical therapy as an outpatient and follow-up in 2 weeks for staple removal. Discussed activity precautions. End-stage rotator cuff arthropathy. Patient has pseudoparalysis. Best option is reverse total shoulder arthroplasty. Patient had successful left shoulder reverse total shoulder arthroplasty. (2) History of reverse total replacement of left shoulder joint: Admission and Anticipated Discharge Date Admission Date: January 08, 2025 Subjective Still under effects of nerve block no pain Review of Systems Review of Systems: No chest pain shortness of breath feels well Physical Exam Musculoskeletal: Partial motor return and since returning from nerve block but still has nerve block effects. Circulation normal. Dressing dry and intact. Results & Data Vital Signs (Past 12 Hours) Vital Signs Temp Pulse Resp BP Pulse Ox O2 Del Method 01/09/25 07:11 36.8 C 70 16 120/60 93 Room Air 01/09/25 03:00 36.7 C 70 16 150/71 H 93 Room Air 01/08/25 23:00 36.6 C 66 16 143/67 H 94 Room Air Diagnostic Findings Well aligned reverse total shoulder replacement
[2025-01-09] MEDS: ASPIRIN 81 MG ECTAB PO SCH (08:32)
[2025-01-09] MEDS: CYANOCOBALAMIN (B-12) 500 MCG TABLET PO SCH (08:32)
[2025-01-09] MEDS: dexAMETHasone 10 MG in SYRINGE 0 ML IV SCH (08:32)
[2025-01-09] MEDS: ASCORBIC ACID 500 MG TAB PO SCH (08:32)
[2025-01-09] MEDS: CHOLECALCIFEROL 25 MCG (1000 UNITS) TAB PO SCH (08:33)
[2025-01-09] MEDS: FOLIC ACID 1 MG TAB PO SCH (08:33)
[2025-01-09] MEDS: MULTIVITAMIN TAB PO SCH (08:34)
[2025-01-09] MEDS: CEROVITE ADV FORMULA TAB PO SCH (08:34)
[2025-01-09] MEDS: LOSARTAN POTASSIUM 50 MG TAB PO SCH (08:34)
[2025-01-09] MEDS: OXYBUTYNIN CHLORIDE XL 5 MG TABCR PO SCH (08:35)
[2025-01-09 10:52] VITALS: BP 151/68; PULSE 77; RESP 18; TEMP 97.8; O2SAT 96
== END 2025-01-09 13:00 | disposition home health service (06) ==
LOC: EDBD → 3W 05:53 → ASU 05:53 → MERGE 10:10

== ENCOUNTER 2025-02-11 01:43 | Observation (INO) ==
[2025-02-11 02:08] LABS: Hematocrit (blood only) 23.6 % (42.0-52.0); Hemoglobin 7.8 g/dl (14.0-18.0); Immature Granulocytes # (auto) 0.13 K/uL (0.01-0.20); Immature Granulocytes % (auto) 1.0 %; Mean Corpuscular Hemoglobin 27.9 pg (25.0-34.0); Mean Corpuscular Volume 84.3 fL (80.0-100.0); Platelet Count 234 K/uL (130-400); RDW Standard Deviation 46.1 fL (36.4-46.3); Red Blood Count 2.80 M/uL (4.70-6.10); White Blood Count 13.26 K/ul (4.8-10.8)
[2025-02-11 02:26] LABS: Alanine Aminotransferase 23.0 U/L (7-52); Albumin Globulin Ratio 0.8 (0.9-2); Albumin Level 3.2 gm/dl (3.4-5.0); Alkaline Phosphatase 73.0 U/L (34-104); Anion Gap 11.0 (3-11); Bilirubin,Total 0.3 mg/dl (0.2-1.0); Blood Urea Nitrogen 19.0 mg/dl (6-23); Calcium 8.9 mg/dl (8.6-10.3); Carbon Dioxide 22.0 mmol/L (21-32); Chloride 103.0 mmol/L (98-107); Creatinine Clr Calc Pharmacy 45.7 ml/min; Globulin 3.8 gm/dl (2.5-4.0); Glucose 185.0 mg/dl (70-99(Fasting)); Potassium 4.3 mmol/L (3.5-5.1); Sodium 136.0 mmol/L (136-145); Total Protein 7.0 gm/dl (6.0-8.3)
[2025-02-11 02:29] LABS: Dohle Bodies 1+; Polychromasia 1+
--- NOTE | 2025-02-11 03:23 | XRay Report ---
EXAM: XR ankle RT min 3V routine CLINICAL HISTORY: ankle pain/swelling TECHNIQUE: X-ray images of the right ankle were obtained in anteroposterior (AP), lateral, and mortise projections. COMPARISON: No prior studies available for comparison. FINDINGS: Bone Structure: An inferior calcaneal spur is seen. The bone structure is normal and aligned. There is no evidence of fracture or dislocation. Joint Spaces: The joint spaces are normal. There is no evidence of joint effusion or subluxation. Soft Tissues: The soft tissues appear normal and unremarkable. Vascular calcifications seen in between the tibia and fibula. IMPRESSION: An inferior calcaneal spur is seen. Normal X-ray of the right ankle. There is no evidence of acute fracture, dislocation. Disclaimer: A subtle bone abnormality or fracture may not be readily apparent on X-rays, thus clinical correlation and further imaging including follow-up CT, MRI, or follow-up X-rays are advised as needed. Electronically signed by Virgilio Morris 02-11-2025 03:22 AM
--- NOTE | 2025-02-11 04:18 | Ultrasound Report ---
EXAM: US venous doppler LE RT CLINICAL HISTORY: Leg swelling/pain TECHNIQUE: Ultrasound examination of the right lower extremity veins was performed in real time and with duplex imaging. One or more of the following were performed: spectral analysis, resistive index, waveform analysis, and pulsed Doppler. COMPARISON: None. FINDINGS: Normal phasic, non-pulsatile, and spontaneous flow is noted in the right GSV, common femoral, superficial femoral, popliteal, anterior tibial, posterior tibial, and peroneal veins. The visualized veins of the right lower extremity demonstrate normal compressibility. No sonographic evidence of acute deep vein thrombosis (DVT) is detected in the visualized veins of the lower extremity. Compression and Augmentation: All evaluated veins compress fully with the applied transducer pressure. Augmentation of venous flow is noted with distal compression. Additional Findings: No evidence of intraluminal thrombus. Mild edema is noted in the right lower extremity. IMPRESSION: 1. No sonographic evidence of acute DVT is detected at the time of examination. 2. Mild edema is noted in the right lower extremity. Disclaimer: DVT could be missed early in the disease when clot burden is minimal. For patients with moderate and high pretest probability of DVT and negative ultrasound, the [employer] clinical guidelines recommend testing with a D-dimer assay or repeat ultrasound in 5-7 days. If symptoms worsen, the Society of radiologists in ultrasound recommends repeating ultrasound even earlier. Electronically signed by Demarcus Moscoso 02-11-2025 04:18 AM
--- NOTE | 2025-02-11 04:29 | Emergency Department Note ---
Impression & Plan Ankle pain, right, Ankle swelling ED Provider Note NAME: JANUSZ SZYMANSKI AGE: 80 SEX: M : 1945 ARRIVES VIA: Ambulance INFORMANT: Patient, ED PROVIDER(S): Robbin Flores MD CHIEF COMPLAINT: Right ankle swelling/pain HPI: This is an 80-year-old male presenting for right ankle swelling/pain. Patient was recently here for wrist swelling and diagnosed with pseudogout. He was discharged home and then began having the swelling since the last 1 day. He notes he is unable to ambulate due to pain. He reports fever at home to 103. ROS: See above HPI for pertinent positives & negatives. A total of 10 systems reviewed and were otherwise negative. PAST MEDICAL HISTORY: See Below PAST SURGICAL HISTORY: See Below FAMILY HISTORY: See Below SOCIAL HISTORY: See Below HOME MEDICATIONS: See Below ALLERGIES: See Below VITALS: See Below PHYSICAL EXAMINATION: General: resting comfortably in no acute distress Head: Normocephalic and atraumatic Eyes: Normal inspection, extraocular muscles intact Ear, nose, throat: Normal external exam Neck: Normal range of motion Respiratory: lungs clear to auscultation bilaterally Cardiovascular: Regular rate/rhythm, no murmur GI: soft, nontender, no guarding or rebound Extremities: nontender, moves all extremities, right lower extremity ankle swelling/tenderness to palpation, 2+ pulses, slight pitting edema Neuro: The patient awake and alert, appropriately conversive, no focal deficits, symmetric faces Skin: Warm, dry, and intact MEDICAL DECISION MAKING: This is an 80-year-old male presenting for right ankle swelling/pain. Recently here for swelling of the wrist. He is currently febrile, not overtly septic. However do have concern that patient is unable to ambulate at this time. Consider pseudogout, gout, septic joint, cellulitis, DVT. - Leukocytosis 13.26, stable anemia 7.8. - DVT study ultimately negative - X-ray reveals no osseous fracture -Ultimate patient will be admitted as she has unable ambulate at this time Differential diagnosis: Septic joint, gout, pseudogout, DVT, cellulitis Independent History obtained from: Diagnostics interpreted by me: ECG: None Cardiac Monitoring: An order was placed for continuous cardiac monitoring. The monitor shows a rate of 79 with sinus rhythm. 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 History of colon polyps Carotid artery stenosis Follows with [facility] Dr Olea History of anemia possibly hx blood transfusion - oral supplement History of kidney stones passed on own Urinary incontinence History of seizure one per pt- approx 2018 - and no reoccurrence. Unknown etiology per pt - on Keppra. Follows with [facility] Dr Bansal Neuropathy feet History of prostate cancer (~2003) sx and radiation - [facility] Chronic back pain Deviated septum Arthritis Surgical History History of tooth extraction Upper/Lower Dentures History of bilateral cataract extraction History of total left hip arthroplasty (11/20/23) History of lumbar spinal fusion Hardware present History of total replacement of left shoulder joint "I was bleeding down my whole left side. I had black and blue down my whole left side" as per patient (Post-op) History of total knee replacement left History of colonoscopy History of prostatectomy approx 2003 History of cardiac cath 2009 no stents - Follows with [facility] Dr Olea Hx of hernia repair Previous back surgery mini laminectomy Family History Father , at 70 years of age from Guillain Anselmo Syndrome. Hypertension Grandmother Diabetes PATERNAL Sister Family hx of colon cancer Mother , at 101 years of age from congestive heart failure with a 101 years old heart. No problems noted. Social History Smoking Status: Never smoker Second Hand Exposure: No; Do You Dip or Chew Tobacco: No; Hx Alcohol Use: No Hx Substance Use: No Preferred Language: Maltese Communication Ability: Effective Associate Counsel Required: No Beliefs That Will Affect Care: None marital status: Current Living Situation: Spouse Current Living Situation Comment: home with spouse current occupational status: retired current occupation: [employer] (now [employer] radha, 42 yrs. How many Children do You have: 1 How many Children do You have Comment: 56y daughter, alive and well. Feels Safe at Home: Yes Diet: regular Assistive Devices: Cane Allergies Allergies Allergy/AdvReac Type Severity Reaction Status Date / Time celecoxib [From Celebrex] AdvReac Intermediate advised Verified 02/05/25 16:28 not to take- increases renal labs per NSAIDS (Non-Steroidal AdvReac Intermediate advised Verified 02/05/25 16:28 Anti-Inflamma per Neuphrologist not to take Home Meds Home Medications Medication Instructions Recorded Confirmed ascorbic acid (vitamin C) 1,000 mg 1,000 mg PO QAM 09/25/19 02/11/25 tablet (Vitamin C) cholecalciferol (vitamin D3) 25 25 mcg PO QAM 09/25/19 02/11/25 mcg (1,000 unit) capsule (Vitamin D3) cyanocobalamin (vitamin B-12) 1,000 mcg PO QAM 09/25/19 02/11/25 1,000 mcg capsule docusate sodium 100 mg capsule 100 mg PO BID 09/25/19 02/11/25 (Stool Softener) ferrous sulfate 325 mg (65 mg 325 mg PO BID 09/25/19 02/11/25 iron) tablet (iron) folic acid 1 mg tablet 1 mg PO QAM 09/25/19 02/11/25 gabapentin 300 mg capsule 600 mg PO BID 09/25/19 02/11/25 (Neurontin) irbesartan 300 mg tablet (Avapro) 300 mg PO QAM 09/25/19 02/11/25 levetiracetam 1,000 mg tablet 1,000 mg PO BID 09/25/19 02/11/25 (Keppra) metformin 1,000 mg tablet 1,000 mg PO BID 09/25/19 02/11/25 vitamins A,C,K-mgvi-fqyojd 2,148 1 tab PO BID 09/25/19 02/11/25 mcg-113 mg-45 mg-17.4 mg tablet (PreserVision AREDS) evolocumab 140 mg/mL subcutaneous 0 mg subcut MONTHLY 09/05/22 02/11/25 pen injector (Makeda Vazquez) tramadol 50 mg tablet 50 mg PO DAILY PRN Pain 12/16/24 02/11/25 zolpidem 12.5 mg tablet,extended 10 mg PO HS PRN Insomnia 12/18/24 02/11/25 release,multiphase (Ambien CR) acetaminophen 500 mg tablet 1,000 mg PO Q8H PRN Pain 02/05/25 02/11/25 (Tylenol Extra Strength) oxybutynin chloride 10 mg 10 mg PO QAM 02/05/25 02/11/25 tablet,extended release 24 hr Previous Rx's Medication Instructions Recorded aspirin 81 mg tablet,delayed 81 mg PO BID #60 tabs 01/08/25 release oxycodone 5 mg tablet 5 mg PO Q4H PRN pain #30 tabs 01/08/25 amoxicillin 875 mg-potassium 1 tab PO Q12H #20 tabs 02/08/25 clavulanate 125 mg tablet Results & Data (ED) Vital Signs Vital Signs - 24 hr 02/11/25 04:00 02/11/25 04:00 02/11/25 04:00 Pulse Rate 81 Pulse Rate [Right Finger] Pulse Rate from SpO2 Sensor 81 Pulse Rhythm [Right Finger] Pulse Strength [Right Finger] Respiratory Rate 16 Respiratory Effort / Characteristics Respiratory Depth Respiratory Pattern Blood Pressure 131/64 131/64 Blood Pressure [Right Arm] Blood Pressure Mean 89 89 Blood Pressure Mean [Right Arm] Blood Pressure Position [Right Arm] Pulse Oximetry 97 Oxygen Delivery Method 02/11/25 04:00 02/11/25 04:00 02/11/25 04:00 Pulse Rate Pulse Rate [Right Finger] Pulse Rate from SpO2 Sensor Pulse Rhythm [Right Finger] Pulse Strength [Right Finger] Respiratory Rate Respiratory Effort / Characteristics Respiratory Depth Respiratory Pattern Blood Pressure 131/64 131/64 131/64 Blood Pressure [Right Arm] Blood Pressure Mean 89 89 89 Blood Pressure Mean [Right Arm] Blood Pressure Position [Right Arm] Pulse Oximetry Oxygen Delivery Method 02/11/25 04:12 02/11/25 04:21 02/11/25 04:30 Pulse Rate 80 85 81 Pulse Rate [Right Finger] Pulse Rate from SpO2 Sensor 80 85 82 Pulse Rhythm [Right Finger] Pulse Strength [Right Finger] Respiratory Rate 16 23 18 Respiratory Effort / Characteristics Respiratory Depth Respiratory Pattern Blood Pressure Blood Pressure [Right Arm] Blood Pressure Mean Blood Pressure Mean [Right Arm] Blood Pressure Position [Right Arm] Pulse Oximetry 93 97 95 Oxygen Delivery Method 02/11/25 04:42 02/11/25 04:51 02/11/25 05:00 Pulse Rate 80 77 Pulse Rate [Right Finger] 78 Pulse Rate from SpO2 Sensor 80 78 Pulse Rhythm [Right Finger] Regular Pulse Strength [Right Finger] Normal Respiratory Rate 19 19 19 Respiratory Effort / Characteristics Non-Labored Spontaneous Respiratory Depth Normal Respiratory Pattern Regular Blood Pressure Blood Pressure [Right Arm] 122/62 Blood Pressure Mean Blood Pressure Mean [Right Arm] 82 Blood Pressure Position [Right Arm] Lying Pulse Oximetry 96 96 95 Oxygen Delivery Method Room Air 02/11/25 05:00 02/11/25 05:00 02/11/25 05:00 Pulse Rate Pulse Rate [Right Finger] Pulse Rate from SpO2 Sensor Pulse Rhythm [Right Finger] Pulse Strength [Right Finger] Respiratory Rate Respiratory Effort / Characteristics Respiratory Depth Respiratory Pattern Blood Pressure 122/62 122/62 122/62 Blood Pressure [Right Arm] Blood Pressure Mean 83 83 83 Blood Pressure Mean [Right Arm] Blood Pressure Position [Right Arm] Pulse Oximetry Oxygen Delivery Method 02/11/25 05:00 02/11/25 05:00 02/11/25 05:00 Pulse Rate 79 Pulse Rate [Right Finger] Pulse Rate from SpO2 Sensor 79 Pulse Rhythm [Right Finger] Pulse Strength [Right Finger] Respiratory Rate 15 Respiratory Effort / Characteristics Respiratory Depth Respiratory Pattern Blood Pressure 122/62 122/62 Blood Pressure [Right Arm] Blood Pressure Mean 83 83 Blood Pressure Mean [Right Arm] Blood Pressure Position [Right Arm] Pulse Oximetry 96 Oxygen Delivery Method 02/11/25 05:12 02/11/25 05:20 02/11/25 05:32 Pulse Rate 77 74 77 Pulse Rate [Right Finger] Pulse Rate from SpO2 Sensor 77 72 75 Pulse Rhythm [Right Finger] Pulse Strength [Right Finger] Respiratory Rate 20 9 L 20 Respiratory Effort / Characteristics Respiratory Depth Respiratory Pattern Blood Pressure Blood Pressure [Right Arm] Blood Pressure Mean Blood Pressure Mean [Right Arm] Blood Pressure Position [Right Arm] Pulse Oximetry 95 96 96 Oxygen Delivery Method 02/11/25 05:41 Pulse Rate 78 Pulse Rate [Right Finger] Pulse Rate from SpO2 Sensor 81 Pulse Rhythm [Right Finger] Pulse Strength [Right Finger] Respiratory Rate 18 Respiratory Effort / Characteristics Respiratory Depth Respiratory Pattern Blood Pressure Blood Pressure [Right Arm] Blood Pressure Mean Blood Pressure Mean [Right Arm] Blood Pressure Position [Right Arm] Pulse Oximetry 94 Oxygen Delivery Method Laboratory Data 02/11/25 01:46 02/11/25 01:46 Lab Results 02/11/25 02/11/25 Range/Units 01:46 05:43 WBC 13.26 H (4.8-10.8) K/ul RBC 2.80 L (4.70-6.10) M/uL Hgb 7.8 L (14.0-18.0) g/dl Hct 23.6 L (42.0-52.0) % MCV 84.3 (80.0-100.0) fL MCH 27.9 (25.0-34.0) pg MCHC 33.1 (32.0-36.0) g/dL RDW Std Deviation 46.1 (36.4-46.3) fL RDW Coeff of Hallie 14.9 H (11.5-14.5) % Plt Count 234 (130-400) K/uL MPV 12.0 (9.4-12.4) fL Immature Gran % (Auto) 1.0 % Neut % (Auto) 80.1 % Lymph % (Auto) 6.8 % Mifflin % (Auto) 11.1 % Eos % (Auto) 0.6 % Baso % (Auto) 0.4 % Neut # (Auto) 10.63 H (1.40-6.50) K/uL Lymph # (Auto) 0.90 L (1.20-3.40) K/uL [place]in # (Auto) 1.47 H (0.11-0.59) K/uL Eos # (Auto) 0.08 (0.00-0.50) K/uL Baso # (Auto) 0.05 (0.00-0.20) K/uL Immature Gran # (Auto) 0.13 (0.01-0.20) K/uL Dohle Bodies 1+ Polychromasia 1+ ESR 78 H (0-20) mm/hr Sodium 136 (136-145) mmol/L Potassium 4.3 (3.5-5.1) mmol/L Chloride 103 (98-107) mmol/L Carbon Dioxide 22 (21-32) mmol/L Anion Gap 11 (3-11) BUN 19 (6-23) mg/dl Creatinine 1.35 (0.6-1.4) mg/dl Est Cr Clr Drug Dosing 45.7 ml/min eGFR 52.75 BUN/Creatinine Ratio 14.1 (10-20) Glucose 185 H (70-99(Fasting)) mg/dl Uric Acid 6.3 (2.6-7.2) mg/dl Calcium 8.9 (8.6-10.3) mg/dl Total Bilirubin 0.3 (0.2-1.0) mg/dl AST 25 (13-39) U/L ALT 23 (7-52) U/L Alkaline Phosphatase 73 (34-104) U/L C-Reactive Protein 15.74 H (0-0.5) mg/dl Total Protein 7.0 (6.0-8.3) gm/dl Albumin 3.2 L (3.4-5.0) gm/dl Globulin 3.8 (2.5-4.0) gm/dl Albumin/Globulin Ratio 0.8 L (0.9-2) Procalcitonin 0.30 (0-0.5) ng/ml Anaplasma Smear See Comment Babesia Smear See Comment Lyme Disease Screen Negative (Negative) Administered Medications Amlodipine Besylate (Amlodipine Besylate 5 Mg Tab) 5 mg PO [facility] Stop: 03/13/25 08:59 Last Admin: 02/11/25 09:32 Dose: 5 mg Documented By: GIANCARLO Aspirin (Aspirin 81 Mg Ectab) 81 mg PO BID [facility] Stop: 03/13/25 08:59 Last Admin: 02/11/25 21:12 Dose: 81 mg Documented By: melody Admin: 02/11/25 09:32 Dose: 81 mg Documented By: GIANCARLO Colchicine (Colchicine 0.6 Mg Tab) 0.6 mg PO BID [facility] Stop: 03/13/25 20:59 Last Admin: 02/11/25 21:12 Dose: 0.6 mg Documented By: melody Cyanocobalamin (Cyanocobalamin (B-12) 500 Mcg Tablet) 1,000 mcg PO [facility] Stop: 03/13/25 08:59 Last Admin: 02/11/25 09:31 Dose: 1,000 mcg Documented By: MMF Docusate Sodium (Docusate Sodium 100 Mg Cap) 100 mg PO BID [facility] Stop: 03/13/25 08:59 Last Admin: 02/11/25 21:12 Dose: 100 mg Documented By: [email or web address] Admin: 02/11/25 09:32 Dose: 100 mg Documented By: MMF Ferrous Sulfate (Ferrous Sulfate 325 Mg Tab) 325 mg PO BID [facility] Stop: 03/13/25 08:59 Last Admin: 02/11/25 21:12 Dose: 325 mg Documented By: ksy Admin: 02/11/25 09:32 Dose: 325 mg Documented By: MMF Folic Acid (Folic Acid 1 Mg Tab) 1 mg PO QAM [facility] Stop: 03/13/25 08:59 Last Admin: 02/11/25 09:32 Dose: 1 mg Documented By: MMF Gabapentin (Gabapentin 300 Mg Cap) 600 mg PO BID [facility] Stop: 03/13/25 08:59 Last Admin: 02/11/25 21:12 Dose: 600 mg Documented By: melody Admin: 02/11/25 09:32 Dose: 600 mg Documented By: MMF Methylprednisolone 40 mg/ (Syringe) 0.64 mls @ 1.5 mls/min IV Q8H [facility] Stop: 03/13/25 13:59 Last Admin: 02/11/25 22:17 Dose: 1.5 mls/min Documented By: melody Admin: 02/11/25 17:52 Dose: Not Given Documented By: PME Insulin Aspart (Insulin Aspart Per Unit Charge) 0 units SC ACHS [facility] Stop: 03/13/25 08:22 Last Admin: 02/11/25 21:09 Dose: Not Given Documented By: melody Co-signed By: JEREMY Admin: 02/11/25 17:38 Dose: 3 units Documented By: SALINA Co-signed By: [email or web address] Admin: 02/11/25 12:52 Dose: 11 units Documented By: MMF Co-signed By: MYKE Admin: 02/11/25 10:31 Dose: 9 units Documented By: MMF Co-signed By: MR Levetiracetam (Levetiracetam 500 Mg Tab) 1,000 mg PO BID [facility] Stop: 03/13/25 08:59 Last Admin: 02/11/25 21:12 Dose: 1,000 mg Documented By: melody Admin: 02/11/25 09:32 Dose: 1,000 mg Documented By: GIANCARLO Multivitamins/Minerals (Cerovite Adv Formula Tab) 1 tab PO BID [facility] Stop: 03/13/25 08:59 Last Admin: 02/11/25 21:12 Dose: 1 tab Documented By: melody Admin: 02/11/25 09:31 Dose: 1 tab Documented By: GIANCARLO Oxybutynin Chloride (Oxybutynin Chloride Xl 5 Mg Tabcr) 10 mg PO QAM [facility] Stop: 03/13/25 08:59 Last Admin: 02/11/25 09:32 Dose: 10 mg Documented By: GIANCARLO Vitamin D (Cholecalciferol 25 Mcg (1000 Units) Tab) 25 mcg PO QAM [facility] Stop: 03/13/25 08:59 Last Admin: 02/11/25 09:31 Dose: 25 mcg Documented By: GIANCARLO Zolpidem Tartrate (Zolpidem Tartrate 5 Mg Tab) 10 mg PO HS PRN PRN Reason: Sleep Stop: 03/13/25 08:32 Last Admin: 02/11/25 22:17 Dose: 10 mg Documented By: melody Discontinued Medications Colchicine (Colchicine 0.6 Mg Tab) 0.6 mg PO NOW ONE Stop: 02/11/25 05:33 Last Admin: 02/11/25 05:47 Dose: 0.6 mg Documented By: DENIS Sodium Chloride (Nss) 1,000 mls @ 80 mls/hr IV .[id number] [facility] Stop: 02/11/25 18:14 Last Infusion: 02/11/25 18:35 Dose: Infused Documented By: Admin: 02/11/25 05:47 Dose: 80 mls/hr Documented By: DENIS Methylprednisolone (Methylprednisolone 125 Mg/2 Ml Vial) 20 mg IV NOW STA Stop: 02/11/25 05:23 Last Admin: 02/11/25 05:46 Dose: 20 mg Documented By: DENIS Oxycodone HCl (Oxycodone Hcl Ir 5 Mg Tab (Immediate Release)) 5 mg PO NOW STA Stop: 02/11/25 06:31 Last Admin: 02/11/25 06:35 Dose: 5 mg Documented By: DENIS Imaging Data Radiologist's Impression: Ankle X-Ray 02/11/25 02:31 EXAM: XR ankle RT min 3V routine CLINICAL HISTORY: ankle pain/swelling TECHNIQUE: X-ray images of the right ankle were obtained in anteroposterior (AP), lateral, and mortise projections. COMPARISON: No prior studies available for comparison. FINDINGS: Bone Structure: An inferior calcaneal spur is seen. The bone structure is normal and aligned. There is no evidence of fracture or dislocation. Joint Spaces: The joint spaces are normal. There is no evidence of joint effusion or subluxation. Soft Tissues: The soft tissues appear normal and unremarkable. Vascular calcifications seen in between the tibia and fibula. IMPRESSION: An inferior calcaneal spur is seen. Normal X-ray of the right ankle. There is no evidence of acute fracture, dislocation. Disclaimer: A subtle bone abnormality or fracture may not be readily apparent on X-rays, thus clinical correlation and further imaging including follow-up CT, MRI, or follow-up X-rays are advised as needed. Electronically signed by Virgilio Morris 02-11-2025 03:22 AM Venous Doppler Study 02/11/25 02:31 EXAM: US venous doppler LE RT CLINICAL HISTORY: Leg swelling/pain TECHNIQUE: Ultrasound examination of the right lower extremity veins was performed in real time and with duplex imaging. One or more of the following were performed: spectral analysis, resistive index, waveform analysis, and pulsed Doppler. COMPARISON: None. FINDINGS: Normal phasic, non-pulsatile, and spontaneous flow is noted in the right GSV, common femoral, superficial femoral, popliteal, anterior tibial, posterior tibial, and peroneal veins. The visualized veins of the right lower extremity demonstrate normal compressibility. No sonographic evidence of acute deep vein thrombosis (DVT) is detected in the visualized veins of the lower extremity. Compression and Augmentation: All evaluated veins compress fully with the applied transducer pressure. Augmentation of venous flow is noted with distal compression. Additional Findings: No evidence of intraluminal thrombus. Mild edema is noted in the right lower extremity. IMPRESSION: 1. No sonographic evidence of acute DVT is detected at the time of examination. 2. Mild edema is noted in the right lower extremity. Disclaimer: DVT could be missed early in the disease when clot burden is minimal. For patients with moderate and high pretest probability of DVT and negative ultrasound, the [employer] clinical guidelines recommend testing with a D-dimer assay or repeat ultrasound in 5-7 days. If symptoms worsen, the Society of radiologists in ultrasound recommends repeating ultrasound even earlier. Electronically signed by Demarcus Moscoso 02-11-2025 04:18 AM Discharge Plan Visit Data Chief Complaint: Ankle Pain Stated Complaint: R ankle pain ED Provider: Robbin Flores Discharge Problem: Ankle pain, right, Ankle swelling Patient Disposition: Admitted As Inpatient Condition: Fair Discharge Instructions Interventions: ED Discharge Assessment Last Done: 02/11/25 16:27
[2025-02-11 05:00] LABS: Uric Acid 6.3 mg/dl (2.6-7.2)
[2025-02-11] MEDS: COLCHICINE 0.6 MG TAB PO ONE (05:47)
[2025-02-11] MEDS: SODIUM CHLORIDE 0.9% 1,000 ML IV SCH (05:47)
--- NOTE | 2025-02-11 05:50 | History & Physical Report ---
Date of Service February 11, 2025 Assessment & Plan (1) Pain and swelling of right ankle: (2) Diabetes mellitus, type 2: (3) Hypertension: (4) History of anemia: Plan Patient is a 80-year-old male with past medical history including right reverse total shoulder arthroplasty on 01/08/2025, anemia, diabetes mellitus, prostate cancer, lumbar spinal stenosis with neurogenic claudication, seizure disorder, hypertension, overactive bladder, and urinary incontinence. He was most recen tly admitted to [facility] from 02/05-02/08/2025 for right wrist pain and swelling with cellulitis. He was placed on vancomycin IV and Zosyn IV x 3 days, and was discharged on Augmentin 875 mg twice daily x 10 days. His right wrist was aspirated during that hospitalization, and culture has since been negative. He was also noted to have partial tendon tear in the right wrist and was to follow-up in the outpatient setting with orthopedic surgery. On 02/09, he began to have right ankle swelling, redness, and pain which progressed to the point that he came to the emergency department on 02/10 due to inability to bear weight. Workup in the emergency department included a negative right ankle x- ray, and negative right lower extremity venous Doppler other than showing some mild edema. CRP is elevated 15.74, and ESR elevated at 78, but has progressed from previous admission. The patient was referred to the [facility] hospitalist service for further evaluation and treatment. Right ankle pain and swelling/recent admission for right wrist infection-inflammation-- Examination right foot and ankle consistent with gout/pseudogout ESR and CRP elevated again, higher than previous Placed on Solu-Medrol 20 mg IV now, then every 12 hours Start colchicine 0.6 mg p.o. now, then twice daily Repeat uric acid and calcitonin Order ALEXUS, rheumatoid factor, and tickborne studies Acetaminophen 1 g IV every 8 hours as needed for mild pain or fever Oxycodone 5 mg p.o. every 4 hours as needed for moderate pain Dilaudid 0.25 mg IV every 3 hours as needed for severe pain History of acute kidney injury and NSAID intolerance- Discussed with patient that this is likely secondary to being on irbesartan, and this will be changed from irbesartan 300 mg to amlodipine 5 mg. Will also discontinue ascorbic acid Diabetes mellitus- Hold metformin Placed on Accu-Cheks with NovoLog SSI Expect that his blood sugar may go up somewhat being on steroids. He will hopefully be able to tolerate NSAIDs, after completing a course of steroids, and being off of irbesartan, and on amlodipine Seizure disorder- Continue Keppra 1000 mg p.o. twice daily Continue gabapentin 600 mg p.o. twice daily Will discontinue tramadol due to possibility of lowering seizure threshold Anemia- More recent change compared to February 05 and is 9.2, presently 7.8, at last admission 7.4-7.5 Continue with his ferrous sulfate, B12, and folate Will test for inflammatory causes of the ALEXUS and rheumatoid factor, and tickborne studies History of Present Illness Primary Care Provider: Ash Ackerman Patient is a 80-year-old male with past medical history including right reverse total shoulder arthroplasty on 01/08/2025, anemia, diabetes mellitus, prostate cancer, lumbar spinal stenosis with neurogenic claudication, seizure disorder, hypertension, overactive bladder, and urinary incontinence. He was most recently admitted to [facility] from 02/05-02/08/2025 for right wrist pain and swelling with cellulitis. He was placed on vancomycin IV and Zosyn IV x 3 days, and was discharged on Augmentin 875 mg twice daily x 10 days. His right wrist was aspirated during that hospitalization, and culture has since been negative. He was also noted to have partial tendon tear in the right wrist and was to follow-up in the outpatient setting with orthopedic surgery. On 02/09, he began to have right ankle swelling, redness, and pain which progressed to the point that he came to the emergency department on 02/10 due to inability to bear weight. Workup in the emergency department included a negative right ankle x- ray, and negative right lower extremity venous Doppler other than showing some mild edema. CRP is elevated 15.74, and ESR elevated at 78, but has progressed from previous admission. The patient was referred to the [facility] hospitalist service for further evaluation and treatment. Allergies Allergy/AdvReac Type Severity Reaction Status Date / Time celecoxib [From Celebrex] AdvReac Intermediate advised Verified 02/05/25 16:28 not to take- increases renal labs per NSAIDS (Non-Steroidal AdvReac Intermediate advised Verified 02/05/25 16:28 Anti-Inflamma per Neuphrologist not to take Home Medications Medication Instructions Recorded Confirmed Type ascorbic acid (vitamin C) 1,000 mg 1,000 mg PO QAM 09/25/19 02/11/25 History tablet (Vitamin C) cholecalciferol (vitamin D3) 25 25 mcg PO QAM 09/25/19 02/11/25 History mcg (1,000 unit) capsule (Vitamin D3) cyanocobalamin (vitamin B-12) 1,000 mcg PO QAM 09/25/19 02/11/25 History 1,000 mcg capsule docusate sodium 100 mg capsule 100 mg PO BID 09/25/19 02/11/25 History (Stool Softener) ferrous sulfate 325 mg (65 mg 325 mg PO BID 09/25/19 02/11/25 History iron) tablet (iron) folic acid 1 mg tablet 1 mg PO QAM 09/25/19 02/11/25 History gabapentin 300 mg capsule 600 mg PO BID 09/25/19 02/11/25 History (Neurontin) irbesartan 300 mg tablet (Avapro) 300 mg PO QAM 09/25/19 02/11/25 History levetiracetam 1,000 mg tablet 1,000 mg PO BID 09/25/19 02/11/25 History (Keppra) metformin 1,000 mg tablet 1,000 mg PO BID 09/25/19 02/11/25 History vitamins A,C,W-qoln-jdbmta 2,148 1 tab PO BID 09/25/19 02/11/25 History mcg-113 mg-45 mg-17.4 mg tablet (PreserVision AREDS) evolocumab 140 mg/mL subcutaneous 0 mg subcut MONTHLY 09/05/22 02/11/25 History pen injector (Repatha SureClick) tramadol 50 mg tablet 50 mg PO DAILY PRN Pain 12/16/24 02/11/25 History zolpidem 12.5 mg tablet,extended 10 mg PO HS PRN Insomnia 12/18/24 02/11/25 History release,multiphase (Ambien CR) aspirin 81 mg tablet,delayed 81 mg PO BID #60 tabs 01/08/25 02/11/25 Rx release oxycodone 5 mg tablet 5 mg PO Q4H PRN pain #30 tabs 01/08/25 02/11/25 Rx acetaminophen 500 mg tablet 1,000 mg PO Q8H PRN Pain 02/05/25 02/11/25 History (Tylenol Extra Strength) oxybutynin chloride 10 mg 10 mg PO QAM 02/05/25 02/11/25 History tablet,extended release 24 hr amoxicillin 875 mg-potassium 1 tab PO Q12H #20 tabs 02/08/25 02/11/25 Rx clavulanate 125 mg tablet Past Med/Surg History Problem List (Updated 02/11/25 @ 06:20 by Sd Mendes MD) Pain and swelling of right ankle History of reverse total replacement of left shoulder joint Degenerative joint disease of left hip Urinary incontinence (Acute) Neoplasm of prostate, malignant (Acute) Neurogenic claudication due to lumbar spinal stenosis Encounter for pre-operative examination Seizure 1 SEIZURE LONG TIME AGO ON MEDS SINCE-NO ISSUES SINCE High blood pressure Impotence Overactive bladder DJD of left shoulder Medical History Rotator cuff arthropathy of right shoulder Diabetes mellitus, type 2 Hypertension controlled, stable per pt Macular degeneration early stage/no progression over last 2 yrs. History of colon polyps Carotid artery stenosis Follows with [facility] Cardiology Dr Olea History of anemia possibly hx blood transfusion - oral supplement History of kidney stones passed on own Urinary incontinence History of seizure one per pt- approx 2018 - and no reoccurrence. Unknown etiology per pt - on Keppra. Follows with [facility] Neurology Dr Bansal Neuropathy feet History of prostate cancer (~2003) sx and radiation - [facility] Chronic back pain Deviated septum Arthritis Surgical History History of tooth extraction Upper/Lower Dentures History of bilateral cataract extraction History of total left hip arthroplasty (11/20/23) History of lumbar spinal fusion Hardware present History of total replacement of left shoulder joint "I was bleeding down my whole left side. I had black and blue down my whole left side" as per patient (Post-op) History of total knee replacement left History of colonoscopy History of prostatectomy approx 2003 History of cardiac cath 2008 no stents - Follows with [facility] Cardiology Dr Olea Hx of hernia repair Previous back surgery mini laminectomy Family History Father , at 70 years of age from Guillain [place] Syndrome. Hypertension Grandmother Diabetes PATERNAL Sister Family hx of colon cancer Mother , at 101 years of age from congestive heart failure with a 101 years old heart. No problems noted. Social History Smoking Status: Never smoker Second Hand Exposure: No; Do You Dip or Chew Tobacco: No; Hx Alcohol Use: No Hx Substance Use: No Preferred Language: Burundian Communication Ability: Effective Rail Bonder Required: No Beliefs That Will Affect Care: None marital status: Current Living Situation: Spouse Current Living Situation Comment: home with spouse current occupational status: retired current occupation: [employer], 42 yrs. How many Children do You have: 1 How many Children do You have Comment: 56y daughter, alive and well. Feels Safe at Home: Yes Diet: regular Assistive Devices: Cane Review of Systems Review of Systems: The patient denies chest pain, palpitations, shortness of breath, dyspnea on ex ertion, cough, sore throat, chills, sweats, nausea, vomiting, diarrhea , constipation, abdominal pain, pelvic pain, blood in urine or stool, dysuria, lightheadedness, dizziness, headache, memory loss, loss of consciousness, rash, abnormal bruising or bleeding, focal or generalized weakness, numbness or tingling in left arm or leg, neck pain, or night sweats. The review of systems is otherwise negative other than for that already noted above, and at least 10 systems have been reviewed. Physical Exam Physical Exam: The patient is awake, alert and oriented 3, well developed and well nourished, normocephalic and atraumatic, lying in bed and in mild/moderate acute distress secondary to right foot and ankle pain HEENT--PERRL, EOMI, mucous membranes and oropharynx mildly dry. Neck--supple. No JVD. No bruits. Thyroid normal, trachea midline, no adenopathy. Heart--normal S1 and S2. No murmurs, rubs or gallops. Lungs--clear bilaterally, no respiratory distress, no accessory muscle use. Abdomen--normal bowel sounds and soft. Nontender. Nondistended, no hernias or masses, no organomegaly. Extremities--no cyanosis or clubbing. Trace nonpitting edema right ankle and foot. There are good distal pulses b/l. Dermatologic--mild erythema from right ankle to jail along dorsum of foot. Neurologic--cranial nerves II through XII grossly intact. Rheumatologic--normal range of motion, except for right shoulder and right ankle and foot Psychiatric--normal affect. Results & Data Results & Data Vital Signs (Past 12 Hours) Vital Signs Temp Pulse Resp BP Pulse Ox O2 Del Method 02/11/25 01:49 37.8 C H 101 H 12 136/84 93 Room Air 02/11/25 01:45 104 H Laboratory Results Laboratory Results WBC 13.26 K/ul (4.8-10.8) H 02/11/25 01:46 RBC 2.80 M/uL (4.70-6.10) L 02/11/25 01:46 Hgb 7.8 g/dl (14.0-18.0) L 02/11/25 01:46 Hct 23.6 % (42.0-52.0) L 02/11/25 01:46 MCV 84.3 fL (80.0-100.0) 02/11/25 01:46 MCH 27.9 pg (25.0-34.0) 02/11/25 01:46 MCHC 33.1 g/dL (32.0-36.0) 02/11/25 01:46 RDW Std Deviation 46.1 fL (36.4-46.3) 02/11/25 01:46 RDW Coeff of Hallie 14.9 % (11.5-14.5) H 02/11/25 01:46 Plt Count 234 K/uL (130-400) 02/11/25 01:46 MPV 12.0 fL (9.4-12.4) 02/11/25 01:46 Immature Gran % (Auto) 1.0 % 02/11/25 01:46 Neut % (Auto) 80.1 % 02/11/25 01:46 Lymph % (Auto) 6.8 % 02/11/25 01:46 Gila % (Auto) 11.1 % 02/11/25 01:46 Eos % (Auto) 0.6 % 02/11/25 01:46 Baso % (Auto) 0.4 % 02/11/25 01:46 Neut # (Auto) 10.63 K/uL (1.40-6.50) H 02/11/25 01:46 Lymph # (Auto) 0.90 K/uL (1.20-3.40) L 02/11/25 01:46 Gila # (Auto) 1.47 K/uL (0.11-0.59) H 02/11/25 01:46 Eos # (Auto) 0.08 K/uL (0.00-0.50) 02/11/25 01:46 Baso # (Auto) 0.05 K/uL (0.00-0.20) 02/11/25 01:46 Immature Gran # (Auto) 0.13 K/uL (0.01-0.20) 02/11/25 01:46 Dohle Bodies 1+ 02/11/25 01:46 Polychromasia 1+ 02/11/25 01:46 ESR 78 mm/hr (0-20) H 02/11/25 01:46 Sodium 136 mmol/L (136-145) 02/11/25 01:46 Potassium 4.3 mmol/L (3.5-5.1) 02/11/25 01:46 Chloride 103 mmol/L (98-107) 02/11/25 01:46 Carbon Dioxide 22 mmol/L (21-32) 02/11/25 01:46 Anion Gap 11 (3-11) 02/11/25 01:46 BUN 19 mg/dl (6-23) 02/11/25 01:46 Creatinine 1.35 mg/dl (0.6-1.4) 02/11/25 01:46 Est Cr Clr Drug Dosing 45.7 ml/min 02/11/25 01:46 eGFR 52.75 02/11/25 01:46 BUN/Creatinine Ratio 14.1 (10-20) 02/11/25 01:46 Glucose 185 mg/dl (70-99(Fasting)) H 02/11/25 01:46 Uric Acid 6.3 mg/dl (2.6-7.2) 02/11/25 01:46 Calcium 8.9 mg/dl (8.6-10.3) 02/11/25 01:46 Total Bilirubin 0.3 mg/dl (0.2-1.0) 02/11/25 01:46 AST 25 U/L (13-39) 02/11/25 01:46 ALT 23 U/L (7-52) 02/11/25 01:46 Alkaline Phosphatase 73 U/L (34-104) 02/11/25 01:46 C-Reactive Protein 15.74 mg/dl (0-0.5) H 02/11/25 01:46 Total Protein 7.0 gm/dl (6.0-8.3) 02/11/25 01:46 Albumin 3.2 gm/dl (3.4-5.0) L 02/11/25 01:46 Globulin 3.8 gm/dl (2.5-4.0) 02/11/25 01:46 Albumin/Globulin Ratio 0.8 (0.9-2) L 02/11/25 01:46 Procalcitonin 0.30 ng/ml (0-0.5) 02/11/25 01:46 Impressions Ankle X-Ray 02/11/25 02:31 EXAM: XR ankle RT min 3V routine CLINICAL HISTORY: ankle pain/swelling TECHNIQUE: X-ray images of the right ankle were obtained in anteroposterior (AP), lateral, and mortise projections. COMPARISON: No prior studies available for comparison. FINDINGS: Bone Structure: An inferior calcaneal spur is seen. The bone structure is normal and aligned. There is no evidence of fracture or dislocation. Joint Spaces: The joint spaces are normal. There is no evidence of joint effusion or subluxation. Soft Tissues: The soft tissues appear normal and unremarkable. Vascular calcifications seen in between the tibia and fibula. IMPRESSION: An inferior calcaneal spur is seen. Normal X-ray of the right ankle. There is no evidence of acute fracture, dislocation. Disclaimer: A subtle bone abnormality or fracture may not be readily apparent on X-rays, thus clinical correlation and further imaging including follow-up CT, MRI, or follow-up X-rays are advised as needed. Electronically signed by Virgilio Morris 02-11-2025 03:22 AM Venous Doppler Study 02/11/25 02:31 EXAM: US venous doppler LE RT CLINICAL HISTORY: Leg swelling/pain TECHNIQUE: Ultrasound examination of the right lower extremity veins was performed in real time and with duplex imaging. One or more of the following were performed: spectral analysis, resistive index, waveform analysis, and pulsed Doppler. COMPARISON: None. FINDINGS: Normal phasic, non-pulsatile, and spontaneous flow is noted in the right GSV, common femoral, superficial femoral, popliteal, anterior tibial, posterior tibial, and peroneal veins. The visualized veins of the right lower extremity demonstrate normal compressibility. No sonographic evidence of acute deep vein thrombosis (DVT) is detected in the visualized veins of the lower extremity. Compression and Augmentation: All evaluated veins compress fully with the applied transducer pressure. Augmentation of venous flow is noted with distal compression. Additional Findings: No evidence of intraluminal thrombus. Mild edema is noted in the right lower extremity. IMPRESSION: 1. No sonographic evidence of acute DVT is detected at the time of examination. 2. Mild edema is noted in the right lower extremity. Disclaimer: DVT could be missed early in the disease when clot burden is minimal. For patients with moderate and high pretest probability of DVT and negative ultrasound, the [employer] clinical guidelines recommend testing with a D-dimer assay or repeat ultrasound in 5-7 days. If symptoms worsen, the Society of radiologists in ultrasound recommends repeating ultrasound even earlier. Electronically signed by Demarcus Moscoso 02-11-2025 04:18 AM Code Status & VTE Plan Code Status Full code VTE Prophylaxis Plan VTE Prophylaxis will be ordered: Yes PG Care Time/CCT Total # of Minutes Spent Total Time Spent with Patient: Total time spent is greater than 50% in coordination of care (as documented) at patient's floor/unit and/or counseling patient: Coding Level of Care Code 26309 INT INP/OBS CARE 3/75MIN Diagnoses Pain and swelling of right ankle M25.571; M25.471 Diabetes mellitus, type 2 E11.9 Hypertension I10 History of anemia Z86.2
[2025-02-11] MEDS ORDERED: ACETAMINOPHEN 500 MG TAB PO PRN (08:23)
[2025-02-11] MEDS ORDERED: GLUCOSE 40% GEL 15 GM TUBE PO PRN (08:23)
[2025-02-11] MEDS ORDERED: GLUCAGON FOR INJ 1 MG VIAL SQ PRN (08:23)
[2025-02-11] MEDS ORDERED: CARBOHYDRATES FOR HYPOGLYCEMIA PO PRN (08:23)
[2025-02-11] MEDS ORDERED: GLUCOSE 10 TAB/TUBE PO PRN (08:23)
[2025-02-11] MEDS ORDERED: DEXTROSE 50% 50 ML SYRINGE IV PRN (08:23)
[2025-02-11] MEDS ORDERED: ONDANSETRON INJ 2 MG/ML 2 ML VIAL IV PRN (08:23)
[2025-02-11] MEDS ORDERED: HYDROmorphone INJ 0.5 MG/0.5 ML SYR IV PRN (08:23)
[2025-02-11] MEDS: CEROVITE ADV FORMULA TAB PO SCH (09:31)
[2025-02-11] MEDS: CHOLECALCIFEROL 25 MCG (1000 UNITS) TAB PO SCH (09:31)
[2025-02-11] MEDS: CYANOCOBALAMIN (B-12) 500 MCG TABLET PO SCH (09:31)
[2025-02-11] MEDS: DOCUSATE SODIUM 100 MG CAP PO SCH (09:32)
[2025-02-11] MEDS: levETIRAcetam 500 MG TAB PO SCH (09:32)
[2025-02-11] MEDS: GABAPENTIN 300 MG CAP PO SCH (09:32)
[2025-02-11] MEDS: OXYBUTYNIN CHLORIDE XL 5 MG TABCR PO SCH (09:32)
[2025-02-11] MEDS: FERROUS SULFATE 325 MG TAB PO SCH (09:32)
[2025-02-11] MEDS: FOLIC ACID 1 MG TAB PO SCH (09:32)
[2025-02-11] MEDS: ASPIRIN 81 MG ECTAB PO SCH (09:32)
[2025-02-11] MEDS: INSULIN ASPART PER UNIT CHARGE SC SCH (10:31)
--- NOTE | 2025-02-11 11:36 | Hospitalist Progress Note ---
Date of Service February 11, 2025 Assessment & Plan (1) Pain and swelling of right ankle: (2) Diabetes mellitus, type 2: (3) Hypertension: (4) History of anemia: Plan Patient is a 80-year-old male with past medical history including right reverse total shoulder arthroplasty on 01/08/2025, anemia, diabetes mellitus, prostate cancer, lumbar spinal stenosis with neurogenic claudication, seizure disorder, hypertension, overactive bladder, and urinary incontinence who presented to the ED on 02/10 for right ankle swelling, redness, and pain #Right ankle pain and swelling Examination right foot and ankle consistent with gout/pseudogout ESR (78) and CRP (15.74) elevated again, higher than previous Continue Solu Medrol 40mg IV TID & Colchicine 0.6mg PO BID. Tick panel negative; Uric acid WNL; Procal WNL. ALEXUS/RF pending. Pain regimen: Mild Tylenol; Moderate Oxy; Severe Dilaudid. PT/OT consutled --> rec home w/ . #History of REGINALDO and NSAID intolerance Discussed with patient that this is likely secondary to being on irbesartan, and this will be changed from irbesartan 300 mg to amlodipine 5 mg. Will also discontinue ascorbic acid #Diabetes mellitus A1c 12/18/24 6.6% Hold metformin Placed on Accu-Cheks with NovoLog SSI Expect that his blood sugar may go up somewhat being on steroids. #Seizure disorder Continue Keppra 1000 mg p.o. twice daily Continue gabapentin 600 mg p.o. twice daily Will discontinue tramadol due to possibility of lowering seizure threshold #Anemia More recent change compared to February 05 and is 9.2, presently 7.8, at last admission 7.4-7.5 Continue with his ferrous sulfate, B12, and folate Tick panel negative. Check B12, Folate, and Iron panel in AM. DVT prophylaxis: SCD's Code: full Admission and Anticipated Discharge Date Admission Date: February 11, 2025 Supervising Physician Co-Signing Physician Notes The patient was not seen by me. The chart was reviewed. Case discussed with SHYLA Orellana. Agree with assessment and plan Catherine Cedillo was seen & examined this afternoon. He reports his right ankle pain is improving. States he was able to bear weight today while working with therapy. Physical Exam Physical Exam: General: NAD, VS: BP 110/62; P82; R13; T37.8C Resp: normal respiratory effort Extremities: Moves all extremities, no erythema noted on right ankle. Minimal edema. Mild tenderness to palpation of lateral ankle. Neuro: A&O x3 Skin: intact, no lesions noted Results & Data Results & Data Vital Signs (Past 12 Hours) Vital Signs Temp Pulse Pulse Resp BP BP Pulse Ox 02/11/25 11:00 79 15 139/75 93 02/11/25 10:48 91 H 17 125/94 92 02/11/25 09:29 80 21 120/64 95 02/11/25 08:00 79 17 147/79 H 92 02/11/25 07:00 86 19 139/52 L 96 02/11/25 06:50 81 17 96 02/11/25 06:41 78 18 94 02/11/25 06:32 77 20 94 02/11/25 06:21 134/57 L 02/11/25 06:21 134/57 L 02/11/25 06:21 134/57 L 02/11/25 06:21 134/57 L 02/11/25 06:21 134/57 L 02/11/25 06:20 82 18 02/11/25 06:11 95 H 23 02/11/25 06:02 85 23 02/11/25 05:50 83 18 02/11/25 05:49 78 02/11/25 05:41 78 18 94 02/11/25 05:32 77 20 96 02/11/25 05:20 74 9 L 96 02/11/25 05:12 77 20 95 02/11/25 05:00 79 15 96 02/11/25 05:00 122/62 02/11/25 05:00 122/62 02/11/25 05:00 122/62 02/11/25 05:00 122/62 02/11/25 05:00 122/62 02/11/25 05:00 78 19 122/62 95 02/11/25 04:51 77 19 96 02/11/25 04:42 80 19 96 02/11/25 04:30 81 18 95 02/11/25 04:21 85 23 97 02/11/25 04:12 80 16 93 02/11/25 04:00 131/64 02/11/25 04:00 131/64 02/11/25 04:00 131/64 02/11/25 04:00 131/64 02/11/25 04:00 131/64 02/11/25 04:00 81 16 97 02/11/25 03:51 85 23 95 02/11/25 03:42 82 12 02/11/25 03:36 86 19 95 02/11/25 03:36 127/56 L 02/11/25 03:36 127/56 L 02/11/25 03:36 127/56 L 02/11/25 03:36 127/56 L 02/11/25 03:36 127/56 L 02/11/25 02:51 90 20 02/11/25 02:42 95 H 22 02/11/25 02:30 96 H 20 02/11/25 02:21 96 H 15 02/11/25 02:12 101 H 18 02/11/25 02:00 101 H 20 02/11/25 02:00 124/56 L 02/11/25 02:00 124/56 L 02/11/25 01:49 37.8 C H 101 H 12 136/84 93 02/11/25 01:45 104 H O2 Del Method 02/11/25 11:00 Room Air 02/11/25 10:48 Room Air 02/11/25 09:29 Room Air 02/11/25 08:00 Room Air 02/11/25 07:00 Room Air 02/11/25 06:50 02/11/25 06:41 02/11/25 06:32 02/11/25 06:21 02/11/25 06:21 02/11/25 06:21 02/11/25 06:21 02/11/25 06:21 02/11/25 06:20 02/11/25 06:11 02/11/25 06:02 02/11/25 05:50 02/11/25 05:49 02/11/25 05:41 02/11/25 05:32 02/11/25 05:20 02/11/25 05:12 02/11/25 05:00 02/11/25 05:00 02/11/25 05:00 02/11/25 05:00 02/11/25 05:00 02/11/25 05:00 02/11/25 05:00 Room Air 02/11/25 04:51 02/11/25 04:42 02/11/25 04:30 02/11/25 04:21 02/11/25 04:12 02/11/25 04:00 02/11/25 04:00 02/11/25 04:00 02/11/25 04:00 02/11/25 04:00 02/11/25 04:00 02/11/25 03:51 02/11/25 03:42 02/11/25 03:36 02/11/25 03:36 02/11/25 03:36 02/11/25 03:36 02/11/25 03:36 02/11/25 03:36 02/11/25 02:51 02/11/25 02:42 02/11/25 02:30 02/11/25 02:21 02/11/25 02:12 02/11/25 02:00 02/11/25 02:00 02/11/25 02:00 02/11/25 01:49 Room Air 02/11/25 01:45 PG Care Time/CCT Total # of Minutes Spent Total Time Spent with Patient: Total time spent is greater than 50% in coordination of care (as documented) at patient's floor/unit and/or counseling patient: Coding Level of Care Code None Diagnoses Pain and swelling of right ankle M25.571; M25.471 Diabetes mellitus, type 2 E11.9 Hypertension I10 History of anemia Z86.2
[2025-02-11] MEDS ORDERED: methylPREDNISolone 10 mg/mL (For Ped Dose < 7mg) IV SCH (14:00)
[2025-02-11] MEDS: COLCHICINE 0.6 MG TAB PO SCH (21:12)
[2025-02-11] MEDS: ZOLPIDEM TARTRATE 5 MG TAB PO PRN (22:17)
[2025-02-12 00:07] VITALS: TEMP 97.7
[2025-02-12 07:14] VITALS: BP 135/58; PULSE 77; RESP 16; O2SAT 91
[2025-02-12 08:29] LABS: Hematocrit (blood only) 22.5 % (42.0-52.0); Hemoglobin 7.4 g/dL (14.0-18.0); Mean Corpuscular Hemoglobin 28.0 pg (25.0-34.0); Mean Corpuscular Volume 85.2 fL (80.0-100.0); Platelet Count 255 K/uL (130-400); RDW Standard Deviation 46.1 fL (36.4-46.3); Red Blood Count 2.64 M/uL (4.70-6.10); White Blood Count 14.45 K/ul (4.8-10.8)
[2025-02-12 08:39] LABS: Hemoglobin A1C 7.3 % (4.5-5.6)
[2025-02-12 08:53] LABS: Immature Granulocytes # (auto) 0.11 K/uL (0.01-0.20); Immature Granulocytes % (auto) 0.8 %
[2025-02-12 08:58] LABS: Alanine Aminotransferase 15 U/L (7-52); Albumin Globulin Ratio 0.9 (0.9-2); Albumin Level 3.1 gm/dl (3.4-5.0); Alkaline Phosphatase 68 U/L (34-104); Anion Gap 8 (3-11); Bilirubin,Total 0.3 mg/dl (0.2-1.0); Blood Urea Nitrogen 23 mg/dl (6-23); Calcium 9.0 mg/dl (8.6-10.3); Carbon Dioxide 24 mmol/L (21-32); Chloride 106 mmol/L (98-107); Creatinine Clr Calc Pharmacy 53.7 ml/min; Globulin 3.6 gm/dl (2.5-4.0); Glucose 187 mg/dl (70-99(Fasting)); Iron < 10 mcg/dl (35-175); Magnesium 1.7 mg/dl (1.7-2.4); Potassium 4.4 mmol/L (3.5-5.1); Sodium 138 mmol/L (136-145); Total Iron Binding Cap Calc 188 mcg/dl (250-450); Total Protein 6.7 gm/dl (6.0-8.3); Transferrin 134 mg/dl (200-360)
[2025-02-12 09:17] LABS: Folate (Folic Acid),Ser orPlas > 22.30 ng/ml (>5.38)
[2025-02-12 09:18] LABS: Vitamin B12 678 pg/ml (180-914)
--- NOTE | 2025-02-12 10:41 | Communication Note ---
Date of Service: February 12, 2025 By CMS guidelines, a determination that the admission or continued stay is not medically necessary has been made by a member of the UR committee and trent farrell for this hospital stay, therefore a Code 44 will be completed and the Inpatient admission will be changed to outpatient.
--- NOTE | 2025-02-12 10:49 | Discharge Summary ---
Discharge Summary Date of Service February 12, 2025 Principal Dx & Hospital Course #1 = Principal Diagnosis (1) Pain and swelling of right ankle: (2) Diabetes mellitus, type 2: (3) Hypertension: (4) History of anemia: Plan Patient is a 80-year-old male with past medical history including right reverse total shoulder arthroplasty on 01/08/2025, anemia, diabetes mellitus, prostate cancer, lumbar spinal stenosis with neurogenic claudication, seizure disorder, hypertension, overactive bladder, and urinary incontinence who presented to the ED on 02/10 for right ankle swelling, redness, and pain #Right ankle pain and swelling Examination right foot and ankle consistent with gout/pseudogout --> w/ resolution of erythema & is able to ambulate again prior to dc. ESR/CRP elevated, ALEXUS, RF pending --> concern for autoimmune condition - consider a further workup on outpatient basis based on results of ALEXUS/RF. Tick panel negative; Uric acid WNL; Procal WNL. s/p Solu Medrol --> transition to prednisone taper on dc. Continue Colchicine 0.6mg BID for additional 6 days. PT/OT consutled --> rec home w/ . #History of REGINALDO and NSAID intolerance Discussed with patient that this is likely secondary to being on irbesartan, and this will be changed from irbesartan 300 mg to amlodipine 5 mg on discharge. Will also discontinue ascorbic acid #Diabetes mellitus A1c 12/18/24 6.6% Resume outpatient regimen. #Seizure disorder Continue Keppra 1000 mg p.o. twice daily Continue gabapentin 600 mg p.o. twice daily Will discontinue tramadol due to possibility of lowering seizure threshold #Anemia More recent change compared to February 05 and is 9.2, presently 7.4, at last admission 7.4-7.5 Continue with his ferrous sulfate, B12, and folate B12/Folate WNL Iron panel revealed Fe < 10, % sat unable to be performed, TIBC 188, and transferrin 134 --> s/p IV Venofer x 1 given 02/12. Consider further IV iron infusions outpatient. Tick panel negative. Patient discharged home 02/12. Notes For Next Care Provider consider further IV iron infusions outpatient. concern for possible rheumatoid arthritis Medication Changes From Visit discontinued irbesartan and started amlodipine. ascorbic acid also discontinued. Admission HPI Per Admitting Provider Patient is a 80-year-old male with past medical history including right reverse total shoulder arthroplasty on 01/08/2025, anemia, diabetes mellitus, prostate cancer, lumbar spinal stenosis with neurogenic claudication, seizure disorder, hypertension, overactive bladder, and urinary incontinence. He was most recently admitted to [facility] from 02/05-02/08/2025 for right wrist pain and swelling with cellulitis. He was placed on vancomycin IV and Zosyn IV x 3 days, and was discharged on Augmentin 875 mg twice daily x 10 days. His right wrist was aspirated during that hospitalization, and culture has since been negative. He was also noted to have partial tendon tear in the right wrist and was to follow-up in the outpatient setting with orthopedic surgery. On 02/09, he began to have right ankle swelling, redness, and pain which progressed to the point th at he came to the emergency department on 02/10 due to inability to bear weight. Workup in the emergency department included a negative right ankle x-ray, and negative right lower extremity venous Doppler other than showing some mild edema. CRP is elevated 15.74, and ESR elevated at 78, but has progressed from previous admission. The patient was referred to the [facility] hospitalist service for further evaluation and treatment. Discharge Exam General: NAD, VS: BP 135/58; P77; R16; T36.5C Resp: normal respiratory effort, Extremities: Moves all extremities, right ankle without erythema, edema, and no tenderness to palpation. Neuro: A&O x3 Skin: intact, no lesions noted Discharge Plan Discharge Items Patient Disposition: Home - Self-Care Reason For Visit: R ankle pain Discharge Diagnosis: Gout Condition on Discharge: Fair Activity: Resume your previous activity Non-emergency contact: Primary Care Provider Call non-emergency contact if: you have any medication questions, your symptoms worsen and you have a fever Follow-up/Referrals: Ash Ackerman [Primary Care Provider] - Diet: Carb Consistent or DM2 and Heart Healthy Addtl Attending Provider Instructions: Mr. Musa, You were recently hospitalized secondary to right ankle pain. Based on your symptoms this is suspected to be secondary to a possible gout flare up. You have improved on steroids and a medication called Colchicine which will be continued on discharge. Based on your recent hospital stay for right wrist pain and now right ankle pain, there is a concern of an underlying autoimmune condition. Basic autoimmune labs have been drawn this hospital stay and are still pending for you upon discharge. Please follow up with your PCP regarding the results and further recommendations. Additionally, your hemoglobin was low throughout your hospital stay between 7.4- 7.8. An IV iron infusion was given prior to discharge. Please continue to follow up with your PCP for further lab draws and recommendations. Medications: Your medication list has been reviewed and reconciled upon discharge to ensure accuracy and continuity of care. An updated list of all your medications is included with your hospital discharge paperwork. Please review this list closely, and make note of any changes. Please take the prednisone taper as prescribed starting tomorrow, 02/13. Please take Colchicine twice daily for 6 days. Your first dose will be this evening, 02/12. Your Irbesartan which is used to help control your blood pressure has been discontinued and you have been placed on Amlodipine once daily. This medication will start at home tomorrow, 02/13. Ascorbic acid was also discontinued. Take your medications as instructed; do not skip a dose of your medicines. Make sure all of your doctors know every medicine you are taking (including kqro-pgl-xiknlxk medicines, vitamins, and supplements). Call your primary care provider before taking any new medicines (including over- the-counter medicines, vitamins, and supplements), because some of these may interact with your current medications, or may make your symptoms worse. Tell your primary care provider if you cannot afford your medications. Activity: You can do normal everyday activities as your body allows. Take rest breaks if you feel tired. Do not overexert. Stop activity if you have pain, shortness of breath or feel dizzy. Follow-up appointments: Make an appointment with your primary care physician within one week of discharge. A copy of this summary will be sent to them. Every time you see your primary care physician, or any other doctor, bring your medication list, and a list of questions. CONTACT YOUR PRIMARY CARE PROVIDER if you experience any of the following: Shortness of breath or difficulty breathing Fevers or chills Feeling tired with normal activity or experiencing dizziness or fainting Difficulty following your treatment plan, or difficulty taking medications CALL 911 OR GO TO THE EMERGENCY DEPARTMENT if you experience any of the following: Severe abdominal pain or nausea/vomiting Severe chest pain, or chest pain that radiates (moves) to your jaw or arm Sudden, severe shortness of breath or difficulty breathing Thank you for allowing us to participate in your care. Pending Studies at Discharge: Yes Studies:: autoimmune markers Stand-Alone Forms: [facility], Smoking Cessation Medications and DC Order Prescriptions: New amlodipine 5 mg Tablet 5 mg PO QAM Qty: 30 0RF colchicine [Colcrys] 0.6 mg Tablet 0.6 mg PO BID Qty: 12 0RF prednisone 10 mg tablet 10 mg PO DIRECTED Qty: 30 0RF Rx Instructions: Please take 4 tabs by mouth for 3 days followed by 3 tabs by mouth for 3 days followed by 2 tabs by mouth for 3 days followed by 1 tab by mouth for 3 days. Continued Repatha SureClick 140 mg/mL pen injector 0 mg subcut MONTHLY zolpidem [Ambien CR] 12.5 mg tablet,ext release multiphase 10 mg PO HS PRN (Reason: Insomnia) metformin 1,000 mg Tablet 1,000 mg PO BID gabapentin [Neurontin] 300 mg Capsule 600 mg PO BID levetiracetam [Keppra] 1,000 mg Tablet 1,000 mg PO BID PreserVision AREDS [id number] Tablet 1 tab PO BID docusate sodium [Stool Softener] 100 mg Capsule 100 mg PO BID ferrous sulfate [iron] 325 mg (65 mg iron) Tablet 325 mg PO BID folic acid 1 mg Tablet 1 mg PO QAM cholecalciferol (vitamin D3) [Vitamin D3] 25 mcg (1,000 unit) Capsule 25 mcg PO QAM cyanocobalamin (vitamin B-12) 1,000 mcg Capsule 1,000 mcg PO QAM tramadol 50 mg tablet 50 mg PO DAILY PRN (Reason: Pain) aspirin 81 mg tablet,delayed release (DR/EC) 81 mg PO BID Qty: 60 0RF oxycodone 5 mg tablet 5 mg PO Q4H PRN (Reason: pain) Qty: 30 0RF acetaminophen [Tylenol Extra Strength] 500 mg tablet 1,000 mg PO Q8H PRN (Reason: Pain) oxybutynin chloride 10 mg tablet extended release 24hr 10 mg PO QAM amoxicillin-pot clavulanate 875-125 mg tablet 1 tab PO Q12H Qty: 20 0RF Discontinued ascorbic acid (vitamin C) [Vitamin C] 1,000 mg Tablet 1,000 mg PO QAM irbesartan [Avapro] 300 mg Tablet 300 mg PO QAM Discharge Orders: Discharge Order (Routine); Ordered 02/12/25 Ordered By: Mahnaz Arriaza/Other Patient Handouts: Managing Type 2 Diabetes Admission Data Admit Date/Time: 02/11/25 05:49 Attending Provider: Bernard Cavanaugh Admit Provider: Sd Mendes Primary Care Provider: Ash Ackerman Other Providers: Sd Mendes Other Interventions: Discharge Summary Assessment (RN) Last Done: 02/12/25 12:52 Hospital Stay Data Consultations 02/11/25 04:43 ED Decision to Admit Stat Diagnostic Imagining Performed 02/11/25 02:31 US leg [US venous doppler LE RT] Stat Pending Results Patient Have Any Pending Studies at Discharge: Yes Discharge Instructions Given to Patient (Per Discharging Provider) Darren Reese were recently hospitalized secondary to right ankle pain. Based on your symptoms this is suspected to be secondary to a possible gout flare up. You have improved on steroids and a medication called Colchicine which will be continued on discharge. Based on your recent hospital stay for right wrist pain and now right ankle pain, there is a concern of an underlying autoimmune condition. Basic autoimmune labs have been drawn this hospital stay and are still pending for you upon discharge. Please follow up with your PCP regarding the results and further recommendations. Additionally, your hemoglobin was low throughout your hospital stay between 7.4- 7.8. An IV iron infusion was given prior to discharge. Please continue to follow up with your PCP for further lab draws and recommendations. Medications: Your medication list has been reviewed and reconciled upon discharge to ensure accuracy and continuity of care. An updated list of all your medications is included with your hospital discharge paperwork. Please review this list closely, and make note of any changes. Please take the prednisone taper as prescribed starting tomorrow, 02/13. Please take Colchicine twice daily for 6 days. Your first dose will be this evening, 02/12. Your Irbesartan which is used to help control your blood pressure has been discontinued and you have been placed on Amlodipine once daily. This medication will start at home tomorrow, 02/13. Ascorbic acid was also discontinued. Take your medications as instructed; do not skip a dose of your medicines. Make sure all of your doctors know every medicine you are taking (including [id number] medicines, vitamins, and supplements). Call your primary care provider before taking any new medicines (including over- the-counter medicines, vitamins, and supplements), because some of these may interact with your current medications, or may make your symptoms worse. Tell your primary care provider if you cannot afford your medications. Activity: You can do normal everyday activities as your body allows. Take rest breaks if you feel tired. Do not overexert. Stop activity if you have pain, shortness of breath or feel dizzy. Follow-up appointments: Make an appointment with your primary care physician within one week of discharge. A copy of this summary will be sent to them. Every time you see your primary care physician, or any other doctor, bring your medication list, and a list of questions. CONTACT YOUR PRIMARY CARE PROVIDER if you experience any of the following: Shortness of breath or difficulty breathing Fevers or chills Feeling tired with normal activity or experiencing dizziness or fainting Difficulty following your treatment plan, or difficulty taking medications CALL 911 OR GO TO THE EMERGENCY DEPARTMENT if you experience any of the following: Severe abdominal pain or nausea/vomiting Severe chest pain, or chest pain that radiates (moves) to your jaw or arm Sudden, severe shortness of breath or difficulty breathing Thank you for allowing us to participate in your care. Supervising Physician Co-Signing Physician Notes The patient was not seen by me. The chart was reviewed. Case discussed with SHYLA Orellana. Agree with assessment and plan Total Time Total Time Spent Total Time Spent (In Minutes): 45 Total Time Includes: Examination of the Patient, Discharge Planning and Medication Reconciliation Coding Level of Care Code 27779 INP/OBS DISCH >30 MIN Diagnoses Pain and swelling of right ankle M25.571; M25.471 Diabetes mellitus, type 2 E11.9 Hypertension I10 History of anemia Z86.2
[2025-02-12] MEDS: IRON SUCROSE 300 MG in SODIUM CHLORIDE 0.9% 250 ML IV ONE (10:54)
[2025-02-12] MEDS: INFLUENZA VACC TS2025-26(65y+)/PF (IIV3) 0.5mL Syr IM ONE (13:58)
[2025-02-12 15:55] LABS: Anti Nuclear Antibody Screen POSITIVE (NEGATIVE)
[2025-02-13 16:12] LABS: ANA Pattern Cytoplasmic; ANA Titer 1:80 titer
--- NOTE | 2025-02-14 08:01 | Electrocardiogram Report ---
Test Reason : Blood Pressure : */* mmHG Vent. Rate : 103 BPM Atrial Rate : 103 BPM P-R Int : 146 ms QRS Dur : 78 ms QT Int : 310 ms P-R-T Axes : 27 5 76 degrees QTcB Int : 406 ms Sinus tachycardia Cannot rule out Inferior infarct (cited on or before 24-Oct-2023) Anterior infarct , age undetermined Abnormal ECG When compared with ECG of 18-Dec-2024 15:02, Vent. rate has increased by 49 bpm Anterior infarct is now Present Confirmed by Mahin Mahoney ([id number]) on 02/14/2025 8:00:35 AM Referred By: REFERRED SELF Confirmed By: Mahin Mahoney
== END 2025-02-12 18:15 | disposition home or self-care (01) | DRG 554 ==
LOC: SUATTDRO → ED 01:43 → SUATTDRO 05:49 → INTOOBSV 05:49 → EDINP 05:49 → 3N 16:45